=== PATIENT | female | born 1995 | race Caucasian/White ===

== ENCOUNTER 2017-06-28 20:23 | Emergency (ER) | payer OTHER, SELFPAY | END 2017-06-28 21:46 | disposition home or self-care (01) | PROVIDERS: Emergency Provider Nurse Practitioner Family; Family Provider Emergency Medicine; Visit Provider Nurse Practitioner Family | DX: S93.401A Sprain of unspecified ligament of right ankle, initial encounter (principal); X50.1XXA Overexertion from prolonged static or awkward postures, initial encounter; Y93.01 Activity, walking, marching and hiking; Y92.480 Sidewalk as the place of occurrence of the external cause; Z79.899 Other long term (current) drug therapy | CPT/HCPCS: 73610; 73630; 99202 ==

== ENCOUNTER 2017-10-13 14:41 | Emergency (ER) | payer OTHER, SELFPAY ==
[2017-10-13 14:49] VITALS: BP 113/61; PULSE 64; RESP 20; TEMP 36.4; O2SAT 98; BMI 36.5
--- NOTE | 2017-10-13 14:51 | HMH.EDUTC ---
[facility] [place] Impression: Left otitis media Qualifiers: Otitis media type: suppurative Chronicity: acute Recurrence: not specified as recurrent Spontaneous tympanic membrane rupture: without spontaneous rupture Qualified Code(s): H66.002 - Acute suppurative otitis media without spontaneous rupture of ear drum, left ear Disposition: Home, Self-Care Condition on Discharge: Good Instructions: DI for Otitis Media (Middle Ear Infection)-Child Additional Instructions: See PCP if headache and sleep does not improve. Take antibiotic as directed and return to PCP or ED/UTC of symptoms worsen. Prescriptions: Amoxicillin [Amoxicillin 500mg Cap] 500 mg PO TID #30 cap Time of Disposition: 15:15 Medical Decision Making - Bright Inquiry Pt receiving controlled substance: No Vital Signs: 10/13/17 14:49 Temperature 97.6 F Temperature Source Temporal Artery Scan Pulse Rate [Brachial] 64 Respiratory Rate 20 Blood Pressure [Right Arm] 113/61 Blood Pressure Mean [Right Arm] 78 Blood Pressure Source [Right Arm] Automatic Cuff Blood Pressure Position [Right Arm] Sitting 02 Sat by Pulse Oximetry 98 Oxygen Delivery Method Room Air [facility] [place] - General Stated complaint: Left ear Hurting, Bad Antunez Time Seen by Provider: 10/13/17 15:04 Mode of Arrival: Ambulatory Source of Information: Patient Limitations: No Limitations Description of Symptoms (Recalled from Triage Doc. by RN): LEFT EAR PAIN AND HEADACHE (MIGRAINE) SINCE THE September. HEENT Symptoms (Recalled from RN notes): Yes Resp Symptoms (Recalled from RN notes): No Skin Symptoms (Recalled from RN notes): No MS Symptoms (Recalled from RN notes): No Functional Status (Recalled from RN notes): NA - History of Present Illness Provider Complaint: Patient presents with headache for 20 days and left ear pain for 2 days. She reports having a headache since her Mamaw . She has not been sleeping well. Her headache is relieved with Advil Migraine. Her headache is located in the frontotemporal region. She denies sore throat, GI upset, fevers, and sick contacts. - Related Data Home Medications Medication Instructions Recorded Confirmed medroxyprogesterone 150 mg/mL 150 mg IM ONCE 07/06/17 intramuscular suspension Previous Rx's Medication Instructions Recorded Amoxicillin [Amoxicillin 500mg 500 mg PO TID #30 cap 10/13/17 Cap] Allergies Allergy/AdvReac Type Severity Reaction Status Date / Time adhesive [ADHESIVE] Allergy Unknown SWELLING Verified 10/12/17 13:52 - Worker's Comp Is this a Worker's Comp case?: No [facility] History Laterality Cases: Bilateral: Tonsillectomy, Other Amputation: No Fractures: No - Social History Smoking Status: Current every day smoker Alcohol Intake: never Substance Use Type: denies use - Psychiatric History Expresses thoughts of harming self/others: None Suicide Plan Description: No Plan Family Hx:: No significant family history ROS Obtained: Yes All systems reviewed & no additional complaints - Constitutional Constitutional: Reports difficulty sleeping, Reports headache(s) - ENT Ears, Nose, Mouth, and Throat: Reports as per HPI Physical Exam - General General appearance: alert, in no apparent distress - Head Head exam: atraumatic - Eye Eye exam: Present: normal appearance - Expanded ENT Exam TM/Canal exam: Left TM: erythema Throat exam: Present: normal inspection - Chest Chest inspection: Present: symmetric chest wall rise - Respiratory Respiratory exam: Present: normal lung sounds bilaterally. Absent: respiratory distress, wheezes, accessory muscle use - Cardiovascular Cardiovascular exam: Present: regular rate, normal rhythm, normal heart sounds - Neurological Exam Neurological exam: Present: alert, oriented X3 - Psychiatric Psychiatric exam: Present: normal affect - Skin Skin exam: Present: warm, dry, intact - Lymphatic Lymphatic Findings:
--- NOTE | 2017-10-13 14:55 | ED_ITS ---
[facility] [place]ression: Left otitis media Qualifiers: Otitis media type: suppurative Chronicity: acute Recurrence: not specified as recurrent Spontaneous tympanic membrane rupture: without spontaneous rupture Qualified Code(s): H66.002 - Acute suppurative otitis media without spontaneous rupture of ear drum, left ear Disposition: Home, Self-Care Condition on Discharge: Good Instructions: DI for Otitis Media (Middle Ear Infection)-Child Additional Instructions: See PCP if headache and sleep does not improve. Take antibiotic as directed and return to PCP or ED/UTC of symptoms worsen. Prescriptions: Amoxicillin [Amoxicillin 500mg Cap] 500 mg PO TID #30 cap Time of Disposition: 15:15 Medical Decision Making - Bright Inquiry Pt receiving controlled substance: No Vital Signs: 10/13/17 14:49 Temperature 97.6 F Temperature Source Temporal Artery Scan Pulse Rate [Brachial] 64 Respiratory Rate 20 Blood Pressure [Right Arm] 113/61 Blood Pressure Mean [Right Arm] 78 Blood Pressure Source [Right Arm] Automatic Cuff Blood Pressure Position [Right Arm] Sitting 02 Sat by Pulse Oximetry 98 Oxygen Delivery Method Room Air [facility] [place] - General Stated complaint: Left ear Hurting, Bad Antunez Time Seen by Provider: 10/13/17 15:04 Mode of Arrival: Ambulatory Source of Information: Patient Limitations: No Limitations Description of Symptoms (Recalled from Triage Doc. by RN): LEFT EAR PAIN AND HEADACHE (MIGRAINE) SINCE THE September. HEENT Symptoms (Recalled from RN notes): Yes Resp Symptoms (Recalled from RN notes): No Skin Symptoms (Recalled from RN notes): No MS Symptoms (Recalled from RN notes): No Functional Status (Recalled from RN notes): NA - History of Present Illness Provider Complaint: Patient presents with headache for 20 days and left ear pain for 2 days. She reports having a headache since her Mamaw . She has not been sleeping well. Her headache is relieved with Advil Migraine. Her headache is located in the frontotemporal region. She denies sore throat, GI upset, fevers, and sick contacts. - Related Data Home Medications Medication Instructions Recorded Confirmed medroxyprogesterone 150 mg/mL 150 mg IM ONCE 07/06/17 intramuscular suspension Previous Rx's Medication Instructions Recorded Amoxicillin [Amoxicillin 500mg 500 mg PO TID #30 cap 10/13/17 Cap] Allergies Allergy/AdvReac Type Severity Reaction Status Date / Time adhesive [ADHESIVE] Allergy Unknown SWELLING Verified 10/12/17 13:52 - Worker's Comp Is this a Worker's Comp case?: No [facility] History Laterality Cases: Bilateral: Tonsillectomy, Other Amputation: No Fractures: No - Social History Smoking Status: Current every day smoker Alcohol Intake: never Substance Use Type: denies use - Psychiatric History Expresses thoughts of harming self/others: None Suicide Plan Description: No Plan Family Hx:: No significant family history ROS Obtained: Yes All systems reviewed & no additional complaints - Constitutional Constitutional: Reports difficulty sleeping, Reports headache(s) - ENT Ears, Nose, Mouth, and Throat: Reports as per HPI Physical Exam - General General appearance: alert, in no apparent distress - Head Head exam: atraumatic -
[2017-10-13 15:07] VITALS: BP 113/61; PULSE 64; RESP 20; TEMP 36.4; O2SAT 98
== END 2017-10-13 15:07 | disposition home or self-care (01) ==
PROVIDERS: Emergency Provider Physician Assistant; Family Provider Emergency Medicine; PCP Emergency Medicine
DX: H66.002 Acute suppurative otitis media without spontaneous rupture of ear drum, left ear (principal); F17.210 Nicotine dependence, cigarettes, uncomplicated
CPT/HCPCS: 99201

== ENCOUNTER → 2018-01-25 11:51 | Outpatient (CLI) | payer MEDICAID, SELFPAY ==
--- NOTE | 2018-01-25 11:55 | XR_ITS ---
XR foot RT min 3V HISTORY: ITS.REASON: foot pain ORDERING PHYSICIAN: Rakesh Leong PATIENT AGE: 22 years COMPARISON: Left foot same date FINDINGS: No fracture or dislocation. No lytic or blastic change. There is normal mineralization.. The joint spaces are well-preserved. No significant degenerative/arthritic changes. No erosive changes evident. IMPRESSION: Negative, no acute finding
--- NOTE | 2018-01-25 11:55 | XR_ITS ---
XR foot LT min 3V HISTORY: ITS.REASON: edema andrea foot pain ORDERING PHYSICIAN: Rakehs Leong PATIENT AGE: 22 years COMPARISON: Right foot same date FINDINGS: No fracture or dislocation. No lytic or blastic change. There is normal mineralization.. The joint spaces are well-preserved. No significant degenerative/arthritic changes. No erosive changes evident. IMPRESSION: Negative, no acute finding
[2018-01-25 12:59] LABS: Basophils % 0.5 % (0.1-2.0); Eosinophils # 0.2 K/mm3 (0.0-0.4); Eosinophils % 3.1 % (0.1-12.0); Hemoglobin 14.4 g/dL (12.2-16.2); Lymphocytes # 2.7 K/mm3 (0.7-4.5); Lymphocytes % 36.3 K/mm3 (10-50); Mean Corpuscular HGB Conc 31.9 g/dL (31.8-35.4); Mean Corpuscular Volume 90.9 fl (81-99); Mean Platelet Volume 6.7 fl (7.4-10.4); Monocytes # 0.5 K/mm3 (0.1-1.0); Monocytes % 7.4 % (1.7-9.3); Neutrophils # 3.9 K/mm3 (1.8-7.8); Neutrophils % 52.8 % (37.0-80.0); Platelet Count 319 K/mm3 (142-424); Red Blood Count 4.95 M/mm3 (4.20-5.40); Red Cell Distribution Width 12.2 % (11.5-17.5); White Blood Count 7.4 K/mm3 (4.5-13.0)
[2018-01-25 13:43] LABS: Alanine Aminotransferase 31 U/L (12-78); Albumin/Globulin Ratio 1.3 (1.1-1.8); Alkaline Phosphatase 101 U/L (46-116); Anion Gap 11.7 mEq/L (5-15); Aspartate Amino Transferase 12 U/L (15-37); Bilirubin,Total 1.1 mg/dL (0.2-1.0); Blood Urea Nitrogen 6 mg/dL (7-18); C-Reactive Protein 0.3 mg/L (0.0-0.9); Calcium 9.2 mg/dL (8.5-10.1); Carbon Dioxide 26 mmol/L (21.0-32.0); Chloride 107 mmol/L (98-107); Creatinine,Serum 0.79 mg/dL (0.55-1.02); Estimated Glomerular Filt Rate 93 ml/min (>60); GFR (African American) 112 ML/MIN (>60); Globulin 3.2 gm/dl (1.3-3.2); Glucose 69 mg/dL (74-106); Potassium 3.7 mmoL/L (3.5-5.1); Sodium 141 mmol/L (136-145); Total Protein,Serum 7.2 gm/dL (6.4-8.2)
[2018-01-25 16:05] LABS: Erythrocyte Sedimentation Rate 15 mm/hr (0-20)
== END ==
PROVIDERS: PCP Nurse Practitioner Family; Visit Provider Nurse Practitioner Family
DX: M79.671 Pain in right foot (principal); M79.672 Pain in left foot; R60.9 Edema, unspecified
CPT/HCPCS: 36415; 73630; 80053; 85025; 85651; 86140

== ENCOUNTER → 2018-01-27 13:01 | Outpatient (REF) | payer MEDICAID, SELFPAY ==
[2018-01-27 14:23] LABS: Collection Time,Urine 24 hours; Creatinine 24 Hour,Urine 2559 mg/24hr (630-2500); Creatinine,Urine Random 115 mg/dL (20-320); Total Volume,Urine 2225 mL (600-1600)
== END ==
LOC: LAB 13:01
PROVIDERS: Visit Provider Nurse Practitioner Family
DX: M79.671 Pain in right foot (principal); M79.672 Pain in left foot; R60.9 Edema, unspecified
CPT/HCPCS: 82570

== ENCOUNTER → 2018-08-25 11:11 | Outpatient (CLI) | payer MEDICAID, SELFPAY ==
--- NOTE | 2018-08-25 11:14 | MR_ITS ---
MR head/brain wo con HISTORY: Severe posttraumatic headache ITS.REASON: headache ORDERING PHYSICIAN: Willa Meza PATIENT AGE: 23 years Comparison: None TECHNIQUE: Standard multiplanar multiecho sequences are performed without contrast. FINDINGS: No midline shift, mass effect, intracranial hemorrhage, or hydrocephalus. No evidence of acute infarction or restricted diffusion. There is normal astorga-white matter differentiation with no abnormal white matter signal intensity apparent. No intra or extra-axial hemorrhage. The cerebellopontine angle, cerebellum, and brainstem have an unremarkable appearance the pituitary, optic chiasm, corpus callosum, and cerebello cervical junction have an unremarkable appearance. No acute calvarial abnormality. No sinus air-fluid level or mastoid effusion. There is mucosal thickening of the lower aspect of the right maxillary sinus with mucus retention cyst on the floor the left maxillary sinus at 15 mm. IMPRESSION: 1. No acute intracranial findings. Negative MRI of the brain. 2. Bilateral maxillary sinus disease
== END ==
PROVIDERS: PCP Nurse Practitioner Family; Visit Provider Nurse Practitioner Family
DX: R51 Headache (principal); V89.2XXA Person injured in unspecified motor-vehicle accident, traffic, initial encounter
CPT/HCPCS: 70551

== ENCOUNTER 2018-08-31 09:00 | Outpatient (RCR) | payer MEDICAID, SELFPAY | END 2018-08-31 09:05 | disposition home or self-care (01) | LOC: PT 09:00 | PROVIDERS: Visit Provider Nurse Practitioner Family | DX: M54.2 Cervicalgia (principal); M54.5 Low back pain | CPT/HCPCS: 97010; 97014; 97035; 97110; 97163; G0283 ==

== ENCOUNTER → 2018-09-21 16:34 | Outpatient (CLI) | payer MEDICAID, SELFPAY ==
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
== END ==
PROVIDERS: PCP Nurse Practitioner Family; Visit Provider Nurse Practitioner Family
DX: M54.5 Low back pain (principal); V89.2XXA Person injured in unspecified motor-vehicle accident, traffic, initial encounter
CPT/HCPCS: 72148; 76376

== ENCOUNTER → 2019-01-04 15:56 | Outpatient (CLI) | payer MEDICAID, SELFPAY ==
[2019-01-04 18:04] LABS: HCG,Quantitative 0 mIU/mL
== END ==
PROVIDERS: Visit Provider Nurse Practitioner Obstetrics & Gynecology
DX: Z32.00 Encounter for pregnancy test, result unknown (principal)
CPT/HCPCS: 36415; 84702

== ENCOUNTER 2020-04-13 11:19 | Emergency (ER) | payer OTHER, SELFPAY ==
[2020-04-13 11:45] VITALS: BP 139/90; PULSE 79; RESP 18; TEMP 36.6; O2SAT 99; BMI 37.4
--- NOTE | 2020-04-13 11:53 | HMH.EDUTC ---
[facility] [place] Clinical Impression: Otitis media Qualifiers: Otitis media type: unspecified Laterality: right Qualified Code(s): H66.91 - Otitis media, unspecified, right ear Headache Qualifiers: Headache type: unspecified Headache chronicity pattern: unspecified pattern Intractability: not intractable Qualified Code(s): R51.9 - Headache, unspecified Disposition: Home, Self-Care Condition on Discharge: Good Instructions: Middle Ear Infection, DI for Migraine, DI for Headache Additional Instructions: Go home and try to sleep off remainder of headache Return if needed Straight to ER if any life threatening symptoms Follow up with Family Doctor if no improvement or any worsening of symptoms Take medication as prescribed Prescriptions: Amoxicillin [Amoxicillin 875MG Tab] 875 mg PO Q12H #20 tab Transmission Status: Received by [id number] Referrals: Camacho Hoffmann MD [Primary Care Provider] - As needed Forms: Work/School Release Time of Disposition: 12:12 Medical Decision Making - Bright Inquiry Pt receiving controlled substance: No Bright was queried for this patient: No Vital Signs: 04/13/20 11:45 Temperature 97.8 F Temperature Source Oral Pulse Rate [Radial] 79 Respiratory Rate 18 Blood Pressure [Right Arm] 139/90 Blood Pressure Mean [Right Arm] 106 Blood Pressure Source [Right Arm] Automatic Cuff Blood Pressure Position [Right Arm] Sitting 02 Sat by Pulse Oximetry 99 Oxygen Delivery Method Room Air - Lab Data Lab results reviewed: Yes: I reviewed the patient's lab results. Lab Results 04/13/20 11:59: [facility] Clinic Negative Orders (Tests/Meds): ED MEDICATIONS Discontinued Medications Generic Name Dose Route Start Last Admin Trade Name Tony PRN Reason Stop Dose Admin Ketorolac Tromethamine 60 mg 04/13/20 12:13 04/13/20 12:15 Ketorolac 60mg/2ml Vial IM 04/13/20 12:14 60 mg ONCE ONE Administration Medical Decision Narrative: Patient states that Tordol injection is helping with headache [facility] [place] HPI - General Stated complaint: headache Time Seen by Provider: 04/13/20 11:57 Mode of Arrival: Ambulatory Source of Information: Patient Limitations: No Limitations Description of Symptoms (Recalled from Triage Doc. by RN): headache x 2 days HEENT Symptoms (Recalled from RN notes): Yes Resp Symptoms (Recalled from RN notes): No Skin Symptoms (Recalled from RN notes): No MS Symptoms (Recalled from RN notes): No Functional Status (Recalled from RN notes): wnl - History of Present Illness Provider Complaint: Patient states that she has had a headache and pain in her right ear for several days that has got worse States that she has been taking over the counter Tylenol but hasnt helped much States that today her ear was still bothering her and her headache was still there so she came in to get checked - Related Data Previous Rx's Medication Instructions Recorded quetiapine 50 mg tablet 50 mg PO QHS #30 tab 03/05/20 quetiapine 25 mg tablet See Rx Instructions PO QHS #45 tab 03/18/20 Amoxicillin [Amoxicillin 875MG 875 mg PO Q12H #20 tab 04/13/20 Tab] Allergies Allergy/AdvReac Type Severity Reaction Status Date / Time adhesive [ADHESIVE] Allergy Unknown SWELLING Verified 03/12/19 22:55 - Worker's Comp Is this a Worker's Comp case?: No [facility] History - Hepatitis A Screen Drug use history?: No High risk sexual behaviors?: No History of sexually transmitted infection?: No Currently employed?: No Childcare worker?: No Do you have indoor plumbing?: Yes Do you have electricity?: Yes Attestation statement:: This patient has been screened for Hepatitis A risk factors. I have reviewed the patient's past medical history: Yes Medical History: Reports:: Hypertension Denies:: Cancer, Diabetes Mellitus Type 1, Diabetes Mellitus Type 2, MRSA Laterality Cases: Bilateral: Tonsillectomy, Other Other Surgeries: Yes: No Previous Surgery Amp
[2020-04-13 12:11] LABS: UTC Pregnancy Test, Urine Negative (Negative)
[2020-04-13 12:28] VITALS: BP 139/90; PULSE 79; RESP 18; TEMP 36.6; O2SAT 99
== END 2020-04-13 12:29 | disposition home or self-care (01) ==
PROVIDERS: Emergency Provider Nurse Practitioner; PCP Emergency Medicine
DX: H66.91 Otitis media, unspecified, right ear (principal); R51.9 Headache, unspecified; I10 Essential (primary) hypertension
CPT/HCPCS: 81025; 96372; 99202

== ENCOUNTER 2020-05-07 16:44 | Emergency (ER) | payer OTHER, SELFPAY ==
[2020-05-07 17:16] VITALS: BP 124/53; PULSE 84; RESP 16; TEMP 37; O2SAT 100; BMI 35.5
--- NOTE | 2020-05-07 17:34 | HMH.EDUTC ---
[facility] [place]: Otitis media Qualifiers: Otitis media type: suppurative Chronicity: acute Laterality: bilateral Recurrence: non-recurrent Spontaneous tympanic membrane rupture: without spontaneous rupture Qualified Code(s): H66.003 - Acute suppurative otitis media without spontaneous rupture of ear drum, bilateral Disposition: Home, Self-Care Condition on Discharge: Good Instructions: Middle Ear Infection Additional Instructions: Drink plenty of fluids. Take tylenol or ibuprofen for pain or fever. Take the medications as directed. Follow up with your regular doctor. GO TO THE ER FOR ANY WORSENING SYMPTOMS Prescriptions: Amoxicillin [Amoxicillin 500mg Tab] 500 mg PO TID 10 Days #30 tab Transmission Status: Re[facility] by [facility] Referrals: Camacho Hoffmann MD [Primary Care Provider] - Forms: Work/School Release Time of Disposition: 17:47 Medical Decision Making - Medical Records Medical records reviewed: No: I reviewed the patient's medical records. - Bright Inquiry Pt receiving controlled substance: No Vital Signs: 05/07/20 17:16 05/07/20 17:49 Temperature 98.6 F 98.6 F Temperature Source Oral Pulse Rate 84 Pulse Rate [Right Brachial] 84 Respiratory Rate 16 16 Blood Pressure 124/53 L Blood Pressure [Right Arm] 124/53 L Blood Pressure Mean [Right Arm] 76 Blood Pressure Source [Right Arm] Automatic Cuff Blood Pressure Position [Right Arm] Sitting 02 Sat by Pulse Oximetry 100 Oxygen Delivery Method Room Air [facility] [place] - General Stated complaint: Headache, Ear pain Time Seen by Provider: 05/07/20 17:34 Mode of Arrival: Ambulatory Source of Information: Patient Limitations: No Limitations Description of Symptoms (Recalled from Triage Doc. by RN): PATIENT C/O HEADACHE AND BILATERAL EAR PAIN X 3 DAYS HEENT Symptoms (Recalled from RN notes): Yes Resp Symptoms (Recalled from RN notes): No Skin Symptoms (Recalled from RN notes): No MS Symptoms (Recalled from RN notes): No Functional Status (Recalled from RN notes): WNL - History of Present Illness Provider Complaint: She c/o 2 days of worsening bilateral ear pain. - Related Data Home Medications Medication Instructions Recorded Confirmed Quetiapine Fumarate See Rx Instructions PO QHS 05/07/20 05/07/20 Previous Rx's Medication Instructions Recorded Amoxicillin [Amoxicillin 500mg Tab] 500 mg PO TID 10 Days #30 tab 05/07/20 Allergies Allergy/AdvReac Type Severity Reaction Status Date / Time adhesive [ADHESIVE] Allergy Unknown SWELLING Verified 03/12/19 22:55 - Worker's Comp Is this a Worker's Comp case?: No [facility] History - Hepatitis A Screen Drug use history?: No High risk sexual behaviors?: No History of sexually transmitted infection?: No Currently employed?: No Childcare worker?: No Do you have indoor plumbing?: Yes Do you have electricity?: Yes Attestation statement:: This patient has been screened for Hepatitis A risk factors. I have reviewed the patient's past medical history: Yes Medical History: Reports:: Hypertension Denies:: Cancer, Diabetes Mellitus Type 1, Diabetes Mellitus Type 2, MRSA Laterality Cases: Bilateral: Tonsillectomy, Other Other Surgeries: Yes: No Previous Surgery Amputation: No Fractures: No - Social History Smoking Status: Current every day smoker Tobacco Type: cigarettes # Packs/Day (cigarettes): 1 Alcohol Intake: never Alcohol Intake Frequency:: other Substance Use Type: denies use Occupational Status: other Housing: house Family Hx:: Hypertension, Diabetes ROS Obtained: Yes All systems reviewed & no additional complaints - Constitutional Constitutional: Denies chills, Denies fever(s), Reports poor appetite, Reports malaise - Eyes Eyes: Denies eye discharge - ENT Ears, Nose, Mouth, and Throat: Reports as per HPI Physical Exam - General General appearance: alert, in no apparent distress - Head Head exam: a
[2020-05-07 17:49] VITALS: BP 124/53; PULSE 84; RESP 16; TEMP 37; O2SAT 100
== END 2020-05-07 17:53 | disposition home or self-care (01) ==
PROVIDERS: Emergency Provider Nurse Practitioner Family; PCP Emergency Medicine
DX: H66.003 Acute suppurative otitis media without spontaneous rupture of ear drum, bilateral (principal); I10 Essential (primary) hypertension; F17.210 Nicotine dependence, cigarettes, uncomplicated
CPT/HCPCS: 99201

== ENCOUNTER 2020-05-10 20:12 | Emergency (ER) | payer OTHER, SELFPAY ==
[2020-05-10 20:19] VITALS: BP 120/71; PULSE 98; RESP 19; TEMP 37.1; O2SAT 98; BMI 35.5
--- NOTE | 2020-05-10 20:41 | HMH.EDUTC ---
[facility] [place] Clinical Impression: Sore throat, Cough Disposition: Home, Self-Care Condition on Discharge: Good Instructions: Cough, Sore Throat, Middle Ear Infection Additional Instructions: Continue taking oral antibiotics for your ear infection, you need to take them as prescribed for the length of time prescribed to clear up ear infection *Warm salt water gargles may help to soothe the throat *Throat Lozenges *Warm fluids like tea with honey may help to soothe the throat *Sleep elevated *Humidifier/Vaporizer *Flonase 2 sprays in each nostril daily but be aware that it may take 2-3 days before you notice improvement Your throat swab was sent for culture. Those results are typically sent to your primary care. Be sure to follow up in 2-3 days with your family doctor/primary care physician if no improvement so they can review those result and treat if necessary. If you don?t have a primary care doctor, I recommend you get one but in the mean time, you will have to return to a walk in clinic Follow up IMMEDIATELY for new or worsening symptoms or no Noticeable improvement over the next 48-72 hours. 911 for difficulty breathing or swallowing Prescriptions: Fluticasone Propionate [Flonase 50mcg nasal spray 16gm] 1 spr NS DAILY #1 bottle Transmission Status: Pending to [facility] # methylPREDNISolone [Medrol 4mg tab] 4 mg PO DIRECTED #21 tab Transmission Status: Pending to [facility] # Benzonatate [Tessalon Perle 100mg Cap*] 100 mg PO TID PRN #15 cap PRN Reason: Cough Transmission Status: Pending to [facility] # Referrals: Camacho Hoffmann MD [Primary Care Provider] - As needed Forms: Work/School Release Time of Disposition: 20:49 Medical Decision Making - Bright Inquiry Pt receiving controlled substance: No Bright was queried for this patient: No Vital Signs: 05/10/20 20:19 Temperature 98.7 F Temperature Source Oral Pulse Rate [Radial] 98 H Respiratory Rate 19 Blood Pressure [Right Arm] 120/71 Blood Pressure Mean [Right Arm] 87 Blood Pressure Source [Right Arm] Automatic Cuff Blood Pressure Position [Right Arm] Sitting 02 Sat by Pulse Oximetry 98 Oxygen Delivery Method Room Air - Lab Data Lab results reviewed: Yes: I reviewed the patient's lab results. [facility] [place] HPI - General Stated complaint: Sore throat, cough Time Seen by Provider: 05/10/20 20:41 Mode of Arrival: Ambulatory Source of Information: Patient Limitations: No Limitations Description of Symptoms (Recalled from Triage Doc. by RN): sore throat, cough HEENT Symptoms (Recalled from RN notes): Yes Resp Symptoms (Recalled from RN notes): No Skin Symptoms (Recalled from RN notes): No MS Symptoms (Recalled from RN notes): No Functional Status (Recalled from RN notes): wnl - History of Present Illness Provider Complaint: Patient states that is currently on antibiotics for her ears but she has continued to have sore throat States that she hasnt been around anyone with COVID States that she was worried that she may have strep throat or something since boyfriend just got over bronchitis States that she has also been having pressure like feeling still in her ears like she has fluid in there - Related Data Home Medications Medication Instructions Recorded Confirmed Quetiapine Fumarate See Rx Instructions PO QHS 05/07/20 05/07/20 Previous Rx's Medication Instructions Recorded Amoxicillin [Amoxicillin 500mg Tab] 500 mg PO TID 10 Days #30 tab 05/07/20 Benzonatate [Tessalon Perle 100mg 100 mg PO TID PRN #15 cap 05/10/20 Cap*] Fluticasone Propionate [Flonase 1 spr NS DAILY #1 bottle 05/10/20 50mcg nasal spray 16gm] methylPREDNISolone [Medrol 4mg 4 mg PO DIRECTED #21 tab 05/10/20 tab] Allergies Allergy/AdvReac Type Severity Reaction Status Date / Time adhesive [ADHESIVE] Allergy Unknown SWELLING Verified 03/12/19 22:55 - Worker's Comp Is this a Worker's Comp c
[2020-05-10 20:52] LABS: UTC Strep Screen (Rapid) Negative (Negative)
[2020-05-10 20:53] VITALS: BP 120/71; PULSE 98; RESP 19; TEMP 37.1; O2SAT 98
== END 2020-05-10 20:56 | disposition home or self-care (01) ==
PROVIDERS: Emergency Provider Nurse Practitioner; PCP Emergency Medicine
DX: J02.9 Acute pharyngitis, unspecified (principal); R05 Cough; F17.210 Nicotine dependence, cigarettes, uncomplicated; I10 Essential (primary) hypertension
CPT/HCPCS: 87880; 96372; 99202

== ENCOUNTER 2020-05-25 11:36 | Emergency (ER) | payer OTHER, SELFPAY ==
[2020-05-25 12:46] VITALS: BP 135/86; PULSE 91; RESP 14; TEMP 36.8; O2SAT 99; BMI 35.5
--- NOTE | 2020-05-25 12:51 | HMH.EDUTC ---
[facility] [place] Clinical Impression: Headache Qualifiers: Headache type: unspecified Headache chronicity pattern: unspecified pattern Intractability: not intractable Qualified Code(s): R51.9 - Headache, unspecified Disposition: Home, Self-Care Condition on Discharge: Good Instructions: DI for Headache Additional Instructions: Go home lay down and sleep off remainder of migraine headache Return if needed Straight to ER if any life threatening symptoms Follow up with Family Doctor if no improvement or any worsening of symptoms Referrals: Camacho Hoffmann MD [Primary Care Provider] - Forms: Work/School Release Time of Disposition: 13:26 Medical Decision Making - Bright Inquiry Pt receiving controlled substance: No Bright was queried for this patient: No Vital Signs: 05/25/20 12:46 Temperature 98.2 F Temperature Source Oral Pulse Rate [Left Radial] 91 H Pulse Rate [Right Radial] 91 H Respiratory Rate 14 Blood Pressure [Right Arm] 135/86 Blood Pressure Mean [Right Arm] 102 Blood Pressure Source [Right Arm] Automatic Cuff Blood Pressure Position [Right Arm] Sitting 02 Sat by Pulse Oximetry 99 Oxygen Delivery Method Room Air - Lab Data Lab Results 05/25/20 12:52: [facility] Negative Orders (Tests/Meds): ED MEDICATIONS Discontinued Medications Generic Name Dose Route Start Last Admin Trade Name Freq PRN Reason Stop Dose Admin Diphenhydramine HCl 25 mg 05/25/20 13:01 05/25/20 13:19 Diphenhydramine 50mg/Ml Vial IM 05/25/20 13:02 25 mg ONCE ONE Administration Ketorolac Tromethamine 60 mg 05/25/20 13:00 05/25/20 13:19 Ketorolac 60mg/2ml Vial IM 05/25/20 13:01 60 mg ONCE ONE Administration Medical Decision Narrative: Patient states that she is feeling much better after medication [facility] [place] - General Stated complaint: migraine Time Seen by Provider: 05/25/20 12:52 Mode of Arrival: Ambulatory Source of Information: Patient Limitations: No Limitations Description of Symptoms (Recalled from Triage Doc. by RN): pt reports migraine since 2am HEENT Symptoms (Recalled from RN notes): Yes (headache) Resp Symptoms (Recalled from RN notes): No Skin Symptoms (Recalled from RN notes): No MS Symptoms (Recalled from RN notes): No Functional Status (Recalled from RN notes): wnl - History of Present Illness Provider Complaint: Patient reports history of Migraine headaches States that around 2 am she woke up with a headache and it has continued to get worse States that she has been seen and treated here before for it States that she was still having it this evening so she come in - Related Data Home Medications Medication Instructions Recorded Confirmed Quetiapine Fumarate See Rx Instructions PO QHS 05/07/20 05/25/20 Allergies Allergy/AdvReac Type Severity Reaction Status Date / Time adhesive [ADHESIVE] Allergy Unknown SWELLING Verified 05/25/20 12:52 - Worker's Comp Is this a Worker's Comp case?: No Is this an [employer] Worker's Comp?: No Is this a [employer] Worker's Comp?: No [facility] History - Hepatitis A Screen Drug use history?: No High risk sexual behaviors?: No History of sexually transmitted infection?: No Currently employed?: No Childcare worker?: No Do you have indoor plumbing?: Yes Do you have electricity?: Yes Attestation statement:: This patient has been screened for Hepatitis A risk factors. Medical History: Reports:: Hypertension Denies:: Cancer, Diabetes Mellitus Type 1, Diabetes Mellitus Type 2, MRSA Laterality Cases: Bilateral: Tonsillectomy, Other Other Surgeries: Yes: No Previous Surgery Amputation: No Fractures: No - Social History Smoking Status: Current every day smoker Tobacco Type: cigarettes # Packs/Day (cigarettes): 1 Alcohol Intake: never Alcohol Intake Frequency:: other Substance Use Type: denies use Occupational Status: employed Housing: house Household Members: family Family Hx:: Hypertension, Diabetes ROS
[2020-05-25 12:53] LABS: UTC Pregnancy Test, Urine Negative (Negative)
[2020-05-25 13:35] VITALS: BP 135/86; PULSE 91; RESP 14; TEMP 36.8; O2SAT 99
== END 2020-05-25 13:35 | disposition home or self-care (01) ==
PROVIDERS: Emergency Provider Nurse Practitioner; PCP Emergency Medicine
DX: G43.909 Migraine, unspecified, not intractable, without status migrainosus (principal); I10 Essential (primary) hypertension; F17.210 Nicotine dependence, cigarettes, uncomplicated
CPT/HCPCS: 81025; 96372; 99202

== ENCOUNTER 2020-12-10 01:27 | Emergency (ER) | payer OTHER, SELFPAY ==
[2020-12-10 01:37] VITALS: BP 161/83; PULSE 96; RESP 18; TEMP 36.6; O2SAT 99; BMI 38.9
--- NOTE | 2020-12-10 02:10 | HMH.EDSKAF ---
ED Disposition Clinical Impression: Cellulitis Qualifiers: Site of cellulitis: extremity Site of cellulitis of extremity: lower extremity Laterality: left Qualified Code(s): L03.116 - Cellulitis of left lower limb Disposition: Home, Self-Care Condition on Discharge: Good Instructions: DI for Skin Abscess Additional Instructions: use meds and see pcp for follow up Prescriptions: Minocycline HCl [Minocycline HCl 100mg Tab*] 100 mg PO BID #20 tab Transmission Status: Pending to Clinic Pharmacy [facility] Referrals: Camacho Hoffmann MD [Primary Care Provider] - - Critical Care Critical Care Time: No Attestation: On 12/10/20, the high probability of a clinically significant, sudden or life threatening deterioration of the following system(s) required my full and direct attention, intervention and personal management. The time I documented below is in addition to time spent performing reported procedures but includes the following listed in this critical care notation. Medical Decision Making - Medical Records Medical records reviewed: Yes: I reviewed the patient's medical records. - Bright Inquiry Pt receiving controlled substance: No Vital Signs: 12/10/20 01:37 Temperature 97.9 F Temperature Source Oral Pulse Rate [Right] 96 H Respiratory Rate 18 Blood Pressure [Right Arm] 161/83 H Blood Pressure Mean [Right Arm] 109 Blood Pressure Source [Right Arm] Automatic Cuff Blood Pressure Position [Right Arm] Sitting 02 Sat by Pulse Oximetry 99 Oxygen Delivery Method Room Air Skin/Abscess/FB HPI - General Chief complaint: Skin/Abscess/Foreign Body Stated complaint: red sore on left leg, ? bug bite Time Seen by Provider: 12/10/20 01:50 Mode of Arrival: Ambulatory Source of Information: Patient, Significant Other, Medical Record Limitations: No Limitations Description of Symptoms (Recalled from ER Triage Doc. by RN): Pt states she has a red bump behind her left knee for a week, she states there is some numbness around it. Pt presents with a small non-draining bump behind her left knee. - History of Present Illness HPI narrative: reddness and sense of dec sensation to area on lt lower leg which started as bump- possible insect bite - now with reddness - and has no fever or flu like illness complaint: insect bite/sting Onset (ago): day(s) Tetanus up to date: unsure Location: LLE Severity: moderate Associated symptoms: denies other symptoms Treatments prior to arrival: none - Related Data Previous Rx's Medication Instructions Recorded Minocycline HCl [Minocycline HCl 100 mg PO BID #20 tab 12/10/20 100mg Tab*] Allergies Allergy/AdvReac Type Severity Reaction Status Date / Time adhesive [ADHESIVE] Allergy Unknown SWELLING Verified 10/06/20 14:32 [facility] History - Hepatitis A Screen Drug use history?: No High risk sexual behaviors?: No History of sexually transmitted infection?: No Currently employed?: No Childcare worker?: No Do you have indoor plumbing?: Yes Do you have electricity?: Yes Attestation statement:: This patient has been screened for Hepatitis A risk factors. I have reviewed the patient's past medical history: Yes Medical History: Reports:: Hypertension Denies:: Cancer, Diabetes Mellitus Type 1, Diabetes Mellitus Type 2, MRSA Laterality Cases: Bilateral: Tonsillectomy, Other Other Surgeries: Yes: No Previous Surgery Amputation: No Fractures: No - Social History Smoking Status: Current every day smoker Tobacco Type: cigarettes # Packs/Day (cigarettes): 1 Alcohol Intake: never Alcohol Intake Frequency:: other Substance Use Type: denies use Occupational Status: unemployed Housing: house Household Members: family Family Hx:: Hypertension, Diabetes ROS Obtained: Yes All systems reviewed & no additional complaints - Constitutional Constitutional: Denies fever(s) - Eyes Eyes: Denies change in vision - ENT Ears, Nose, Mouth, and Throat: Denies sore throat -
[2020-12-10 02:19] VITALS: BP 151/81; PULSE 92; RESP 18; TEMP 36.6; O2SAT 99
== END 2020-12-10 02:25 | disposition home or self-care (01) ==
PROVIDERS: Emergency Provider Emergency Medicine; PCP Emergency Medicine
DX: L03.116 Cellulitis of left lower limb (principal); I10 Essential (primary) hypertension
CPT/HCPCS: 99281

== ENCOUNTER 2020-12-16 23:10 | Emergency (ER) | payer OTHER, SELFPAY ==
[2020-12-16 23:11] VITALS: BP 154/96; PULSE 85; RESP 20; TEMP 36.8; O2SAT 100; BMI 37.8
[2020-12-16 23:31] LABS: Urine Pregnancy, HCG Qual. Negative (Negative)
--- NOTE | 2020-12-16 23:41 | HMH.EDHA ---
ED Disposition Clinical Impression: Headache Qualifiers: Headache type: unspecified Headache chronicity pattern: unspecified pattern Intractability: not intractable Qualified Code(s): R51.9 - Headache, unspecified Disposition: Home, Self-Care Condition on Discharge: Good Instructions: DI for Nausea -- Adult Additional Instructions: see pcp for follow up Referrals: Camacho Hoffmann MD [Primary Care Provider] - - Critical Care Critical Care Time: No Attestation: On 12/16/20, the high probability of a clinically significant, sudden or life threatening deterioration of the following system(s) required my full and direct attention, intervention and personal management. The time I documented below is in addition to time spent performing reported procedures but includes the following listed in this critical care notation. Medical Decision Making - Medical Records Medical records reviewed: Yes: I reviewed the patient's medical records. - Bright Inquiry Pt receiving controlled substance: No Vital Signs: 12/16/20 23:11 Temperature 98.2 F Temperature Source Oral Pulse Rate [Right] 85 Respiratory Rate 20 Blood Pressure [Right Arm] 154/96 H Blood Pressure Mean [Right Arm] 115 Blood Pressure Source [Right Arm] Automatic Cuff 02 Sat by Pulse Oximetry 100 Oxygen Delivery Method Room Air - Lab Data Lab results reviewed: Yes: I reviewed the patient's lab results. Lab Results 12/16/20 23:15: Urine HCG, Qual Negative Orders (Tests/Meds): ORDERS Category Date Time Status Serum [HCG Qualitative, Serum] Stat Lab 12/16/20 23:48 Received Headache HPI - General Chief Complaint: Recheck/Abnormal Lab/Rx Stated Complaint: nausea,DALTON Time Seen by Provider: 12/16/20 23:20 Mode of Arrival: Family Vehicle Source of Information: Patient, Parent(s), Medical Record Limitations: No Limitations Description of Symptoms (Recalled from ER Triage Doc. by RN): Pt requesting a check d/t being nauseated for 1 wk and today started to have a headache. Pt further states that only the blood test can tell when I'm . - History of Present Illness HPI Narrative: nausea over the last week w/o vomiting and finished abx yesterday Complaint: headache Onset (ago): day(s) Location: diffuse Severity: mild Quality: intermittent Context: occurred at rest Associated symptoms: none Treatments prior to arrival: none - Related Data Home Medications Medication Instructions Recorded Confirmed No Known Home Medications 12/16/20 12/16/20 Allergies Allergy/AdvReac Type Severity Reaction Status Date / Time adhesive [ADHESIVE] Allergy Unknown SWELLING Verified 10/06/20 14:32 [facility] History - Hepatitis A Screen Drug use history?: No High risk sexual behaviors?: No History of sexually transmitted infection?: No Currently employed?: No Childcare worker?: No Do you have indoor plumbing?: Yes Do you have electricity?: Yes Attestation statement:: This patient has been screened for Hepatitis A risk factors. I have reviewed the patient's past medical history: Yes Medical History: Reports:: Hypertension Denies:: Cancer, Diabetes Mellitus Type 1, Diabetes Mellitus Type 2, MRSA Laterality Cases: Bilateral: Tonsillectomy, Other Other Surgeries: Yes: No Previous Surgery Amputation: No Fractures: No - Social History Smoking Status: Current every day smoker Tobacco Type: cigarettes # Packs/Day (cigarettes): 1 Alcohol Intake: never Alcohol Intake Frequency:: other Substance Use Type: denies use Occupational Status: unemployed Housing: house Household Members: family Family Hx:: Hypertension, Diabetes ROS Obtained: Yes All systems reviewed & no additional complaints - Constitutional Constitutional: Denies fever(s) - Eyes Eyes: Denies change in vision - ENT Ears, Nose, Mouth, and Throat: Denies sore throat - Cardiovascular Cardiovascular: Denies chest pain - Respiratory Resp
[2020-12-17 00:12] LABS: HCG Qualitative, Serum Negative (Negative)
[2020-12-17 00:22] VITALS: BP 148/88; PULSE 79; RESP 18; TEMP 36.8; O2SAT 99
== END 2020-12-17 00:26 | disposition home or self-care (01) ==
PROVIDERS: Emergency Provider Emergency Medicine; PCP Emergency Medicine
DX: R51.9 Headache, unspecified (principal); R11.0 Nausea; Z91.048 Other nonmedicinal substance allergy status; Z32.02 Encounter for pregnancy test, result negative
CPT/HCPCS: 81025; 84703; 99282

== ENCOUNTER → 2021-02-09 14:56 | Outpatient (CLI) | payer OTHER, SELFPAY ==
[2021-02-09 16:53] LABS: HCG,Quantitative 288 mIU/ml (0-5.42)
== END ==
PROVIDERS: Visit Provider Obstetrics & Gynecology
DX: Z34.90 Encounter for supervision of normal pregnancy, unspecified, unspecified trimester (principal)
CPT/HCPCS: 36415; 84702

== ENCOUNTER → 2021-02-11 15:22 | Outpatient (CLI) | payer OTHER, SELFPAY ==
[2021-02-11 17:31] LABS: HCG,Quantitative 646 mIU/ml (0-5.42)
== END ==
PROVIDERS: Visit Provider Obstetrics & Gynecology
DX: Z34.90 Encounter for supervision of normal pregnancy, unspecified, unspecified trimester (principal)
CPT/HCPCS: 36415; 84702

== ENCOUNTER → 2021-02-25 11:08 | Outpatient (CLI) | payer OTHER, SELFPAY ==
[2021-02-25 13:14] LABS: Basophils % 0.4 % (0.1-2.0); Eosinophils # 0.2 K/mm3 (0.0-0.4); Eosinophils % 2.4 % (0.1-12.0); Hematocrit 36.9 % (37.0-47.0); Hemoglobin 12.3 g/dL (12.2-16.2); Lymphocytes # 2.9 K/mm3 (0.7-4.5); Lymphocytes % 31.1 % (10-50); Mean Corpuscular HGB Conc 33.3 g/dL (31.8-35.4); Mean Corpuscular Hemoglobin 27.9 pg (27.0-31.2); Mean Platelet Volume 7.8 fl (7.4-10.4); Monocytes # 0.6 K/mm3 (0.1-1.0); Monocytes % 6.2 % (1.7-9.3); Neutrophils # 5.7 K/mm3 (1.8-7.8); Neutrophils % 59.9 % (37.0-80.0); Platelet Count 327 K/mm3 (142-424); Red Blood Count 4.39 M/mm3 (4.20-5.40); Red Cell Distribution Width 14.6 % (11.5-17.5); White Blood Count 9.5 K/mm3 (4.8-10.8)
[2021-02-26 08:52] LABS: HSV 2 IgG, Type Spec <0.91 index (0.00-0.90); Hepatitis B Surface Antigen Negative (Negative); Hepatitis C Antibody <0.1 s/co ratio (0.0-0.9); Rubella Antibodies, IgG <0.90 index (Immune >0.99)
[2021-02-26 10:27] LABS: HIV Screen 4th Generation wRfx Non Reactive (Non Reactive); Rapid Plasma Reagin Ab Titer Non Reactive (NonRea<1:1)
[2021-02-27 20:10] LABS: Neisseria gonorrhoeae, NAA Negative (Negative)
== END ==
PROVIDERS: Visit Provider Nurse Practitioner Obstetrics & Gynecology
DX: Z34.90 Encounter for supervision of normal pregnancy, unspecified, unspecified trimester (principal)
CPT/HCPCS: 36415; 85025; 86592; 86695; 86703; 86762; 86790; 86850; 87340; 87380; 87491; 87591; G0432

== ENCOUNTER → 2021-02-25 16:50 | Outpatient (CLI) | payer OTHER, SELFPAY | PROVIDERS: Visit Provider Nurse Practitioner Obstetrics & Gynecology | DX: Z34.90 Encounter for supervision of normal pregnancy, unspecified, unspecified trimester (principal) | CPT/HCPCS: 87491; 87591 ==

== ENCOUNTER → 2021-03-05 13:10 | Outpatient (CLI) | payer OTHER, SELFPAY ==
--- NOTE | 2021-03-05 13:11 | US_ITS ---
PROCEDURE: US OB <= 14 WEEKS FETUS CLINICAL INDICATION: for dates COMPARISON: No exams were available for comparison FINDINGS: An intrauterine gestational sac is present with a pole with a crown-rump length of 1.38cm correlating to gestational age of 7weeks 5days. heart tones are present with an FHR of 144bpm. Yolk sac is noted. Unremarkable adnexa IMPRESSION: Live IUP at 7 weeks 5 days Estimated due date by Ultrasound is 10/17/2021 Dictated by: Pillo Nuñez MD 03/05/2021 14:36 Pillo Nuñez MD in OV 03/05/2021 14:36
== END ==
PROVIDERS: PCP Emergency Medicine; Visit Provider Nurse Practitioner Obstetrics & Gynecology
DX: Z34.90 Encounter for supervision of normal pregnancy, unspecified, unspecified trimester (principal)
CPT/HCPCS: 76801

== ENCOUNTER 2021-03-11 19:15 | Emergency (ER) | payer OTHER, SELFPAY ==
[2021-03-11 20:19] VITALS: BP 133/77; PULSE 79; RESP 18; TEMP 36.8; O2SAT 100; BMI 39.2
[2021-03-11 20:40] LABS: Microscopic, Urine URINE MICROSCOPIC (MICROSCOPIC)
[2021-03-11 20:49] LABS: Basophils % 0.2 % (0.1-2.0); Eosinophils # 0.2 K/mm3 (0.0-0.4); Eosinophils % 2.1 % (0.1-12.0); Hematocrit 35.8 % (37.0-47.0); Hemoglobin 11.2 g/dL (12.2-16.2); Lymphocytes % 23.8 % (10-50); Mean Corpuscular HGB Conc 31.4 g/dL (31.8-35.4); Mean Corpuscular Hemoglobin 28.2 pg (27.0-31.2); Mean Corpuscular Volume 89.7 fl (81-99); Mean Platelet Volume 8.1 fl (7.4-10.4); Monocytes # 0.4 K/mm3 (0.1-1.0); Monocytes % 4.8 % (1.7-9.3); Neutrophils # 5.7 K/mm3 (1.8-7.8); Neutrophils % 69.1 % (37.0-80.0); Platelet Count 320 K/mm3 (142-424); Red Blood Count 3.99 M/mm3 (4.20-5.40); Red Cell Distribution Width 14.3 % (11.5-17.5); White Blood Count 8.3 K/mm3 (4.8-10.8)
[2021-03-11 20:50] LABS: Alanine Aminotransferase 23 U/L (12-78); Albumin/Globulin Ratio 1.4 (1.1-1.8); Alkaline Phosphatase 64 U/L (38-126); Anion Gap 14.1 mEq/L (5-15); Aspartate Amino Transferase 24 U/L (14-36); Bilirubin,Total 0.3 mg/dl (0.2-1.3); Blood Urea Nitrogen 7 mg/dl (7-17); Calcium 9.1 mg/dl (8.4-10.2); Carbon Dioxide 22 mmol/L (22.0-30.0); Chloride 105 mmol/L (98-107); Creatinine Clearance Estimated 217 mL/min (50-200); Estimated Glomerular Filt Rate 104 ml/min (>60); GFR (African American) 125 ML/MIN (>60); Globulin 2.9 g/dL (1.3-3.2); Glucose 99 mg/dl (74-100); Potassium 4.1 mmoL/L (3.5-5.1); Sodium 137 mmol/L (136-145); Total Protein,Serum 6.9 g/dl (6.3-8.2)
[2021-03-11 20:50] LABS: Appearance,Urine CLEAR (Clear); Bilirubin,Urine Negative (Negative); Blood, Urine Negative (Negative); Color,Urine YELLOW (Yellow); Glucose,Urine (UA) Negative (Negative); Ketones,Urine Negative (Negative); Leukocyte Esterase,Urine 1+ (Negative); Nitrate,Urine Negative (Negative); PH,Urine 6.5 (5.0-8.5); Protein,Urine Negative (Negative); Specific Gravity, Urine 1.025 (1.005-1.030); Urobilinogen,Urine 0.2 EU/dl (0.2)
[2021-03-11 21:24] LABS: Bacteria,Urine 1+ /lpf
--- NOTE | 2021-03-11 22:07 | HMH.EDGENADL ---
ED Disposition Clinical Impression: UTI (urinary tract infection) Qualifiers: Urinary tract infection type: acute cystitis Hematuria presence: without hematuria Qualified Code(s): N30.00 - Acute cystitis without hematuria Upper respiratory infection Qualifiers: URI type: unspecified viral URI Qualified Code(s): J06.9 - Acute upper respiratory infection, unspecified Disposition: Home, Self-Care Condition on Discharge: Good Instructions: DI for Acute Bronchitis Prescriptions: Cefdinir [Omnicef 300mg Capsule] 300 mg PO BID 10 Days #20 cap Transmission Status: Pending to Clinic Pharmacy [facility] Referrals: Camacho Hoffmann MD [Primary Care Provider] - Time of Disposition: 22:26 - Critical Care Critical Care Time: No Attestation: On 03/11/21, the high probability of a clinically significant, sudden or life threatening deterioration of the following system(s) required my full and direct attention, intervention and personal management. The time I documented below is in addition to time spent performing reported procedures but includes the following listed in this critical care notation. Medical Decision Making - Medical Records Medical records reviewed: Yes: I reviewed the patient's medical records. - Bright Inquiry Pt receiving controlled substance: No Vital Signs: 03/11/21 20:19 Temperature 98.2 F Temperature Source Oral Pulse Rate [Right Brachial] 79 Respiratory Rate 18 Blood Pressure [Right Arm] 133/77 Blood Pressure Mean [Right Arm] 95 Blood Pressure Source [Right Arm] Automatic Cuff Blood Pressure Position [Right Arm] Sitting 02 Sat by Pulse Oximetry 100 Oxygen Delivery Method Room Air - Lab Data Lab Results 03/11/21 20:00: Urine Color Yellow, Urine Appearance Clear, Urine pH 6.5, Ur Specific [place] 1.025, Urine Protein Negative, Urine Glucose (UA) Negative, Urine Ketones Negative, Urine Blood Negative, Urine Nitrate Negative, Urine Bilirubin Negative, Urine Urobilinogen 0.2, Ur Leukocyte Esterase 1+ A, Urine RBC None, Urine WBC 3-5, Ur Squamous Epith Cells 3-5, Urine Bacteria 1+ 03/11/21 20:10: WBC 8.3, RBC 3.99 L, Hgb 11.2 L, Hct 35.8 L, MCV 89.7, MCH 28.2, MCHC 31.4 L, RDW 14.3, Plt Count 320, MPV 8.1, Neut % (Auto) 69.1, Lymph % (Auto) 23.8, [place] % (Auto) 4.8, Eos % (Auto) 2.1, Baso % (Auto) 0.2, Neut # (Auto) 5.7, Lymph # (Auto) 2.0, [place] # (Auto) 0.4, Eos # (Auto) 0.2, Baso # (Auto) 0.0 03/11/21 20:10: Sodium 137, Potassium 4.1, Chloride 105, Carbon Dioxide 22, Anion Gap 14.1, BUN 7, Creatinine 0.70, Estimated Creat Clear 217, Estimated GFR 104, Est GFR ( Amer) 125, Glucose 99, Calcium 9.1, Total Bilirubin 0.3, AST 24, ALT 23, Alkaline Phosphatase 64, Total Protein 6.9, Albumin 4.0, Globulin 2.9, Albumin/Globulin Ratio 1.4, HCG, Quant [id number] Result diagrams: 03/11/21 20:10 03/11/21 20:10 Orders (Tests/Meds): ED MEDICATIONS Discontinued Medications Generic Name Dose Route Start Last Admin Trade Name Tony PRN Reason Stop Dose Admin Acetaminophen 1,000 mg 03/11/21 20:43 03/11/21 21:07 Acetaminophen 1,000mg/100ml Vial IV 03/11/21 20:44 Not Given ONCE ONE Acetaminophen 1,000 mg 03/11/21 21:06 03/11/21 21:07 Acetaminophen 500mg Tab PO 03/11/21 21:07 1,000 mg ONCE ONE Administration Sodium Chloride 1,000 mls @ 999 mls/hr 03/11/21 20:45 03/11/21 21:07 Sod Chlor 0.9% 1000ml Bag IV 03/11/21 21:45 999 mls/hr .Q1H1M DANIA Administration ORDERS Category Date Time Status Rapid PCR Covid and Flu A/B Stat Lab 03/11/21 22:10 Received Urine Culture Stat Micro 03/11/21 20:00 Received Medical Decision Narrative: 25-year-old female who presents 8 weeks with headache congestion rhinorrhea and cough. She does have a complaint of mild left-sided abdominal pain over the lower portion only after cough. Her abdominal exam is benign a bedside transabdominal ultrasound demonstrates intrauterine gestation with a normal heart rate i
[2021-03-11 22:14] LABS: Coronavirus 19, PCR Not Detected (NotDetected); Influenza A, PCR Not Detected (NotDetected); Influenza B, PCR Not Detected (NotDetected)
[2021-03-11 22:39] VITALS: BP 123/78; PULSE 72; RESP 18; TEMP 36.8; O2SAT 100
--- NOTE | 2021-03-11 23:55 | PC.NURSE ---
informed patient of negative covid result
== END 2021-03-11 22:42 | disposition home or self-care (01) ==
PROVIDERS: Emergency Provider Student in an Organized Health Care Education/Training Program; PCP Emergency Medicine
DX: O23.11 Infections of bladder in pregnancy, first trimester (principal); Z3A.08 8 weeks gestation of pregnancy; J06.9 Acute upper respiratory infection, unspecified; F17.210 Nicotine dependence, cigarettes, uncomplicated; Z91.048 Other nonmedicinal substance allergy status
CPT/HCPCS: 80053; 81001; 84702; 85025; 87086; 96365; 99283; U0003

== ENCOUNTER 2021-03-17 15:42 | Emergency (ER) | payer OTHER, SELFPAY ==
[2021-03-17 17:05] VITALS: BP 104/60; PULSE 84; RESP 19; TEMP 37; O2SAT 99; BMI 37.8
[2021-03-17 17:15] VITALS: BP 104/60; PULSE 84; RESP 19; TEMP 37
[2021-03-17 17:38] LABS: Apearance,Urine Clear (Clear); Bilirubin,Urine Negative (Negative); Blood, Urine Negative (Negative); Color,Urine Yellow (Yellow); Glucose,Urine (UA) Negative (Negative); Ketones,Urine Negative (Negative); PH,Urine 6.5 (5.0-8.5); Protein,Urine Negative (Negative); Specific Gravity, Urine 1.015 (1.005-1.030); UTC Leukocyte Esterase,Urine Trace (Negative); UTC Nitrate,Urine Negative (Negative); Urobilinogen,Urine 0.2 EU/dl (0.2)
--- NOTE | 2021-03-17 17:47 | HMH.EDUTC ---
[facility] [place] Disposition Clinical Impression: Viral syndrome, Exposure to COVID-19 virus Qualifiers: Weeks of gestation: 9 weeks Qualified Code(s): Z3A.09 - 9 weeks gestation of UTI (urinary tract infection) Qualifiers: Urinary tract infection type: site unspecified Hematuria presence: without hematuria Qualified Code(s): N39.0 - Urinary tract infection, site not specified Disposition: Home, Self-Care Condition on Discharge: Good Instructions: Preventing the Spread of Coronavirus Discharge Instructions, DI for COVID-19 (Suspected or Confirmed ), Urinary Tract Infection, DI for Urinary Tract Infection (UTI) Additional Instructions: Drink plenty of fluids. Take tylenol for pain or fever. Return if you begin to have difficulty breathing. Follow up with your regular doctor. Make sure you discuss your symptoms with Dr. Foster. A UTI during can be dangerous. GO TO THE ER FOR ANY WORSENING SYMPTOMS Quarantine until you know the results of your covid-19 test. If it is positive, the health department should call you and give you further instructions about your length of Quarantine and other things. Notify your school or workplace of your results and follow their instructions regarding return to work/school. Referrals: Camacho Hoffmann MD [Primary Care Provider] - Time of Disposition: 17:55 Medical Decision Making - Medical Records Medical records reviewed: No: I reviewed the patient's medical records. - Bright Inquiry Pt receiving controlled substance: No Vital Signs: 03/17/21 17:05 03/17/21 17:15 Temperature 98.6 F 98.6 F Temperature Source Oral Pulse Rate 84 Pulse Rate [Left] 84 Respiratory Rate 19 19 Blood Pressure 104/60 L Blood Pressure [Right Arm] 104/60 L Blood Pressure Mean [Right Arm] 74 Blood Pressure Source [Right Arm] Automatic Cuff 02 Sat by Pulse Oximetry 99 - Lab Data Lab Results 03/17/21 17:13: Urine Color Yellow, Urine Appearance Clear, Urine pH 6.5, Ur Specific [place] 1.015, Urine Protein Negative, Urine Glucose (UA) Negative, Urine Ketones Negative, Urine Blood Negative, Urine Nitrate Negative, Urine Bilirubin Negative, Urine Urobilinogen 0.2, Ur Leukocyte Esterase Trace Orders (Tests/Meds): ORDERS Category Date Time Status Covid-19 Nasal PCR ([facility]) Routine Lab 03/17/21 17:13 Ordered Medical Decision Narrative: She refused any treatment for a UTI. We sent her urine sample that we collected today for a urine culture. She states that she will call Dr. Foster in the morning and go on his instructions about what to do about her possible uti. [facility] [place] HPI - General Stated complaint: sore throat, headache, congestion, cough Time Seen by Provider: 03/17/21 17:47 Mode of Arrival: Ambulatory Source of Information: Patient Limitations: No Limitations Description of Symptoms (Recalled from Triage Doc. by RN): pt c/o nasal drainage, weakness, DALTON and cough. pt was exposed last week to pos covid pt. HEENT Symptoms (Recalled from RN notes): Yes (DALTON and nasal drainage) Resp Symptoms (Recalled from RN notes): Yes (cough) Skin Symptoms (Recalled from RN notes): No MS Symptoms (Recalled from RN notes): No Functional Status (Recalled from RN notes): weakness - History of Present Illness Provider Complaint: She states that for the past 2 days she has had a scratchy throat, sinus drainage, dry cough and she has felt bad. She was exposed to covid-19 about 5 days ago. - Related Data Previous Rx's Medication Instructions Recorded promethazine 12.5 mg tablet 12.5 mg PO Q4-6H #30 tab 03/10/21 Cefdinir [Omnicef 300mg Capsule] 300 mg PO BID 10 Days #20 cap 03/11/21 Allergies Allergy/AdvReac Type Severity Reaction Status Date / Time adhesive [ADHESIVE] Allergy Unknown SWELLING Verified 02/25/21 10:21 - Worker's Comp Is this a Worker's Comp case?: No [facility] History - Hepatitis A Screen Drug use history?: No High risk sexual b
== END 2021-03-17 18:05 | disposition home or self-care (01) ==
PROVIDERS: Emergency Provider Nurse Practitioner Family; PCP Emergency Medicine
DX: B34.9 Viral infection, unspecified (principal); Z20.822 Contact with and (suspected) exposure to COVID-19; O23.11 Infections of bladder in pregnancy, first trimester; Z3A.09 9 weeks gestation of pregnancy; I10 Essential (primary) hypertension; F17.210 Nicotine dependence, cigarettes, uncomplicated
CPT/HCPCS: 81003; 99202; G0463; U0003

== ENCOUNTER → 2021-04-22 11:57 | Outpatient (CLI) | payer OTHER, SELFPAY | PROVIDERS: Visit Provider Nurse Practitioner Obstetrics & Gynecology | DX: O28.3 Abnormal ultrasonic finding on antenatal screening of mother (principal); Z36.0 Encounter for antenatal screening for chromosomal anomalies; Z31.430 Encounter of female for testing for genetic disease carrier status for procreative management | CPT/HCPCS: 36415 ==

== ENCOUNTER 2021-05-17 23:46 | Emergency (ER) | payer OTHER, SELFPAY ==
[2021-05-18 00:04] VITALS: BP 158/80; PULSE 112; RESP 18; TEMP 36.5; O2SAT 98; BMI 41.1
--- NOTE | 2021-05-18 00:12 | US_ITS ---
PROCEDURE INFORMATION: Exam: US , Limited Exam date and time: 05/18/2021 12:12 AM Age: 25 years old Clinical indication: complicated by abdominal or pelvic pain; Left lower quadrant; Second trimester (14 weeks 0 days to 27 weeks 6 days); Gestational age or lmp: Grady 10/17/2021; ; Additional info: Llq pain/no movement felt TECHNIQUE: Imaging protocol: Real-time ultrasound of the maternal uterus with image documentation. Exam focused on the clinical indication. COMPARISON: US OB <= 14 WEEKS FETUS 03/05/2021 1:55 PM FINDINGS: Gestation: Single live intrauterine gestation. heart rate: heart rate of 153 beats per minute. Presentation: Cephalic. Placenta: Anterior placenta. No placenta previa or abruption. Amniotic fluid: Normal. BIOMETRY: Gestational age (AUA): Estimated gestational age of 18 weeks 2 days by measurements. Estimated due date (AUA): 10/17/2021 by ultrasound. MATERNAL: Cervix: No cervical dilatation or effacement. Right ovary: Normal. Left ovary: Normal. Intraperitoneal space: No significant free fluid. IMPRESSION: Single live intrauterine gestation.
--- NOTE | 2021-05-18 00:17 | PC.NURSE ---
[facility] 157, LOCATED LEFT LOW QUADRANT ABD
[2021-05-18 00:20] LABS: Basophils % 0.3 % (0.1-2.0); Eosinophils # 0.2 K/mm3 (0.0-0.4); Eosinophils % 2.3 % (0.1-12.0); Hematocrit 37.2 % (37.0-47.0); Hemoglobin 11.9 g/dL (12.2-16.2); Lymphocytes # 2.3 K/mm3 (0.7-4.5); Lymphocytes % 22.8 % (10-50); Mean Corpuscular HGB Conc 31.9 g/dL (31.8-35.4); Mean Corpuscular Hemoglobin 28.7 pg (27.0-31.2); Mean Corpuscular Volume 89.9 fl (81-99); Mean Platelet Volume 8.4 fl (7.4-10.4); Monocytes # 0.5 K/mm3 (0.1-1.0); Monocytes % 4.7 % (1.7-9.3); Neutrophils # 7.1 K/mm3 (1.8-7.8); Neutrophils % 69.9 % (37.0-80.0); Platelet Count 340 K/mm3 (142-424); Red Blood Count 4.14 M/mm3 (4.20-5.40); Red Cell Distribution Width 15.3 % (11.5-17.5); White Blood Count 10.2 K/mm3 (4.8-10.8)
--- NOTE | 2021-05-18 00:21 | PC.NURSE ---
TO RAD WITH LAMBERTO,RADIOLOGY VIA
[2021-05-18 00:27] LABS: Chloride 108 mmol/L (98-107)
[2021-05-18 00:28] LABS: Potassium 3.8 mmoL/L (3.5-5.1); Sodium 136 mmol/L (136-145)
[2021-05-18 00:30] LABS: Alanine Aminotransferase 20 U/L (12-78); Alkaline Phosphatase 74 U/L (38-126); Amylase 67 U/L (30-110); Anion Gap 10.8 mEq/L (5-15); Aspartate Amino Transferase 24 U/L (14-36); Bilirubin,Total 0.3 mg/dl (0.2-1.3); Blood Urea Nitrogen 6 mg/dl (7-17); Calcium 9.2 mg/dl (8.4-10.2); Carbon Dioxide 21 mmol/L (22.0-30.0); Creatinine Clearance Estimated 310 mL/min (50-200); Estimated Glomerular Filt Rate 153 ml/min (>60); GFR (African American) 185 ML/MIN (>60); Glucose 130 mg/dl (74-100); Lipase 52 U/L (23-300)
[2021-05-18 00:31] LABS: Albumin Level 3.9 g/dl (3.5-5.0); Albumin/Globulin Ratio 1.3 (1.1-1.8); Total Protein,Serum 6.9 g/dl (6.3-8.2)
--- NOTE | 2021-05-18 00:52 | HMH.EDPREG ---
ED Disposition Clinical Impression: Round ligament pain Qualifiers: Weeks of gestation: 18 weeks Qualified Code(s): Z3A.18 - 18 weeks gestation of Disposition: Home, Self-Care Condition on Discharge: Good Instructions: DI for -- Discomforts and Remedies Additional Instructions: call ob dr for follow up Referrals: Camacho Hoffmann MD [Primary Care Provider] - Osvaldo Foster MD [Staff Physician] - - Critical Care Critical Care Time: No Attestation: On 05/17/21, the high probability of a clinically significant, sudden or life threatening deterioration of the following system(s) required my full and direct attention, intervention and personal management. The time I documented below is in addition to time spent performing reported procedures but includes the following listed in this critical care notation. Medical Decision Making - Medical Records Medical records reviewed: Yes: I reviewed the patient's medical records. - Bright Inquiry Pt receiving controlled substance: No Vital Signs: 05/18/21 00:04 Temperature 97.7 F Temperature Source Oral Pulse Rate [Right Brachial] 112 H Respiratory Rate 18 Blood Pressure [Right Arm] 158/80 H Blood Pressure Mean [Right Arm] 106 Blood Pressure Source [Right Arm] Automatic Cuff Blood Pressure Position [Right Arm] Sitting 02 Sat by Pulse Oximetry 98 Oxygen Delivery Method Room Air - Lab Data Lab results reviewed: Yes: I reviewed the patient's lab results. Lab Results 05/18/21 00:14: WBC 10.2, RBC 4.14 L, Hgb 11.9 L, Hct 37.2, MCV 89.9, MCH 28.7, MCHC 31.9, RDW 15.3, Plt Count 340, MPV 8.4, Neut % (Auto) 69.9, Lymph % (Auto) 22.8, [place] % (Auto) 4.7, Eos % (Auto) 2.3, Baso % (Auto) 0.3, Neut # (Auto) 7.1, Lymph # (Auto) 2.3, [place] # (Auto) 0.5, Eos # (Auto) 0.2, Baso # (Auto) 0.0 05/18/21 00:14: Sodium 136, Potassium 3.8, Chloride 108 H, Carbon Dioxide 21 L, Anion Gap 10.8, BUN 6 L, Creatinine 0.50 L, Estimated Creat Clear 310 H, Estimated GFR 153, Est GFR ( Amer) 185, Glucose 130 H, Calcium 9.2, Total Bilirubin 0.3, AST 24, ALT 20, Alkaline Phosphatase 74, Total Protein 6.9, Albumin 3.9, Globulin 3.0, Albumin/Globulin Ratio 1.3, Amylase 67, Lipase 52 05/18/21 00:53: Urine Color Yellow, Urine Appearance Clear, Urine pH 7.0, Ur Specific [place] 1.020, Urine Protein Negative, Urine Glucose (UA) Negative, Urine Ketones Trace, Urine Blood Negative, Urine Nitrate Negative, Urine Bilirubin Negative, Urine Urobilinogen 0.2, Ur Leukocyte Esterase Negative Result diagrams: 05/18/21 00:14 05/18/21 00:14 Orders (Tests/Meds): ORDERS Category Date Time Status Amylase Stat Lab 05/18/21 00:14 Results Beta HCG, Quant [HCG,Quantitative] Stat Lab 05/18/21 00:14 Results Comprehensive Metabolic Panel Stat Lab 05/18/21 00:14 Results Lipase Stat Lab 05/18/21 00:14 Results Urinalysis and Microscopic Stat Lab 05/18/21 00:53 Results US OB >= 14 weeks Fetus Stat Ultrasound 05/18/21 00:12 Taken - US Data US Images: Pelvis Findings Narrative: iup Medical Decision Narrative: with stable u/s and labs - possible round lig pain HPI - General Chief complaint: Abdominal Pain Stated complaint: Abdominal Pain, red spot on left arm Time Seen by Provider: 05/18/21 00:05 Mode of Arrival: Family Vehicle Source of Information: Patient, Medical Record Limitations: No Limitations Description of Symptoms (Recalled from ER Triage Doc. by RN): 18 wks preg presents with LLQ abd pain began 2 days ago. pt states she is concerned about the fetus as she hasn't felt any lightening/movement yet. no vaginal discharge/dysuria/bleeding noted or reported. no trauma. no fever. patient also has a small area of cellulitis she woke up with on her left antecubital space that she is wanting checked out. - History of Present Illness HPI Narrative: pt with abd pain and is with no vag bleeding - also has red area lt upper arm
[2021-05-18 00:59] LABS: Microscopic, Urine URINE MICROSCOPIC (MICROSCOPIC)
[2021-05-18 01:00] LABS: Appearance,Urine CLEAR (Clear); Bilirubin,Urine Negative (Negative); Blood, Urine Negative (Negative); Color,Urine YELLOW (Yellow); Glucose,Urine (UA) Negative (Negative); Ketones,Urine TRACE (Negative); Leukocyte Esterase,Urine Negative (Negative); Nitrate,Urine Negative (Negative); Protein,Urine Negative (Negative); Urobilinogen,Urine 0.2 EU/dl (0.2)
[2021-05-18 01:04] VITALS: BP 142/79; PULSE 98; RESP 16; TEMP 36.6; O2SAT 99
== END 2021-05-18 01:10 | disposition home or self-care (01) ==
PROVIDERS: Emergency Provider Emergency Medicine; PCP Emergency Medicine
DX: R10.32 Left lower quadrant pain (principal); Z3A.18 18 weeks gestation of pregnancy; I10 Essential (primary) hypertension
CPT/HCPCS: 76805; 80053; 81001; 82150; 83690; 84702; 85025; 87086; 99283

== ENCOUNTER → 2021-05-28 13:24 | Outpatient (CLI) | payer OTHER, SELFPAY ==
--- NOTE | 2021-05-28 13:25 | US_ITS ---
PROCEDURE: US OB >= 14 WEEKS FETUS CLINICAL INDICATION: 20 wk u/s COMPARISON: US OB >= 14 WEEKS FETUS from 05/18/2021 FINDINGS: There is a single live fetus in cephalic presentation. heart body motion noted. Cervix is closed measuring 3 cm. The placenta is anterior and grade 1. Complete survey performed and was unremarkable on the submitted images as in PACS. No discrete anomalies identified on survey imaging by technologist. Active fetus. Three-vessel cord with satisfactory umbilical cord insertion. 4- chamber heart noted. Survey of brain & ventricles Unremarkable. Face and neck survey unremarkable. Diaphragm and chest views unremarkable. Abdomen: Both kidneys noted and unremarkable. Stomach noted and satisfactory. Spine: Survey of the spine satisfactory with no anomalies identified nor imaged. Both arms and legs noted. Amniotic Fluid: Adequate. Maternal adnexa: No significant findings. Measurements: Average ultrasound age 20weeks 1day. Gestational Age 20weeks 1day Estimated due date by ultrasound age 0410/14/2021. Estimated weight 332g BPD = 20weeks 2days OFD = 20weeks 4days HC = 19weeks 5days AC = 20weeks 3days FL = 20weeks Growth Percentile= 68% Heart Rate = 144bpm Cerebellum = 20weeks Humerus = 21weeks 1day HC/AC is 1.13 CI is 0.77 FL/BPD is 0.68 FL/AC is 0.21 IMPRESSION: Live IUP at 20 weeks 1 day in cephalic presentation. No obvious anomalies. Please see above for detail. Dictated by: Pillo Nuñez MD 05/28/2021 17:28 Pillo Nuñez MD in [place] 05/28/2021 17:28
== END ==
PROVIDERS: PCP Emergency Medicine; Visit Provider Nurse Practitioner Obstetrics & Gynecology
DX: Z36.0 Encounter for antenatal screening for chromosomal anomalies (principal)
CPT/HCPCS: 76805

== ENCOUNTER 2021-06-08 09:47 | Emergency (ER) | payer OTHER, SELFPAY ==
[2021-06-08 11:19] LABS: UTC Strep Screen (Rapid) Negative (Negative)
[2021-06-08 11:20] LABS: Adenovirus,PCR Not Detected (NotDetected); Bordetella Pertussis Not Detected (NotDetected); Chlamydophila Pneumoniae, PCR Not Detected (NotDetected); Coronavirus 19, PCR Not Detected (NotDetected); Coronavirus 229E Not Detected (NotDetected); Coronavirus NL63 Not Detected (NotDetected); Coronavirus OC43 Not Detected (NotDetected); Coronovirus HKU1,PCR Not Detected (NotDetected); Human Metapneumovirus Not Detected (NotDetected); Influenza A, PCR Not Detected (NotDetected); Influenza AH1, 2009 Not Detected (NotDetected); Influenza AH1, PCR Not Detected (NotDetected); Influenza AH3,PCR Not Detected (NotDetected); Influenza B, PCR Not Detected (NotDetected); Mycoplasma Pneumoniae, PCR Not Detected (NotDetected); Parainfluenza 1, PCR Not Detected (NotDetected); Parainfluenza 2, PCR Not Detected (NotDetected); Parainfluenza 3, PCR Not Detected (NotDetected); Respiratory Syncytial Virus Not Detected (NotDetected); Rhinovirus/Enterovirus Not Detected (NotDetected)
[2021-06-08 11:31] VITALS: BP 135/84; PULSE 92; RESP 20; TEMP 36.6; O2SAT 97; BMI 40.0
[2021-06-08 11:38] VITALS: BP 135/84; PULSE 92; RESP 20; TEMP 36.6
--- NOTE | 2021-06-08 11:39 | HMH.EDUTC ---
[facility] [place]ression: Bronchitis Qualifiers: Weeks of gestation: 21 weeks Qualified Code(s): Z3A.21 - 21 weeks gestation of Disposition: Home, Self-Care Condition on Discharge: Good Instructions: DI for Acute Bronchitis Additional Instructions: Drink plenty of fluids. Take tylenol for pain or fever. Take the medications as directed. Follow up with your regular doctor. GO TO THE ER FOR ANY WORSENING SYMPTOMS Let Dr. Foster know that you are sick and follow any instructions that he gives you. Prescriptions: Guaifenesin/Dextromethorphan [Robitussin DM 200mg/20mg 10mL UDC] 5 ml PO Q6HP PRN 240 Days #240 ml PRN Reason: Cough Transmission Status: Received by [facility] Azithromycin [Z-Estrada 250mg Tab*] 250 mg PO UD DOSE PK #6 tab Transmission Status: Received by [facility] Referrals: Camacho Hoffmann MD [Primary Care Provider] - Forms: Work/School Release Time of Disposition: 11:53 Medical Decision Making - Medical Records Medical records reviewed: No: I reviewed the patient's medical records. - Bright Inquiry Pt receiving controlled substance: No Vital Signs: 06/08/21 11:31 06/08/21 11:38 Temperature 97.9 F 97.9 F Temperature Source Oral Pulse Rate 92 H Pulse Rate [Left] 92 H Respiratory Rate 20 20 Blood Pressure 135/84 Blood Pressure [Right Arm] 135/84 Blood Pressure Mean [Right Arm] 101 02 Sat by Pulse Oximetry 97 - Lab Data Lab Results 06/08/21 11:03: Strep Scn Rapid Clinic Negative 06/08/21 11:04: Chlamy pneumoniae PCR Not detected, Adenovirus (PCR) Not detected, B. pertussis DNA (PCR) Not detected, Coronavirus OC43 (PCR) Not detected, Coronavirus HKU1 (PCR) Not detected, Coronavirus 229E (PCR) Not detected, SARS-CoV-2 (PCR) Not detected, Coronavirus NL63 (PCR) Not detected, Human Metapneumovir PCR Not detected, Influenza A (H1) PCR Not detected, Influ A (H1N1/09) PCR Not detected, Influenza A (H3) PCR Not detected, Influenza Type A (PCR) Not detected, Influenza Type B (PCR) Not detected, M. pneumoniae (PCR) Not detected, Parainfluenza 1 (PCR) Not detected, Parainfluenza 2 (PCR) Not detected, Parainfluenza 3 (PCR) Not detected, Parainfluenza 4 (PCR) Detected A, RSV (PCR) Not detected, Entero/Rhino (PCR) Not detected Orders (Tests/Meds): ORDERS Category Date Time Status Strep Screen Confirmation Routine Micro 06/08/21 11:03 [place] [facility] [place] - General Stated complaint: cough, congestion Time Seen by Provider: 06/08/21 11:40 Mode of Arrival: Ambulatory Source of Information: Patient Limitations: No Limitations Description of Symptoms (Recalled from Triage Doc. by RN): pt c/o a cough and nasal congestion/drainage. x4 days. pt states she is 21w 4d . HEENT Symptoms (Recalled from RN notes): Yes (nasal drainage/congestion) Resp Symptoms (Recalled from RN notes): Yes (cough) Skin Symptoms (Recalled from RN notes): No MS Symptoms (Recalled from RN notes): No Functional Status (Recalled from RN notes): wnl - History of Present Illness Provider Complaint: She states that for the past 3 days she has had a cough, chest congestion and sinus congestion. She denies any fever. She is 21 weeks . - Related Data Home Medications Medication Instructions Recorded Confirmed prenat.vits,joann,[id number] 1 tab PO DAILY 04/22/21 05/28/21 Aspirin [Low Dose Aspirin EC] 81 mg PO DAILY 05/18/21 05/28/21 labetalol 200 mg tablet 200 mg PO tab 05/28/21 05/28/21 promethazine 12.5 mg tablet 12.5 mg PO tab 05/28/21 05/28/21 Previous Rx's Medication Instructions Recorded ferrous sulfate 325 mg (65 mg 325 mg PO DAILY #30 tab 05/20/21 iron) tablet labetalol 100 mg tablet 100 mg PO BID #60 tab 05/20/21 Azithromycin [Z-Estrada 250mg Tab*] 250 mg PO UD DOSE PK #6 tab 06/08/21 Guaifenesin/Dextromethorphan 5 ml PO Q6HP PRN 240 Days #240 ml 06/08/21 [Robitussin DM 200mg/20mg 10mL UDC] Allergies Cholo
[2021-06-08 13:52] LABS: Parainfluenza 4, PCR Detected (NotDetected)
== END 2021-06-08 12:06 | disposition home or self-care (01) ==
PROVIDERS: Emergency Provider Nurse Practitioner Family; PCP Emergency Medicine
DX: J20.9 Acute bronchitis, unspecified (principal); Z3A.21 21 weeks gestation of pregnancy
CPT/HCPCS: 87581; 87632; 87798; 87880; 99203; C9803; G0463; U0003; U0005

== ENCOUNTER 2021-07-09 12:47 | Outpatient (CLI) | payer OTHER, SELFPAY ==
[2021-07-09 12:56] VITALS: BMI 39.3
[2021-07-09 13:38] LABS: Basophils % 0.1 % (0.1-2.0); Eosinophils # 0.1 K/mm3 (0.0-0.4); Hematocrit 36.5 % (37.0-47.0); Hemoglobin 11.8 g/dL (12.2-16.2); Lymphocytes # 0.7 K/mm3 (0.7-4.5); Lymphocytes % 8.6 % (10-50); Mean Corpuscular HGB Conc 32.3 g/dL (31.8-35.4); Mean Corpuscular Hemoglobin 30.7 pg (27.0-31.2); Mean Corpuscular Volume 94.8 fl (81-99); Mean Platelet Volume 7.5 fl (7.4-10.4); Monocytes # 0.2 K/mm3 (0.1-1.0); Monocytes % 2.7 % (1.7-9.3); Neutrophils # 7.6 K/mm3 (1.8-7.8); Neutrophils % 87.6 % (37.0-80.0); Platelet Count 256 K/mm3 (142-424); Red Blood Count 3.85 M/mm3 (4.20-5.40); Red Cell Distribution Width 15.8 % (11.5-17.5); White Blood Count 8.6 K/mm3 (4.8-10.8)
[2021-07-09 13:39] VITALS: BP 117/63; PULSE 98; RESP 20; TEMP 36.9; O2SAT 97; BMI 39.3
[2021-07-09 13:42] LABS: MANUAL DIFFERENTIAL MANUAL DIFFERENTIAL (MANUAL DIFF)
[2021-07-09 13:42] LABS: Coronavirus 19, PCR Not Detected (NotDetected); Influenza A, PCR Not Detected (NotDetected); Influenza B, PCR Not Detected (NotDetected)
[2021-07-09 13:49] LABS: Chloride 108 mmol/L (98-107); Potassium 3.5 mmoL/L (3.5-5.1); Sodium 136 mmol/L (136-145)
[2021-07-09 13:51] LABS: Alanine Aminotransferase 21 U/L (12-78); Alkaline Phosphatase 72 U/L (38-126); Aspartate Amino Transferase 23 U/L (14-36); Bilirubin,Total 0.6 mg/dl (0.2-1.3); Blood Urea Nitrogen 4 mg/dl (7-17); Creatinine Clearance Estimated 315 mL/min (50-200); Estimated Glomerular Filt Rate 153 ml/min (>60); GFR (African American) 185 ML/MIN (>60)
[2021-07-09 13:52] LABS: Albumin Level 3.6 g/dl (3.5-5.0); Albumin/Globulin Ratio 1.2 (1.1-1.8); Anion Gap 10.5 mEq/L (5-15); Calcium 8.8 mg/dl (8.4-10.2); Carbon Dioxide 21 mmol/L (22.0-30.0); Globulin 2.9 g/dL (1.3-3.2); Glucose 106 mg/dl (74-100); Total Protein,Serum 6.5 g/dl (6.3-8.2)
[2021-07-09 14:06] LABS: Microscopic, Urine URINE MICROSCOPIC (MICROSCOPIC)
[2021-07-09 14:11] LABS: Lymphocytes % 15 % (10-50); Monocytes % 1 % (2-9); Neutrophils % 84 % (42-76); Platelet Estimate Normal; RBC Morphology Normal; Total Cells Counted 100
[2021-07-09 14:23] LABS: Appearance,Urine CLEAR (Clear); Bilirubin,Urine Negative (Negative); Blood, Urine Negative (Negative); Color,Urine YELLOW (Yellow); Glucose,Urine (UA) Negative (Negative); Ketones,Urine Negative (Negative); Leukocyte Esterase,Urine Negative (Negative); Nitrate,Urine Negative (Negative); Protein,Urine Negative (Negative); Specific Gravity, Urine 1.015 (1.005-1.030)
[2021-07-09 14:34] LABS: WBC,Urine Occasional #/hpf (0-3)
[2021-07-09 14:36] LABS: Barbiturates Screen,Urine Negative ng/ml (<200)
[2021-07-09 14:37] LABS: Benzodiazepines Screen,Urine Negative ng/ml (<200)
[2021-07-09 14:38] LABS: Cannabinoid Screen,Urine Negative ng/ml (<50)
[2021-07-09 14:39] LABS: Cocaine Screen,Urine Negative ng/ml (<300)
[2021-07-09 14:40] LABS: Methadone Screen,Urine Negative ng/ml (<300); Opiate Screen,Urine Negative ng/ml (<300)
[2021-07-09 14:43] LABS: Amphetamine/Metha Screen,Urine Negative ng/ml (<1000)
[2021-07-09 14:49] LABS: Phencyclidine Screen,Urine Negative ng/ml (<25)
== END 2021-07-09 15:00 | disposition home or self-care (01) ==
LOC: OBOUT 12:48 → OB 12:48
PROVIDERS: PCP Emergency Medicine; Visit Provider Nurse Practitioner Obstetrics & Gynecology
DX: O26.892 Other specified pregnancy related conditions, second trimester (principal); Z3A.25 25 weeks gestation of pregnancy; R51.9 Headache, unspecified; R11.2 Nausea with vomiting, unspecified
CPT/HCPCS: 59025; 80053; 80305; 81001; 85007; 85025; 96360; 96365; 96367; C9803; G0463; J2405; U0003; U0005

== ENCOUNTER → 2021-07-23 23:37 | Outpatient (CLI) | payer OTHER, SELFPAY ==
[2021-07-24 00:01] LABS: Influenza A, PCR Not Detected (NotDetected); Influenza B, PCR Not Detected (NotDetected)
[2021-07-24 00:22] LABS: Coronavirus 19, PCR Detected (NotDetected)
== END ==
PROVIDERS: PCP Emergency Medicine; Visit Provider Nurse Practitioner Obstetrics & Gynecology
DX: U07.1 COVID-19 (principal)
CPT/HCPCS: C9803; U0003; U0005

== ENCOUNTER → 2021-07-30 15:59 | Outpatient (CLI) | payer OTHER, SELFPAY | PROVIDERS: Visit Provider Nurse Practitioner | DX: U07.1 COVID-19 (principal) | CPT/HCPCS: C9803; U0003; U0005 ==

== ENCOUNTER 2021-07-31 13:55 | Emergency (ER) | payer OTHER, SELFPAY ==
[2021-07-31 13:56] VITALS: BP 149/80; PULSE 98; RESP 16; TEMP 36.7; O2SAT 98; BMI 43.4
[2021-07-31 14:39] VITALS: BP 110/65
[2021-07-31 14:49] LABS: Microscopic, Urine URINE MICROSCOPIC (MICROSCOPIC)
[2021-07-31 14:50] LABS: Appearance,Urine CLEAR (Clear); Bilirubin,Urine Negative (Negative); Blood, Urine Negative (Negative); Color,Urine YELLOW (Yellow); Glucose,Urine (UA) Negative (Negative); Ketones,Urine Negative (Negative); Leukocyte Esterase,Urine Negative (Negative); Nitrate,Urine Negative (Negative); Protein,Urine Negative (Negative); Specific Gravity, Urine 1.015 (1.005-1.030); Urobilinogen,Urine 0.2 EU/dl (0.2)
[2021-07-31 15:00] VITALS: BP 136/76
--- NOTE | 2021-07-31 15:08 | HMH.EDGENADL ---
ED Disposition Clinical Impression: Dehydration, Third trimester fetus Disposition: Home, Self-Care Condition on Discharge: Good Instructions: DI for Resolved Contractions, DI for Dehydration -- Adult Referrals: Camacho Hoffmann MD [Primary Care Provider] - Time of Disposition: 16:30 - Critical Care Critical Care Time: No Attestation: On 07/31/21, the high probability of a clinically significant, sudden or life threatening deterioration of the following system(s) required my full and direct attention, intervention and personal management. The time I documented below is in addition to time spent performing reported procedures but includes the following listed in this critical care notation. Medical Decision Making - Medical Records Medical records reviewed: Yes: I reviewed the patient's medical records. - Bright Inquiry Pt receiving controlled substance: No Vital Signs: 07/31/21 13:56 07/31/21 14:39 07/31/21 15:00 Temperature 98.1 F Temperature Source Oral Pulse Rate Pulse Rate [Right Radial] 98 H Respiratory Rate 16 Blood Pressure 110/65 136/76 Blood Pressure [Right Arm] 149/80 H Blood Pressure Mean 84 92 Blood Pressure Mean [Right Arm] 103 Blood Pressure Source [Right Arm] Automatic Cuff Blood Pressure Position [Right Arm] Sitting 02 Sat by Pulse Oximetry 98 Oxygen Delivery Method Room Air 07/31/21 15:31 Temperature Temperature Source Pulse Rate 80 Pulse Rate [Right Radial] Respiratory Rate Blood Pressure 124/70 Blood Pressure [Right Arm] Blood Pressure Mean 91 Blood Pressure Mean [Right Arm] Blood Pressure Source [Right Arm] Blood Pressure Position [Right Arm] 02 Sat by Pulse Oximetry 98 Oxygen Delivery Method - Lab Data Lab results reviewed: Yes: I reviewed the patient's lab results. Lab Results 07/31/21 14:40: Urine Color Yellow, Urine Appearance Clear, Urine pH 7.0, Ur Specific [place] 1.015, Urine Protein Negative, Urine Glucose (UA) Negative, Urine Ketones Negative, Urine Blood Negative, Urine Nitrate Negative, Urine Bilirubin Negative, Urine Urobilinogen 0.2, Ur Leukocyte Esterase Negative, Urine RBC None, Urine WBC 3-5, Ur Squamous Epith Cells 3-5, Urine Bacteria None 07/31/21 15:45: WBC 9.6, RBC 3.74 L, Hgb 11.7 L, Hct 35.8 L, MCV 95.9, MCH 31.2, MCHC 32.6, RDW 15.0, Plt Count 264, MPV 7.5, Neut % (Auto) 74.4, Lymph % (Auto) 14.4, [place] % (Auto) 6.5, Eos % (Auto) 1.1, Baso % (Auto) 3.7 H, Neut # (Auto) 7.2, Lymph # (Auto) 1.4, [place] # (Auto) 0.6, Eos # (Auto) 0.1, Baso # (Auto) 0.4 H 07/31/21 15:45: Sodium 134 L, Potassium 4.1, Chloride 105, Carbon Dioxide 24, Anion Gap 9.1, BUN 3 L, Creatinine 0.40 L, Estimated Creat Clear 187, Estimated GFR 196, Est GFR ( Amer) 237, Glucose 86, Calcium 9.5, Total Bilirubin 0.5, AST 18, ALT 14, Alkaline Phosphatase 70, Total Protein 6.4, Albumin 3.6, Globulin 2.8, Albumin/Globulin Ratio 1.3 Result diagrams: 07/31/21 15:45 07/31/21 15:45 Orders (Tests/Meds): ED MEDICATIONS Discontinued Medications Generic Name Dose Route Start Last Admin Trade Name Freq PRN Reason Stop Dose Admin Sodium Chloride 1,000 mls @ 999 mls/hr 07/31/21 14:45 07/31/21 15:48 Sod Chlor 0.9% 1000ml Bag IV 07/31/21 15:45 999 mls/hr .Q1H1M DANIA Administration Medical Decision Narrative: 26-year-old female who presents emergency department with chief complaint of decreased movement, as well as subjective feelings of dehydration. Patient is currently COVID-positive, and has been eating and drinking less, but otherwise in good health. On arrival, patient is hypertensive with a systolic of 140. Recheck showed a systolic of 110. Bedside ultrasound was performed which showed a heart rate of 132, a modest amount of movement, and MAVIS was evaluated and found to be 17.5 with single deepest pocket of 4.8 cm. At this time, we will obtain basic labs including CBC, CMP, and urinalysis. Patient will ge
[2021-07-31 15:31] VITALS: BP 124/70; PULSE 80; O2SAT 98
[2021-07-31 16:11] LABS: Alanine Aminotransferase 14 U/L (12-78); Albumin Level 3.6 g/dl (3.5-5.0); Albumin/Globulin Ratio 1.3 (1.1-1.8); Alkaline Phosphatase 70 U/L (38-126); Anion Gap 9.1 mEq/L (5-15); Aspartate Amino Transferase 18 U/L (14-36); Bilirubin,Total 0.5 mg/dl (0.2-1.3); Blood Urea Nitrogen 3 mg/dl (7-17); Calcium 9.5 mg/dl (8.4-10.2); Carbon Dioxide 24 mmol/L (22.0-30.0); Chloride 105 mmol/L (98-107); Creatinine Clearance Estimated 187 mL/min (50-200); Estimated Glomerular Filt Rate 196 ml/min (>60); GFR (African American) 237 ML/MIN (>60); Globulin 2.8 g/dL (1.3-3.2); Glucose 86 mg/dl (74-100); Potassium 4.1 mmoL/L (3.5-5.1); Sodium 134 mmol/L (136-145); Total Protein,Serum 6.4 g/dl (6.3-8.2)
[2021-07-31 16:12] LABS: Basophils # 0.4 K/mm3 (0-0.2); Basophils % 3.7 % (0.1-2.0); Eosinophils # 0.1 K/mm3 (0.0-0.4); Eosinophils % 1.1 % (0.1-12.0); Hematocrit 35.8 % (37.0-47.0); Hemoglobin 11.7 g/dL (12.2-16.2); Lymphocytes # 1.4 K/mm3 (0.7-4.5); Lymphocytes % 14.4 % (10-50); Mean Corpuscular HGB Conc 32.6 g/dL (31.8-35.4); Mean Corpuscular Hemoglobin 31.2 pg (27.0-31.2); Mean Corpuscular Volume 95.9 fl (81-99); Mean Platelet Volume 7.5 fl (7.4-10.4); Monocytes # 0.6 K/mm3 (0.1-1.0); Monocytes % 6.5 % (1.7-9.3); Neutrophils # 7.2 K/mm3 (1.8-7.8); Neutrophils % 74.4 % (37.0-80.0); Platelet Count 264 K/mm3 (142-424); Red Blood Count 3.74 M/mm3 (4.20-5.40); White Blood Count 9.6 K/mm3 (4.8-10.8)
[2021-07-31 17:05] VITALS: BP 131/73; PULSE 87; RESP 14; TEMP 36.8; O2SAT 99
== END 2021-07-31 17:06 | disposition home or self-care (01) ==
PROVIDERS: Emergency Provider Emergency Medicine; PCP Emergency Medicine
DX: E86.0 Dehydration (principal); U07.1 COVID-19; Z3A.29 29 weeks gestation of pregnancy; I10 Essential (primary) hypertension; F17.210 Nicotine dependence, cigarettes, uncomplicated
CPT/HCPCS: 80053; 81001; 85025; 96365; 99283

== ENCOUNTER 2021-08-17 11:33 | Emergency (ER) | payer OTHER, SELFPAY ==
--- NOTE | 2021-08-17 12:44 | HMH.EDUTC ---
[facility] [place] Clinical Impression: Viral syndrome, Exposure to COVID-19 virus Qualifiers: Weeks of gestation: 28 weeks Qualified Code(s): Z3A.28 - 28 weeks gestation of Disposition: Home, Self-Care Condition on Discharge: Good Instructions: DI for Viral Syndrome, DI for COVID-19 (Suspected or Confirmed ), Preventing the Spread of Coronavirus Discharge Instructions Additional Instructions: Drink plenty of fluids. Take tylenol for pain or fever. 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 Follow up with your regular doctor. GO TO THE ER FOR ANY WORSENING SYMPTOMS Quarantine until you know the results of your covid-19 test. Notify your school or workplace of your results and follow their instructions regarding return to work/school. Referrals: Camacho Hoffmann MD [Primary Care Provider] - Time of Disposition: 13:07 Medical Decision Making - Medical Records Medical records reviewed: No: I reviewed the patient's medical records. - Bright Inquiry Pt receiving controlled substance: No Vital Signs: 08/17/21 12:46 08/17/21 13:27 Temperature 98.0 F 98.0 F Temperature Source Oral Oral Pulse Rate 97 H Pulse Rate [Right Brachial] 97 H Respiratory Rate 18 18 Blood Pressure 146/71 H Blood Pressure [Right Arm] 146/71 H Blood Pressure Mean [Right Arm] 96 Blood Pressure Source Automatic Cuff Blood Pressure Source [Right Arm] Automatic Cuff 02 Sat by Pulse Oximetry 96 Oxygen Delivery Method Room Air Room Air - Lab Data Lab results reviewed: Yes: I reviewed the patient's lab results. Lab Results 08/17/21 12:35: Group A Strep Rapid Negative 08/17/21 12:52: Influenza Type A Ag Negative, Influenza Type B Ag Negative Orders (Tests/Meds): ORDERS Category Date Time Status Strep Screen Confirmation Stat Micro 08/17/21 12:35 Received [facility] [place] HPI - General Stated complaint: sore throat,headache,SOA Time Seen by Provider: 08/17/21 12:44 - History of Present Illness Provider Complaint: She c/o headache, sinus congestion, bilateral ear pain and pressure, cough, and chest congestion for the past 2 days. She states that both her daughter and her mother have recently had influenza A. She has not had a flu shot. She has not been vaccinated against covid-19, but she did have covid-19 about 5 months ago. - Related Data Home Medications Medication Instructions Recorded Confirmed prenat.vits,joann,caq-qslv-jowmm 1 tab PO DAILY 04/22/21 08/13/21 promethazine 12.5 mg tablet 12.5 mg PO tab 05/28/21 08/13/21 aspirin 81 mg tablet,delayed 81 mg PO tab 07/23/21 08/13/21 release dextromethorphan-guaifenesin 10 5 ml PO ml 08/06/21 08/13/21 mg-100 mg/5 mL oral syrup labetalol 200 mg tablet 200 mg PO tab 08/13/21 08/13/21 Previous Rx's Medication Instructions Recorded ferrous sulfate 325 mg (65 mg 325 mg PO DAILY #30 tab 05/20/21 iron) tablet ondansetron 4 mg disintegrating 4 mg PO Q6H PRN #30 tab 07/09/21 tablet promethazine 25 mg tablet 25 mg PO Q4-6H PRN #30 tab 07/09/21 nifedipine 60 mg tablet,extended 60 mg PO DAILY #30 tab 07/23/21 release 24 hr labetalol 100 mg tablet 100 mg PO BID #60 tab 08/06/21 Allergies Allergy/AdvReac Type Severity Reaction Status Date / Time adhesive [ADHESIVE] Allergy Unknown SWELLING Verified 08/13/21 10:24 [facility] [place] History - Hepatitis A Screen Attestation statement:: This patient has been screened for Hepatitis A risk factors. I have reviewed the patient's past medical history: Yes Medical History: Reports:: Hypertension Denies:: Cancer, Diabetes Mellitus Type 1, Diabetes Mellitus Type 2, MRSA Laterality Cases: Bilateral: Tonsillectomy, Other Other Surgeries: Yes: No Previous Surgery. No: Amputation: No Fractures: No - Social History Smoking Status: Current every day smoker Tobacco Type: cigarettes # Packs/Day (cigarettes): 1 Alcohol Intake: never Alcohol Intake Frequency:: other Subs
[2021-08-17 12:46] VITALS: BP 146/71; PULSE 97; RESP 18; TEMP 36.7; O2SAT 96; BMI 41.1
[2021-08-17 13:02] LABS: Strep Scrn Group A (Rapid) Negative (Negative)
[2021-08-17 13:06] LABS: UTC Influenza A Antigen Negative (Negative); UTC Influenza B Antigen Negative (Negative)
[2021-08-17 13:27] VITALS: BP 146/71; PULSE 97; RESP 18; TEMP 36.7; O2SAT 96
== END 2021-08-17 13:15 | disposition home or self-care (01) ==
PROVIDERS: Emergency Provider Nurse Practitioner Family; PCP Emergency Medicine
DX: O98.512 Other viral diseases complicating pregnancy, second trimester (principal); Z3A.28 28 weeks gestation of pregnancy; B34.9 Viral infection, unspecified; Z20.822 Contact with and (suspected) exposure to COVID-19
CPT/HCPCS: 87430; 87804; 99202; C9803; G0463; U0003; U0005

== ENCOUNTER 2021-08-18 20:07 | Outpatient (CLI) | payer OTHER, SELFPAY ==
[2021-08-18 20:45] VITALS: BP 137/70; PULSE 94; RESP 20; TEMP 37.4; O2SAT 100; BMI 41.1
[2021-08-18 21:10] LABS: Microscopic, Urine URINE MICROSCOPIC (MICROSCOPIC)
[2021-08-18 21:12] LABS: Appearance,Urine CLEAR (Clear); Bilirubin,Urine Negative (Negative); Blood, Urine TRACE-I (Negative); Color,Urine YELLOW (Yellow); Glucose,Urine (UA) Negative (Negative); Ketones,Urine Negative (Negative); Leukocyte Esterase,Urine Negative (Negative); Nitrate,Urine Negative (Negative); Protein,Urine Negative (Negative); Specific Gravity, Urine 1.015 (1.005-1.030); Urobilinogen,Urine 0.2 EU/dl (0.2)
[2021-08-18 21:23] LABS: Amphetamine/Metha Screen,Urine Negative ng/ml (<1000)
[2021-08-18 21:24] LABS: Barbiturates Screen,Urine Negative ng/ml (<200)
[2021-08-18 21:25] LABS: Benzodiazepines Screen,Urine Negative ng/ml (<200); Cannabinoid Screen,Urine Negative ng/ml (<50)
[2021-08-18 21:26] LABS: Bacteria,Urine 2+ /lpf; Cocaine Screen,Urine Negative ng/ml (<300); Methadone Screen,Urine Negative ng/ml (<300); Mucus,Urine 1+ /lpf
[2021-08-18 21:27] LABS: Opiate Screen,Urine Negative ng/ml (<300)
[2021-08-18 21:28] LABS: Phencyclidine Screen,Urine Negative ng/ml (<25)
[2021-08-18 21:43] LABS: Fetal Fibronectin (Rapid) Negative (Negative)
== END 2021-08-18 21:30 | disposition home or self-care (01) ==
LOC: OBOUT 20:08 → OB 20:10
PROVIDERS: PCP Emergency Medicine; Visit Provider Obstetrics & Gynecology
DX: O60.03 Preterm labor without delivery, third trimester (principal); Z3A.31 31 weeks gestation of pregnancy
CPT/HCPCS: 59025; 80305; 81001; 82731; 87086; G0463

== ENCOUNTER → 2021-09-01 12:02 | Outpatient (CLI) | payer OTHER, SELFPAY ==
[2021-09-01 12:45] LABS: Basophils % 0.4 % (0.1-2.0); Eosinophils # 0.1 K/mm3 (0.0-0.4); Eosinophils % 1.2 % (0.1-12.0); Hematocrit 32.9 % (37.0-47.0); Hemoglobin 10.9 g/dL (12.2-16.2); Lymphocytes # 1.5 K/mm3 (0.7-4.5); Lymphocytes % 19.7 % (10-50); Mean Corpuscular HGB Conc 33.1 g/dL (31.8-35.4); Mean Corpuscular Hemoglobin 31.4 pg (27.0-31.2); Mean Platelet Volume 8.3 fl (7.4-10.4); Monocytes # 0.6 K/mm3 (0.1-1.0); Monocytes % 7.4 % (1.7-9.3); Neutrophils # 5.4 K/mm3 (1.8-7.8); Neutrophils % 71.5 % (37.0-80.0); Platelet Count 301 K/mm3 (142-424); Red Blood Count 3.46 M/mm3 (4.20-5.40); Red Cell Distribution Width 14.2 % (11.5-17.5); White Blood Count 7.5 K/mm3 (4.8-10.8)
[2021-09-01 12:52] LABS: D-Dimer 1.24 ug/mL (0.0-0.5)
[2021-09-01 12:53] LABS: Activated Partial Thrombo Time 27.9 seconds (22.8-30.6); INR 0.94 (0.9-1.1); Prothrombin Time 10.7 seconds (10.1-12.5)
[2021-09-01 14:19] LABS: NT Pro Brain Natriuretic Pep. 110 pg/mL (0-125)
[2021-09-01 14:35] LABS: Fibrinogen 407 mg/dL (229.9-363.5)
[2021-09-01 18:35] LABS: Alanine Aminotransferase 15 U/L (12-78); Anion Gap 10.7 mEq/L (5-15); Aspartate Amino Transferase 17 U/L (14-36); Blood Urea Nitrogen 3 mg/dl (7-17); Calcium 8.5 mg/dl (8.4-10.2); Carbon Dioxide 21 mmol/L (22.0-30.0); Chloride 110 mmol/L (98-107); Estimated Glomerular Filt Rate 152 ml/min (>60); GFR (African American) 183 ML/MIN (>60); Glucose 83 mg/dl (74-100); Potassium 3.7 mmoL/L (3.5-5.1); Sodium 138 mmol/L (136-145); Uric Acid 3.2 mg/dl (2.5-6.2)
== END ==
PROVIDERS: Visit Provider Nurse Practitioner Obstetrics & Gynecology
DX: O10.919 Unspecified pre-existing hypertension complicating pregnancy, unspecified trimester (principal); O13.9 Gestational [pregnancy-induced] hypertension without significant proteinuria, unspecified trimester
CPT/HCPCS: 36415; 80048; 83880; 84450; 84460; 84550; 85025; 85378; 85384; 85610; 85730

== ENCOUNTER 2021-09-02 19:40 | Outpatient (CLI) | payer OTHER, SELFPAY ==
[2021-09-02 19:51] VITALS: BMI 40.7
[2021-09-02 19:55] VITALS: BP 153/73; PULSE 108; RESP 20; TEMP 37.7; O2SAT 100; BMI 40.7
[2021-09-02 19:59] LABS: Microscopic, Urine URINE MICROSCOPIC (MICROSCOPIC)
[2021-09-02 20:02] LABS: Appearance,Urine SL CLOUDY (Clear); Bilirubin,Urine Negative (Negative); Blood, Urine 1+ (Negative); Color,Urine YELLOW (Yellow); Glucose,Urine (UA) Negative (Negative); Ketones,Urine Negative (Negative); Leukocyte Esterase,Urine Negative (Negative); Nitrate,Urine Negative (Negative); Protein,Urine Negative (Negative)
[2021-09-02 20:17] LABS: Bacteria,Urine 2+ /lpf; WBC,Urine 20-50 #/hpf (0-3)
[2021-09-02 20:20] LABS: Benzodiazepines Screen,Urine Negative ng/ml (<200)
[2021-09-02 20:21] LABS: Amphetamine/Metha Screen,Urine Negative ng/ml (<1000)
[2021-09-02 20:22] LABS: Barbiturates Screen,Urine Negative ng/ml (<200); Cannabinoid Screen,Urine Negative ng/ml (<50)
[2021-09-02 20:23] LABS: Cocaine Screen,Urine Negative ng/ml (<300); Methadone Screen,Urine Negative ng/ml (<300)
[2021-09-02 20:24] LABS: Opiate Screen,Urine Negative ng/ml (<300)
[2021-09-02 20:25] LABS: Phencyclidine Screen,Urine Negative ng/ml (<25)
== END 2021-09-02 21:45 | disposition home or self-care (01) ==
LOC: OBOUT 19:42 → OB 19:43
PROVIDERS: PCP Nurse Practitioner Obstetrics & Gynecology; Visit Provider Nurse Practitioner Obstetrics & Gynecology
DX: O26.893 Other specified pregnancy related conditions, third trimester (principal); Z3A.33 33 weeks gestation of pregnancy; R10.2 Pelvic and perineal pain
CPT/HCPCS: 59025; 80305; 81001; 87086; G0463

== ENCOUNTER 2021-09-04 08:28 | Outpatient (CLI) | payer OTHER, SELFPAY ==
--- NOTE | 2021-09-04 08:28 | US_ITS ---
FINAL REPORT CLINICAL HISTORY: Measuring larger (LGA) FINDINGS: There is a single live intrauterine gestation. Presentation is cephalic. Placenta is anterior grade 1. Cardiac activity is confirmed at 124 bpm. Fetus is active. MAVIS: 16 MEASUREMENTS: ULTRASOUND AGE: 36 weeks 0 days. GESTATION AGE: 33 weeks 6 days. ESTIMATED WEIGHT: 2808 g GROWTH PERCENTILE: 94% BPD: 8.98 cm consistent with 36 weeks 3 days. OFD: 10.76 cm consistent with 34 weeks 3 days. HC: 31.13 cm consistent with 34 weeks 6 days. AC: 32.03 cm consistent with 36 weeks 0 days. FL: 7.07 cm consistent with 36 weeks 2 days. HEART RATE: 124 beats per minute HC/AC: 0.97 CI: 83% FL/BPD: 79% FL/AC: 22% BREATHIN/2 MOVEMENT: 2/2 TONE: 2/2 FLUID VOLUME: 2/2 BPP SCORE: 8/8 IMPRESSION: Single living IUP with an ultrasound age of 36 weeks 0 days. BPP SCORE: 8/8 Reviewed, Interpreted and Dictated by Chace Graff MD Transcribed by Pinky Lima Authenticated by Chace Graff MD on 09/04/2021 12:35:40 PM [facility]
[2021-09-04 09:34] VITALS: BP 132/69; PULSE 91; RESP 16; TEMP 36.4; O2SAT 95; BMI 40.7
[2021-09-04 09:41] LABS: Microscopic, Urine URINE MICROSCOPIC (MICROSCOPIC)
[2021-09-04 09:57] LABS: Appearance,Urine CLEAR (Clear); Bilirubin,Urine Negative (Negative); Blood, Urine TRACE-I (Negative); Color,Urine YELLOW (Yellow); Glucose,Urine (UA) Negative (Negative); Ketones,Urine Negative (Negative); Leukocyte Esterase,Urine TRACE (Negative); Nitrate,Urine Negative (Negative); Protein,Urine Negative (Negative); Urobilinogen,Urine 0.2 EU/dl (0.2)
[2021-09-04 10:08] LABS: Benzodiazepines Screen,Urine Negative ng/ml (<200)
[2021-09-04 10:09] LABS: Amphetamine/Metha Screen,Urine Negative ng/ml (<1000)
[2021-09-04 10:10] LABS: Barbiturates Screen,Urine Negative ng/ml (<200); Cannabinoid Screen,Urine Negative ng/ml (<50)
[2021-09-04 10:11] LABS: Cocaine Screen,Urine Negative ng/ml (<300); Methadone Screen,Urine Negative ng/ml (<300)
[2021-09-04 10:12] LABS: Opiate Screen,Urine Negative ng/ml (<300)
[2021-09-04 10:13] LABS: Phencyclidine Screen,Urine Negative ng/ml (<25)
== END 2021-09-04 10:55 | disposition home or self-care (01) ==
LOC: RAD 08:28 → OBOUT 09:28 → OB 09:28
PROVIDERS: PCP Emergency Medicine; Visit Provider Nurse Practitioner Obstetrics & Gynecology
DX: O36.60X0 Maternal care for excessive fetal growth, unspecified trimester, not applicable or unspecified (principal); Z3A.34 34 weeks gestation of pregnancy
CPT/HCPCS: 59025; 76816; 76819; 80305; 81001; G0463

== ENCOUNTER 2021-09-12 22:36 | Outpatient (CLI) | payer OTHER, SELFPAY ==
[2021-09-12 22:42] VITALS: BMI 40.2
[2021-09-12 23:07] LABS: Microscopic, Urine URINE MICROSCOPIC (MICROSCOPIC)
[2021-09-12 23:15] LABS: Appearance,Urine CLEAR (Clear); Bilirubin,Urine Negative (Negative); Blood, Urine 2+ (Negative); Color,Urine YELLOW (Yellow); Glucose,Urine (UA) Negative (Negative); Ketones,Urine Negative (Negative); Leukocyte Esterase,Urine Negative (Negative); Nitrate,Urine Negative (Negative); Protein,Urine Negative (Negative); Urobilinogen,Urine 0.2 EU/dl (0.2)
[2021-09-12 23:20] VITALS: BP 149/84; PULSE 95; RESP 18; TEMP 36.8; O2SAT 96; BMI 40.2
[2021-09-12 23:25] LABS: Benzodiazepines Screen,Urine Negative ng/ml (<200)
[2021-09-12 23:26] LABS: Amphetamine/Metha Screen,Urine Negative ng/ml (<1000); Barbiturates Screen,Urine Negative ng/ml (<200)
[2021-09-12 23:27] LABS: Cannabinoid Screen,Urine Negative ng/ml (<50)
[2021-09-12 23:28] LABS: Cocaine Screen,Urine Negative ng/ml (<300); Methadone Screen,Urine Negative ng/ml (<300)
[2021-09-12 23:29] LABS: Opiate Screen,Urine Negative ng/ml (<300)
[2021-09-12 23:30] LABS: Phencyclidine Screen,Urine Negative ng/ml (<25)
== END 2021-09-13 00:45 | disposition home or self-care (01) ==
LOC: OBOUT 22:39 → OB 22:40
PROVIDERS: PCP Emergency Medicine; Visit Provider Obstetrics & Gynecology
DX: O60.03 Preterm labor without delivery, third trimester (principal); Z3A.35 35 weeks gestation of pregnancy
CPT/HCPCS: 59025; 80305; 81001; 96365; G0463

== ENCOUNTER → 2021-09-14 12:19 | Outpatient (CLI) | payer OTHER, SELFPAY ==
[2021-09-14 13:21] LABS: Basophils # 0.1 K/mm3 (0-0.2); Basophils % 0.8 % (0.1-2.0); Eosinophils # 0.2 K/mm3 (0.0-0.4); Eosinophils % 1.7 % (0.1-12.0); Hematocrit 32.4 % (37.0-47.0); Hemoglobin 10.2 g/dL (12.2-16.2); Lymphocytes # 1.5 K/mm3 (0.7-4.5); Mean Corpuscular HGB Conc 31.6 g/dL (31.8-35.4); Mean Corpuscular Hemoglobin 30.6 pg (27.0-31.2); Mean Platelet Volume 7.8 fl (7.4-10.4); Monocytes # 0.5 K/mm3 (0.1-1.0); Monocytes % 5.5 % (1.7-9.3); Neutrophils # 6.3 K/mm3 (1.8-7.8); Platelet Count 291 K/mm3 (142-424); Red Blood Count 3.34 M/mm3 (4.20-5.40); Red Cell Distribution Width 14.3 % (11.5-17.5); White Blood Count 8.5 K/mm3 (4.8-10.8)
[2021-09-14 13:36] LABS: D-Dimer 1.32 ug/mL (0.0-0.5)
[2021-09-14 13:49] LABS: Alanine Aminotransferase 18 U/L (12-78); Anion Gap 11.4 mEq/L (5-15); Aspartate Amino Transferase 17 U/L (14-36); Blood Urea Nitrogen 3 mg/dl (7-17); Calcium 8.7 mg/dl (8.4-10.2); Carbon Dioxide 21 mmol/L (22.0-30.0); Chloride 108 mmol/L (98-107); Estimated Glomerular Filt Rate 152 ml/min (>60); GFR (African American) 183 ML/MIN (>60); Glucose 103 mg/dl (74-100); Potassium 3.4 mmoL/L (3.5-5.1); Sodium 137 mmol/L (136-145); Uric Acid 3.5 mg/dl (2.5-6.2)
[2021-09-14 14:06] LABS: Activated Partial Thrombo Time 28.5 seconds (22.8-30.6); Fibrinogen 472 mg/dL (229.9-363.5); INR 0.93 (0.9-1.1); Prothrombin Time 10.6 seconds (10.1-12.5)
== END ==
PROVIDERS: Visit Provider Nurse Practitioner Obstetrics & Gynecology
DX: O13.9 Gestational [pregnancy-induced] hypertension without significant proteinuria, unspecified trimester (principal)
CPT/HCPCS: 36415; 80048; 84450; 84460; 84550; 85025; 85378; 85384; 85610; 85730

== ENCOUNTER → 2021-09-16 08:08 | Outpatient (CLI) | payer OTHER, SELFPAY ==
[2021-09-16 17:26] LABS: Total Protein 24 Hour,Urine 475 mg/24 hr (40-90); Total Volume,Urine 2500 mL (600-1600)
== END ==
PROVIDERS: Visit Provider Nurse Practitioner Obstetrics & Gynecology
DX: Z34.90 Encounter for supervision of normal pregnancy, unspecified, unspecified trimester (principal)
CPT/HCPCS: 84155

== ENCOUNTER 2021-09-17 16:56 | Outpatient (CLI) | payer OTHER, SELFPAY ==
[2021-09-17 17:41] VITALS: BMI 41.0
[2021-09-17 18:08] LABS: Microscopic, Urine URINE MICROSCOPIC (MICROSCOPIC)
[2021-09-17 18:13] LABS: Appearance,Urine CLEAR (Clear); Bilirubin,Urine Negative (Negative); Blood, Urine TRACE-I (Negative); Color,Urine YELLOW (Yellow); Glucose,Urine (UA) Negative (Negative); Ketones,Urine Negative (Negative); Leukocyte Esterase,Urine Negative (Negative); Nitrate,Urine Negative (Negative); PH,Urine 7.5 (5.0-8.5); Protein,Urine Negative (Negative)
[2021-09-17 18:26] LABS: Bacteria,Urine Trace /lpf; Benzodiazepines Screen,Urine Negative ng/ml (<200)
[2021-09-17 18:27] LABS: Amphetamine/Metha Screen,Urine Negative ng/ml (<1000); Barbiturates Screen,Urine Negative ng/ml (<200)
[2021-09-17 18:29] LABS: Cannabinoid Screen,Urine Negative ng/ml (<50)
[2021-09-17 18:30] LABS: Cocaine Screen,Urine Negative ng/ml (<300); Methadone Screen,Urine Negative ng/ml (<300)
[2021-09-17 18:33] LABS: Opiate Screen,Urine Negative ng/ml (<300); Phencyclidine Screen,Urine Negative ng/ml (<25)
[2021-09-17 19:11] VITALS: BP 142/76; PULSE 90; RESP 20; TEMP 36.8; O2SAT 97; BMI 41.0
== END 2021-09-17 18:20 | disposition home or self-care (01) ==
LOC: LAB.DROPOF 16:57 → OBOUT 16:59 → OB 17:01
PROVIDERS: PCP Emergency Medicine; Visit Provider Nurse Practitioner Obstetrics & Gynecology
DX: O26.893 Other specified pregnancy related conditions, third trimester (principal); Z3A.36 36 weeks gestation of pregnancy; R10.2 Pelvic and perineal pain
CPT/HCPCS: 59025; 80305; 81001; 86403; G0463

== ENCOUNTER 2021-09-23 04:09 | Inpatient (IN) | payer OTHER, SELFPAY ==
[2021-09-23 04:34] VITALS: BMI 41.9
[2021-09-23 04:58] VITALS: BP 132/72; PULSE 90; RESP 18; O2SAT 98; BMI 40.7
[2021-09-23 05:14] LABS: Microscopic, Urine URINE MICROSCOPIC (MICROSCOPIC)
[2021-09-23 05:14] LABS: Coronavirus 19, PCR Not Detected (NotDetected); Influenza A, PCR Not Detected (NotDetected); Influenza B, PCR Not Detected (NotDetected)
[2021-09-23 05:20] LABS: Basophils % 0.4 % (0.1-2.0); Eosinophils # 0.1 K/mm3 (0.0-0.4); Eosinophils % 1.6 % (0.1-12.0); Hematocrit 32.4 % (37.0-47.0); Hemoglobin 10.5 g/dL (12.2-16.2); Lymphocytes # 2.1 K/mm3 (0.7-4.5); Mean Corpuscular HGB Conc 32.4 g/dL (31.8-35.4); Mean Corpuscular Hemoglobin 30.7 pg (27.0-31.2); Mean Corpuscular Volume 94.8 fl (81-99); Mean Platelet Volume 8.2 fl (7.4-10.4); Monocytes # 0.8 K/mm3 (0.1-1.0); Monocytes % 8.6 % (1.7-9.3); Neutrophils # 5.7 K/mm3 (1.8-7.8); Neutrophils % 65.5 % (37.0-80.0); Platelet Count 337 K/mm3 (142-424); Red Blood Count 3.41 M/mm3 (4.20-5.40); Red Cell Distribution Width 14.3 % (11.5-17.5); White Blood Count 8.7 K/mm3 (4.8-10.8)
[2021-09-23 05:52] LABS: Appearance,Urine CLEAR (Clear); Bilirubin,Urine Negative (Negative); Blood, Urine 2+ (Negative); Color,Urine YELLOW (Yellow); Glucose,Urine (UA) Negative (Negative); Ketones,Urine Negative (Negative); Leukocyte Esterase,Urine TRACE (Negative); Nitrate,Urine Negative (Negative); PH,Urine 6.5 (5.0-8.5); Protein,Urine Negative (Negative); Specific Gravity, Urine 1.015 (1.005-1.030); Urobilinogen,Urine 0.2 EU/dl (0.2)
[2021-09-23 06:04] LABS: Amphetamine/Metha Screen,Urine Negative ng/ml (<1000)
[2021-09-23 06:05] LABS: Barbiturates Screen,Urine Negative ng/ml (<200); Cannabinoid Screen,Urine Negative ng/ml (<50)
[2021-09-23 06:06] LABS: Cocaine Screen,Urine Negative ng/ml (<300)
[2021-09-23 06:07] LABS: Methadone Screen,Urine Negative ng/ml (<300); Opiate Screen,Urine Negative ng/ml (<300)
[2021-09-23 06:08] LABS: Phencyclidine Screen,Urine Negative ng/ml (<25)
[2021-09-23 06:11] LABS: Benzodiazepines Screen,Urine Negative ng/ml (<200)
--- NOTE | 2021-09-23 07:29 | HMH.PHAINT ---
MEDICATION RECONCILIATION COMPLETED ON PATIENT USING EXTERNAL FILL HISTORY FROM PHARMACY AND PHYSICIAN OFFICE. -OMAYRA MURRAYD
[2021-09-23 07:40] VITALS: BP 121/60; PULSE 88; RESP 18; TEMP 36.6; O2SAT 99
[2021-09-23 08:24] LABS: Bacteria,Urine 1+ /lpf; RBC,Urine Occasional #/hpf (0-3)
--- NOTE | 2021-09-23 10:16 | HMH.LABNOT ---
Labor Note - Subjective: Date: 09/23/21 Time: 09:30 regular contraction - Objective: NST:: Reactive Contractions:: every 2-3 minutes Cervical Dilation:: 4 Effacement:: 50% Station: -3 Membranes: artificially ruptured - Fetus: Monitoring?: Yes monitoring type:: Internal Comment:: I inserted an IUPC and applied a scalp clip. - Assessment: Labor progressing?: Yes Cephalopelvic disproportion?: No Patient Problems: All Active Problems UTI (urinary tract infection) (Acute) Upper respiratory infection (Acute) Viral syndrome (Acute) Exposure to COVID-19 virus (Acute) Round ligament pain (Acute) Bronchitis (Acute) Dehydration (Acute) Third trimester fetus (Acute) Chronic hypertension affecting (Acute) (Acute) - Plan: Anesthesia for epidural?: Yes Continue to labor down?: Yes Plan for ?: No Continue to monitor?: Yes Start pushing?: No
--- NOTE | 2021-09-23 12:18 | HMH.ANESCL ---
[facility] Anesthesia Checklist - Patient Identification Patient Identification: Arm Band, Verbal (Name & ) - Structural Data Admitted From: Inpatient Planned Operative Procedure/s: MAGDY Consent for Planned Operative Procedure(s) Verified: Yes Verified Documents: Surgical Consent - Chart Verification Results Verified: CBC - Airway Assessment C-Spine Mobility Assessed: Yes TMJ Mobility Assessed: Yes Dentition: Good Dentition - Neurological Assessment Level of Consciousness: Awake, Alert, Appropriate - Anesthesia Plan Anesthesia Risk discussed: Yes ASA Class: II Anesthesia Type: Epidural [facility] History I have reviewed the patient's past medical history: Yes Medical History: Reports:: Hypertension Denies:: Cancer, Diabetes Mellitus Type 1, Diabetes Mellitus Type 2, MRSA *Have you ever received a pneumonia vaccine?: No *Have you received a flu vaccine this season?: No Anesthesia experience/problems:: none Laterality Cases: Bilateral: Tonsillectomy, Other Other Surgeries: Yes: No Previous Surgery. No: Amputation: No Fractures: No - *Social History Smoking Status: Current every day smoker Tobacco Type: cigarettes # Packs/Day (cigarettes): 1 Alcohol Intake: never Alcohol Intake Frequency:: other Substance Use Type: denies use *Occupational Status:: unemployed Housing: house Household Members: family *Travel in the last 8 weeks: None Family Hx:: Hypertension, Diabetes Para: 1
[2021-09-23 12:49] VITALS: BP 111/54; PULSE 82; RESP 18; TEMP 36.8; O2SAT 99
--- NOTE | 2021-09-23 13:48 | HMH.LABNOT ---
Labor Note - Subjective: Date: 09/23/21 Time: 12:10 regular contraction - Objective: NST:: Reactive Contractions:: every 2-3 minutes Cervical Dilation:: 4 Effacement:: 75% Station: -3 Membranes: artificially ruptured - Fetus: Monitoring?: Yes monitoring type:: Internal - Assessment: Labor progressing?: Yes Cephalopelvic disproportion?: No Patient Problems: All Active Problems UTI (urinary tract infection) (Acute) Upper respiratory infection (Acute) Viral syndrome (Acute) Exposure to COVID-19 virus (Acute) Round ligament pain (Acute) Bronchitis (Acute) Dehydration (Acute) Third trimester fetus (Acute) Chronic hypertension affecting (Acute) (Acute) - Plan: Anesthesia for epidural?: Yes Continue to labor down?: Yes Plan for ?: No Continue to monitor?: Yes Start pushing?: No
--- NOTE | 2021-09-23 13:48 | HMH.LABNOT ---
Labor Note - Subjective: Date: 09/23/21 Time: 13:48 regular contraction - Objective: NST:: Reactive Contractions:: every 2-3 minutes Cervical Dilation:: 5-6 Effacement:: 100% Station: 0 Membranes: artificially ruptured - Fetus: Monitoring?: Yes monitoring type:: Internal - Assessment: Labor progressing?: Yes Cephalopelvic disproportion?: No Patient Problems: All Active Problems UTI (urinary tract infection) (Acute) Upper respiratory infection (Acute) Viral syndrome (Acute) Exposure to COVID-19 virus (Acute) Round ligament pain (Acute) Bronchitis (Acute) Dehydration (Acute) Third trimester fetus (Acute) Chronic hypertension affecting (Acute) (Acute) - Plan: Anesthesia for epidural?: Yes Continue to labor down?: Yes Plan for ?: No Continue to monitor?: Yes Start pushing?: No Comment:: She is feeling some pressure in the baby's head is come down significantly. She is now 5 to 6 cm. The cervix is then dried out. Nonstress test is reactive. We will expect a vaginal delivery.
--- NOTE | 2021-09-23 13:51 | HMH.OBAPHP ---
OB - H&P: HPI Antepartum - History of Present Illness Chief complaint: Term , increased blood pressure History of present illness: She is a 26-year-old 2 para 1 obese lady who has chronic hypertension as well as likely some superimposed -induced hypertension. She is required increasing dosing throughout the of her antihypertensives and as result of that we elected to deliver her at 37 weeks. - History of Present Criteria for establishing EDC:: LMP confirmed by 1st trimester US care: good care Ultrasounds: normal 1st trimester US, normal mid trimester US Obstetrical complications: gestational hypertension Medical complications: cardiovascular - Labs Blood type: O (+) positive Rubella: immune RPR/VDRL: nonreactive GBS status: negative HBsAG: negative [facility] History I have reviewed the patient's past medical history: Yes Medical History: Reports:: Hypertension Denies:: Cancer, Diabetes Mellitus Type 1, Diabetes Mellitus Type 2, MRSA *Have you ever received a pneumonia vaccine?: No *Have you received a flu vaccine this season?: No Anesthesia experience/problems:: none Laterality Cases: Bilateral: Tonsillectomy, Other Other Surgeries: Yes: No Previous Surgery. No: Amputation: No Fractures: No - *Social History Smoking Status: Current every day smoker Tobacco Type: cigarettes # Packs/Day (cigarettes): 1 Alcohol Intake: never Alcohol Intake Frequency:: other Substance Use Type: denies use *Occupational Status:: unemployed Housing: house Household Members: family *Travel in the last 8 weeks: None Family Hx:: Hypertension, Diabetes Para: 1 Review of Systems - Review of Systems Review of systems:: pertinent systems reviewed and negative unless documented below Meds Home Medications Medication Instructions Recorded Confirmed Type prenat.vits,joann,lws-[id number] 1 tab PO DAILY 04/22/21 09/23/21 History aspirin 81 mg tablet,delayed 81 mg PO DAILY tab 07/23/21 09/23/21 History release Ferrous Sulfate 325 mg PO DAILY 09/02/21 09/23/21 History Labetalol HCl 100 mg PO BID 09/02/21 09/23/21 History Hydrocortisone [Hydrocortisone 1% 1 applicatio TP TID 09/23/21 09/23/21 History Cream 30gm Tube] NIFEdipine [Nifedipine ER] 90 mg PO DAILY 09/23/21 09/23/21 History Allergies Allergy/AdvReac Type Severity Reaction Status Date / Time adhesive [ADHESIVE] Allergy Unknown SWELLING Verified 09/21/21 10:07 OB - H&P: Exam - Physical Exam Vital signs: Temp Pulse Resp BP Pulse Ox 98.2 F 82 18 111/54 L 99 09/23/21 12:49 09/23/21 12:49 09/23/21 12:49 09/23/21 12:49 09/23/21 12:49 - Constitutional no acute distress - Routine HEENT Exam Head: Present: normocephalic Eye: Present: EOMI, PERRL ENT: Present: mucous membranes moist - Routine Neck Exam Present: supple, full ROM - Routine Respiratory Exam Absent: accessory muscle use (good air entry bilaterally), respiratory distress, wheezes, crackles - Routine Cardiovascular Exam Present: RRR. Absent: murmur - Routine Abdominal Exam Present: soft, normoactive bowel sounds. Absent: tenderness, distended, guarding - Routine Rectal Exam Patient deferred: visual exam, digital exam - Routine Exam Patient deferred: external exam, groin exam, perineal exam - Routine Extremities Exam Present: full ROM. Absent: cyanosis, edema - Routine Skin Exam Present: intact. Absent: cyanosis - Routine Neurological Exam Present: alert, oriented X3 - Routine Psychiatric Exam Present: normal affect OB - Results - Labs Labs: Short CBC 09/23/21 Range/Units 05:00 WBC 8.7 (4.8-10.8) K/mm3 Hgb 10.5 L (12.2-16.2) g/dL Hct 32.4 L (37.0-47.0) % Plt Count 337 (142-424) K/mm3 Urine 09/23/21 Range/Units 04:30 Urine Color Yellow (Yellow) Urine Appearance Clear (Clear) Urine pH 6.5 (5.0-8.5) Ur Specific [place] 1.015 (1.005-
--- NOTE | 2021-09-23 15:42 | P.PCN_ITS ---
- Delivery Note Delivery Date:: 09/23/21 Delivery Time:: 15:28 Anesthesia Type: Epidural Was labor medically induced?: Yes Induction method: per pitocin protocol Gestational age (weeks): 37 delivered prior to 39 weeks?: Yes Justification for early elective delivery:: Gestational Hypertension, Pre- eclampsia Gender: Female at 1 minute: 8 at 5 minutes: 9 Delivery Procedure:: She is a 26-year-old 2 para 1 at 37 weeks gestational age. We have followed her throughout the with high blood pressure. She has been requiring increasing dosages of blood pressure medicine to keep up with her blood pressure. She did have a 24-hour urine that showed 420 mg of protein indicating a gestational component to her high blood pressure. She was started on IV oxytocin had her membranes ruptured. Under labor epidural she progressed to full dilation and delivered spontaneously a liveborn female child at 3:28 PM in the afternoon of September 23, 2021. On deliver the head it was noted that there was a tight nuchal cord. I allow the rest the infant's body to deliver and then reduce this cord. The baby was crying and stimulated. We allowed the cord to continue to pulsate for approximately 1 minute. The cord was then doubly clamped and cut and the infant was placed on the mother's abdomen for further care. The nurses assigned Apgars of 8 at 1 minute and 9 at 5 minutes. We then obtained cord blood. She received IV oxytocin using gentle traction on the cord and countertraction on the fundus I was able to easily deliver the placenta intact. He had a normal three-vessel cord. There were no perineal or vaginal lacerations. She has O+ blood, she is well immune and was group B streptococcus negative. She plans to bottlefeed. Her estimated blood loss was approximately 200 cc. Placental Delivery Description: Spontaneous
[2021-09-23 16:00] VITALS: BP 144/73; PULSE 75; RESP 18; TEMP 36.8; O2SAT 99
--- NOTE | 2021-09-23 17:31 | HMH.ACPN2 ---
Internal Medicine - PN: Subj *Date: 09/23/21 *Time: 17:31 Interval history: She had some bleeding and has failed a check. She has a total of about 1200 cc in 2 checks that I got out. We will go ahead and start the hemorrhage protocol. She has received Methergine 1 dose. We will go ahead and start Cytotec 400 mcg every 6 for the next 24 hours. We will continue with her oxytocin overnight. After having removed clots from the uterus, it has completely contracted down and is extremely firm. There is no further active bleeding. Exam Vital signs and Labs for Last 24 Hours: Temp Pulse Resp BP Pulse Ox 98.2 F 82 18 111/54 L 99 09/23/21 12:49 09/23/21 12:49 09/23/21 12:49 09/23/21 12:49 09/23/21 12:49 Laboratory Results - last 24 hr 09/23/21 04:30: Urine Color Yellow, Urine Appearance Clear, Urine pH 6.5, Ur Specific [place] 1.015, Urine Protein Negative, Urine Glucose (UA) Negative, Urine Ketones Negative, Urine Blood 2+, Urine Nitrate Negative, Urine Bilirubin Negative, Urine Urobilinogen 0.2, Ur Leukocyte Esterase Trace, Urine RBC Occasional, Urine WBC 3-5, Ur Squamous Epith Cells 5-10, Urine Bacteria 1+ 09/23/21 04:30: Urine Opiates Screen Negative, Urine Methadone Screen Negative, Ur Barbituates Screen Negative, Ur Phencyclidine Scrn Negative, Ur Amphetamines Screen Negative, U Benzodiazepines Scrn Negative, Urine Cocaine Screen Negative, U Marijuana (THC) Screen Negative 09/23/21 04:45: SARS-CoV-2 (PCR) Not detected, Influenza A Untype (PCR) Not detected, Influenza Type B (PCR) Not detected 09/23/21 05:00: WBC 8.7, RBC 3.41 L, Hgb 10.5 L, Hct 32.4 L, MCV 94.8, MCH 30.7, MCHC 32.4, RDW 14.3, Plt Count 337, MPV 8.2, Neut % (Auto) 65.5, Lymph % (Auto) 24.0, [place] % (Auto) 8.6, Eos % (Auto) 1.6, Baso % (Auto) 0.4, Neut # (Auto) 5.7, Lymph # (Auto) 2.1, [place] # (Auto) 0.8, Eos # (Auto) 0.1, Baso # (Auto) 0.0 09/23/21 05:00: Blood Type O Positive, Antibody Screen Negative, Crossmatch (AHG) See Detail I & O for Last 24 hours: Intake & Output 09/21/21 09/22/21 09/23/21 09/24/21 11:59 11:59 11:59 11:59 Weight 260 lb - Constitutional no acute distress - *Routine HEENT Exam Head: Present: normocephalic Eye: Present: EOMI, PERRL ENT: Present: mucous membranes moist Assessment and Plan (1) Normal delivery at term Status: Acute Category: Medical Code(s): O80 - Encounter for full-term uncomplicated delivery (2) Chronic hypertension affecting Status: Acute Category: Medical Code(s): O10.919 - Unspecified pre-existing hypertension complicating , unspecified trimester (3) hemorrhage Status: Acute Category: Medical Code(s): O72.1 - Other immediate hemorrhage - Assessment and plan all Dx Assessment and Plan for all problems:: Her uterus is now well contracted after clearing of clots from the lining of the uterus. There is minimal bleeding from the vagina. The uterus itself is well contracted and extremely firm. It is too below the umbilicus. We will start the hemorrhage protocol. We will continue to monitor closely. I have ordered her Cytotec 400 mcg every 6 with the first dose now. She has received 1 dose of Methergine. She will continue with oxytocin.
[2021-09-24 07:23] LABS: Hematocrit 28.5 % (37.0-47.0)
--- NOTE | 2021-09-24 08:51 | HMH.ACPN2 ---
Internal Medicine - PN: Subj *Date: 09/24/21 *Time: 08:51 Interval history: She continues to do very well. She is eating and drinking and ambulating. She does complain of some swelling in her feet. Blood pressures are reasonable. Her hemoglobin is 9.0 this morning. Her lochia is normal. Exam Vital signs and Labs for Last 24 Hours: Temp Pulse Resp BP Pulse Ox 98.3 F 75 18 144/73 H 99 09/23/21 16:00 09/23/21 16:00 09/23/21 16:00 09/23/21 16:00 09/23/21 16:00 Laboratory Results - last 24 hr 09/23/21 05:00: Blood Type O Positive, Antibody Screen Negative, Crossmatch (AHG) See Detail 09/24/21 06:45: Hgb 9.0 L, Hct 28.5 L I & O for Last 24 hours: Intake & Output 09/21/21 09/22/21 09/23/21 09/24/21 11:59 11:59 11:59 11:59 Weight 260 lb - Constitutional no acute distress - *Routine HEENT Exam Head: Present: normocephalic Eye: Present: EOMI, PERRL ENT: Present: mucous membranes moist Assessment and Plan (1) Normal delivery at term Status: Acute Category: Medical Code(s): O80 - Encounter for full-term uncomplicated delivery (2) Chronic hypertension affecting Status: Acute Category: Medical Code(s): O10.919 - Unspecified pre-existing hypertension complicating , unspecified trimester (3) hemorrhage Status: Acute Category: Medical Code(s): O72.1 - Other immediate hemorrhage - Assessment and plan all Dx Assessment and Plan for all problems:: She is doing very well this morning despite the fact that she had excess bleeding. We will plan to send her home tomorrow.
--- NOTE | 2021-09-25 09:19 | HMH.OBDCSM ---
General - General Admission date:: 09/23/21 Discharge date: 09/25/21 HPI - History of Present Illness History of present illness: She is a 26-year-old 2 now para 2 at 37 weeks gestational age. She has significant gestational hypertension requiring increasing dosages towards the end of . As result of that she was brought in for induction of labor at 37 weeks. Hospital Course Hospital Course: She was started on IV oxytocin and had her membranes ruptured. Under labor epidural scratch to full dilation and delivered spontaneously a liveborn female child in the afternoon of September 23, 2020. The baby had Apgars of 8 at 1 minute and 9 at 5 minutes. She has done well and has remained afebrile with her hospitalization. She is eating and drinking and ambulating. She is bottlefeeding. Her lochia is normal. She has O+ blood, she is well immune and was group B streptococcus negative. 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 El. She is discharged home to follow-up with me in approximately 10 days time. She will continue with nifedipine 90 mg extended release daily. She will stop her labetalol. Her blood pressures have been doing well. She will also take Lasix 20 mg daily since she does have some significant swelling in her feet. She was given the usual instructions with respect to limiting her activity, driving and sexual activity. Her condition on discharge is stable and improved. Rhogam Administration: Not Indicated Objective Vital signs: Temp Pulse Resp BP Pulse Ox 98.3 F 75 18 144/73 H 99 09/23/21 16:00 09/23/21 16:00 09/23/21 16:00 09/23/21 16:00 09/23/21 16:00 no acute distress - *Routine HEENT Exam Head: Present: normocephalic Eye: Present: EOMI, PERRL ENT: Present: mucous membranes moist - *Routine Extremities Exam Present: edema. Absent: cyanosis, clubbing Results Labs on day of discharge: Labs from last 24 hours 09/23/21 05:00 Crossmatch (AHG) See Detail DS: Diagnosis - Discharge Diagnosis (1) Normal delivery at term Status: Acute (2) Chronic hypertension affecting Status: Acute (3) hemorrhage Status: Acute Discharge Plan - Patient Discharge Instructions ACTIVITY: No heavy lifting DIET: continue same diet Additional Instructions: NOTHING IN THE VAGINA FOR 6 WEEKS NO TUB BATHS DRINK PLENTY OF FLUIDS Patient Instructions: Depression, Hemorrhage, DI for Labor and Delivery, Vaginal , DI for Pre-eclampsia, [facility] Post Discharge Instructions, Preventing the Spread of Coronavirus Discharge Instructions - Follow up Plan Follow up with: Osvaldo Foster MD [Staff Physician] - Disposition: Home, Self-Care Condition at discharge:: Stable Home Medications: Home Medications Medication Instructions Recorded Confirmed Type prenat.vits,joann,hxw-voif-zkget 1 tab PO DAILY 04/22/21 09/23/21 History aspirin 81 mg tablet,delayed 81 mg PO DAILY tab 07/23/21 09/23/21 History release Ferrous Sulfate 325 mg PO DAILY 09/02/21 09/23/21 History Labetalol HCl 100 mg PO BID 09/02/21 09/23/21 History Hydrocortisone [Hydrocortisone 1% 1 applicatio TP TID 09/23/21 09/23/21 History Cream 30gm Tube] NIFEdipine [Nifedipine ER] 90 mg PO DAILY 09/23/21 09/23/21 History Furosemide [Lasix 20mg tablet] 20 mg PO DAILY #10 tab 09/25/21 Rx Prescriptions/Medication Reconciliation: New Furosemide [Lasix 20mg tablet] 20 mg PO DAILY #10 tab Continued prenat.vits,joann,mdt-juna-xhvvu 1 tab PO DAILY aspirin 81 mg tablet,delayed release 81 mg PO DAILY tab Ferrous Sulfate 325 mg PO DAILY Hydrocortisone [Hydrocortisone 1% Cream 30gm Tube] 1 applicatio TP TID NIFEdipine [Nifedipine ER] 90 mg PO DAILY Discontinued Labetalol HCl 100 mg PO BID - Problem Reconciliation Problems Reviewed?: Yes
--- NOTE | 2021-09-28 14:37 | CARE MANAGER ---
Spoke with patient who states she is getting admitted to hospital due to elevated blood pressure and swelling in legs and feet. The baby is doing well though. Denies any questions or concerns. TINY Soto
== END 2021-09-25 12:30 | disposition home or self-care (01) | DRG 806 ==
PROVIDERS: Admitting Provider Nurse Practitioner Obstetrics & Gynecology; PCP Emergency Medicine; Visit Provider Nurse Practitioner Obstetrics & Gynecology
DX: O10.013 Pre-existing essential hypertension complicating pregnancy, third trimester (principal); O72.1 Other immediate postpartum hemorrhage; Z37.0 Single live birth; O11.3 Pre-existing hypertension with pre-eclampsia, third trimester; Z3A.37 37 weeks gestation of pregnancy
CPT/HCPCS: 59409; 36415; 59025; 80305; 81001; 85014; 85018; 85025; 86850; 94761; C1758; C9803; G0283; J2405; U0003; U0005

== ENCOUNTER 2021-09-28 16:28 | Inpatient (IN) | payer OTHER, SELFPAY ==
[2021-09-28 16:20] VITALS: BMI 39.6
[2021-09-28 16:39] VITALS: BP 150/80; PULSE 53; RESP 17; TEMP 36.9; O2SAT 98
--- NOTE | 2021-09-28 16:45 | HMH.HP ---
*Admission Date: 09/28/21 *Chief complaint: -induced hypertension, hemorrhoid, 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 *History of present illness: She is a 26-year-old 2 para 2 who is 5 days post vaginal delivery. She complains of increased blood pressure. She had blood pressure issues throughout the and has chronic hypertension. She had been taking labetalol 400 mg twice daily as well as nifedipine 90 mg XL. We stopped the labetalol after her delivery since her blood pressure was normal. She had some significant swelling as well in her feet and we started her on Lasix 20 mg twice daily. Now she complains of a mild headache for the last few days as well as not having had a bowel movement. She also has difficulty voiding she says. She says she feels like she needs to void all the time. In my office her blood pressure was 160/105. This was done manually by me. Her reflexes are flat. As result of the increased blood pressure we have elected to admit her overnight for observation. She has 2+ edema. [facility] History I have reviewed the patient's past medical history: Yes Medical History: Reports:: Hypertension Denies:: Cancer, Diabetes Mellitus Type 1, Diabetes Mellitus Type 2, MRSA *Have you ever received a pneumonia vaccine?: No *Have you received a flu vaccine this season?: No Laterality Cases: Bilateral: Tonsillectomy, Other Other Surgeries: Yes: No Previous Surgery. No: Amputation: No Fractures: No - *Social History Smoking Status: Never smoker Tobacco Type: cigarettes # Packs/Day (cigarettes): 1 Alcohol Intake: never Alcohol Intake Frequency:: other Substance Use Type: denies use *Occupational Status:: unemployed Housing: house Household Members: family *Travel in the last 8 weeks: None Family Hx:: Hypertension, Diabetes Review of Systems - Review of Systems Review of systems:: pertinent systems reviewed and negative unless documented below Meds Home Medications Medication Instructions Recorded Confirmed Type prenat.vits,joann,fvo-hoac-aydpl 1 tab PO DAILY 04/22/21 09/28/21 History Ferrous Sulfate 325 mg PO DAILY 09/02/21 09/28/21 History NIFEdipine [Nifedipine ER] 90 mg PO DAILY 09/23/21 09/28/21 History Furosemide [Lasix 20mg tablet] 20 mg PO DAILY #10 tab 09/25/21 09/28/21 Rx hydrocortisone 1 % topical cream 1 applic TOPICAL TID PRN #28.35 g 09/28/21 09/28/21 Rx polyethylene glycol 3350 17 17 g PO DAILY #119 g 09/28/21 09/28/21 Rx gram/dose oral powder Allergies Allergy/AdvReac Type Severity Reaction Status Date / Time adhesive [ADHESIVE] Allergy Unknown SWELLING Verified 09/28/21 14:02 Exam Vital signs and Labs for Last 24 Hours: Temp Pulse Resp BP Pulse Ox 98.5 F 53 L 17 150/80 H 98 09/28/21 16:39 09/28/21 16:39 09/28/21 16:39 09/28/21 16:39 09/28/21 16:39 I & O for Last 24 hours: Intake & Output 09/26/21 09/27/21 09/28/21 09/29/21 11:59 11:59 11:59 11:59 Weight 253 lb - Constitutional no acute distress - *Routine HEENT Exam Head: Present: normocephalic Eye: Present: EOMI, PERRL ENT: Present: mucous membranes moist - *Routine Neck Exam Present: supple, full ROM - *Routine Respiratory Exam Absent: accessory muscle use (good air entry bilaterally), wheezes, crackles - *Routine Cardiovascular Exam Present: RRR. Absent: murmur - *Routine Abdominal Exam Present: soft, normoactive bowel sounds. Absent: tenderness, rebound, guarding, mass - *Routine Rectal Exam Rectal:: other Comments:: She has a small thrombosed hemorrhoid approximately 8 mm in size on the lateral right anus - *Routine Genitalia Exam Genitalia:: normal female - *Routine Extremities Exam Present: edema, full ROM. Absent: cyanosis, calf tenderness Comments: She has 2+ pitting edema - *Routine Skin Exam Present: intact (good color) - *Routine Neurological Exam Present: alert, oriented X3 Flat reflexes - Routine Psychiatric Exam Present: normal affect
[2021-09-28 17:11] LABS: Coronavirus 19, PCR Not Detected (NotDetected); Influenza A, PCR Not Detected (NotDetected); Influenza B, PCR Not Detected (NotDetected)
[2021-09-28 17:17] LABS: Activated Partial Thrombo Time 27.7 seconds (22.8-30.6); Fibrinogen 356 mg/dL (229.9-363.5); INR 0.93 (0.9-1.1); Prothrombin Time 10.6 seconds (10.1-12.5)
[2021-09-28 17:21] LABS: Basophils # 0.1 K/mm3 (0-0.2); Basophils % 0.7 % (0.1-2.0); Eosinophils # 0.2 K/mm3 (0.0-0.4); Eosinophils % 2.7 % (0.1-12.0); Hematocrit 26.3 % (37.0-47.0); Hemoglobin 8.5 g/dL (12.2-16.2); Lymphocytes # 1.8 K/mm3 (0.7-4.5); Lymphocytes % 23.2 % (10-50); Mean Corpuscular HGB Conc 32.5 g/dL (31.8-35.4); Mean Corpuscular Hemoglobin 30.8 pg (27.0-31.2); Mean Corpuscular Volume 94.9 fl (81-99); Mean Platelet Volume 8.1 fl (7.4-10.4); Monocytes # 0.4 K/mm3 (0.1-1.0); Monocytes % 5.3 % (1.7-9.3); Neutrophils # 5.3 K/mm3 (1.8-7.8); Platelet Count 335 K/mm3 (142-424); Red Blood Count 2.77 M/mm3 (4.20-5.40); Red Cell Distribution Width 14.3 % (11.5-17.5); White Blood Count 7.8 K/mm3 (4.8-10.8)
[2021-09-28 17:34] LABS: NT Pro Brain Natriuretic Pep. 495 pg/mL (0-125)
[2021-09-28 18:09] LABS: D-Dimer 2.82 ug/mL (0.0-0.5)
--- NOTE | 2021-09-28 18:35 | PC.NURSE ---
UPON ADMISSION, PT A&OX4. HAS HAD NO NEEDS OR C/O SINCE ARRIVAL TO FLOOR. MANUAL B/P TAKEN UPON ARRIVAL. REFLEXES CHECKED WELL. PT DOES HAVE +2 PITTING EDEMA IN BLE. PT UP TO SHOWER AT THIS TIME. VSS, WILL CONTINUE TO MONITOR.
[2021-09-28 18:38] LABS: Alanine Aminotransferase 26 U/L (12-78); Anion Gap 10.5 mEq/L (5-15); Aspartate Amino Transferase 33 U/L (14-36); Blood Urea Nitrogen 7 mg/dl (7-17); Calcium 8.2 mg/dl (8.4-10.2); Carbon Dioxide 20 mmol/L (22.0-30.0); Chloride 113 mmol/L (98-107); Creatinine Clearance Estimated 262 mL/min (50-200); Estimated Glomerular Filt Rate 123 ml/min (>60); GFR (African American) 149 ML/MIN (>60); Glucose 82 mg/dl (74-100); Potassium 3.5 mmoL/L (3.5-5.1); Sodium 140 mmol/L (136-145); Uric Acid 6.3 mg/dl (2.5-6.2)
[2021-09-28 18:42] LABS: Microscopic, Urine URINE MICROSCOPIC (MICROSCOPIC)
--- NOTE | 2021-09-28 19:15 | PC.NURSE ---
pt called out after her shower stating that her iv came out while she was showering. new iv placed in right forearm. pt tolerated well.
[2021-09-28 19:35] VITALS: O2SAT 100
[2021-09-28 19:38] VITALS: BP 164/91; PULSE 65; RESP 18; TEMP 36.8; O2SAT 100
[2021-09-28 19:55] LABS: Appearance,Urine SL CLOUDY (Clear); Bilirubin,Urine Negative (Negative); Blood, Urine 3+ (Negative); Color,Urine YELLOW (Yellow); Glucose,Urine (UA) Negative (Negative); Ketones,Urine Negative (Negative); Leukocyte Esterase,Urine 2+ (Negative); Nitrate,Urine Negative (Negative); Protein,Urine 1+ (Negative); Specific Gravity, Urine 1.015 (1.005-1.030); Urobilinogen,Urine 0.2 EU/dl (0.2)
[2021-09-28 20:13] LABS: WBC,Urine 50-100 #/hpf (0-3)
[2021-09-28 20:14] LABS: Bacteria,Urine 3+ /lpf
[2021-09-28 23:21] VITALS: BP 145/74; PULSE 59; RESP 17; TEMP 36.7; O2SAT 98
[2021-09-29] VITALS (13 sets, daily range): BP systolic 100–170; BP diastolic 50–92; PULSE 50–89; RESP 17–18; TEMP 36.8–36.9; O2SAT 95–99
--- NOTE | 2021-09-29 07:37 | HMH.PHAVTE ---
[facility] Pharmacy VTE Monitoring - Patient Demographics Admission date: 09/28/21 Report Date: 09/29/21 Time: 07:37 Allergies/Adverse Reactions: Patient Allergies adhesive [ADHESIVE] Allergy (Unknown, Verified 09/28/21 14:02) SWELLING Height: 1.7 m Weight: 114.759 kg Patient Problems: Current Active Problems hypertension (Acute) Hemorrhoid (Acute) Constipation (Acute) Edema, peripheral (Acute) Chronic hypertension affecting (Acute) - VTE Risk Labs: VTE Related Lab Results Hgb 8.5 g/dL (12.2-16.2) L 09/28/21 16:45 Hct 26.3 % (37.0-47.0) L 09/28/21 16:45 Plt Count 335 K/mm3 (142-424) 09/28/21 16:45 PT 10.6 seconds (10.1-12.5) 09/28/21 16:45 INR 0.93 (0.9-1.1) 09/28/21 16:45 APTT 27.7 seconds (22.8-30.6) 09/28/21 16:45 Fibrinogen 356 mg/dL (229.9-363.5) 09/28/21 16:45 BUN 7 mg/dl (7-17) 09/28/21 16:45 Creatinine 0.60 mg/dl (0.52-1.04) 09/28/21 16:45 Estimated Creat Clear 262 mL/min (50-200) 09/28/21 16:45 - Prophylaxis VTE Prophylaxis Ordered?: Yes Types of VTE Prophylaxis: TEDS Knee High Location of Applied Device: Bilateral Lower Extremeties
--- NOTE | 2021-09-29 07:39 | HMH.PHAINT ---
MEDICATION RECONCILIATION COMPLETED ON PATIENT USING EXTERNAL FILL HISTORY FROM PHARMACY AND LIST FROM ANESTHESIA ATTENDING OFFICE. -OMAYRA MURRAYD
--- NOTE | 2021-09-29 09:36 | CA_ITS ---
APPROVED REPORT EXAM: Comprehensive 2D, Doppler, and color-flow Echocardiogram Financial Aid: Mirlande Fontenot RT(R) Ht: 5 ft 6 in Wt: 252lbs BSA: 2.21 BP: 150/80 mmHg Indications: HTN, 5 days post , Patient states she only has HTN with pregnancies. edema. bradycardia 2D Dimensions LVOT 2.18 cm (M/F) 1.5-2.5 LVEF (Hamilton's) 53.90 % F: 54 - 74 LV Volume 196.40 mL F: 46 - 106 LV Volume Index 89.27 mL/m2 F: 29 - 61 LA Volume 49.30 mL LA Volume Index 22.40 mL/m2 (M/F) 16-34 M-Mode Dimensions RVDd 2.29 cm (0.9-2.6) LA Diam 3.75 cm (1.9-4.0) LVDd 6.01 cm (3.5-5.7) Ao Diam 2.42 cm (2.0-3.7) LVDs 4.67 cm (3.5-5.7) IVSd 0.95 cm (0.6-1.1) PWd 0.97 cm (0.6-1.1) EF (Teich) 44.20% FS 22.30% EDV (Teich) 180.70 mL ESV (Teich) 100.80 mL LV Diastology E Decel Time 170.00 (160-240 msec) E/A Ratio 2.7 MED E' 11.60 (< 7 cm/sec) E'/MED E' Ratio 10.27 (>14) LAT E' 11.20 (<10 cm/sec) E/LAT E' Ratio 10.63 (>14) Aortic Valve LVOT Max 124.00 (70-110 cm/s) LVOT VTI 27.83 cm AoV Peak Timi. 155.00 (50-130 cm/s) AO Peak GR. 9.60 mmHg AO Mean GR. 4.70 (<5 mmHg) AO VTI 35.25 (18-25 cm) KATIE (VTI) 2.95 (2.5-4.5 cm2) Mitral Valve MV E Max Timi. 119.00 (40-130 cm/s) MV A Velocity 44.00 (40-130 cm/s) E/A Ratio 2.73 MV Decel. Time 170.00 (160-240 ms) MV PHT 50.00 ms Tricuspid Valve TR P. Velocity 283.00 cm/s RAP Estimate 15.00 mmHg RVSP 47.10 mmHg Left Ventricle Left atrium is qualitatively mildly enlarged, left ventricle is normal size, visually estimated ejection fraction 55% with no regional wall motion abnormality, diastolic parameters are within normal range. Right Ventricle Right atrium and right ventricle are normal size and contractility. Aortic Valve Aortic valve is minimally thickened and fibrosed, there is trace aortic insufficiency. There is no aortic stenosis. Mitral Valve Posterior mitral leaflet appears to be mildly redundant, there is no mitral stenosis, there is moderate mitral regurgitation. Tricuspid Valve Tricuspid valve grossly normal, there is mild tricuspid rotation, calculated right ventricular systolic pressure is 40 mmHg. Pulmonic Valve Pulmonic valve is poorly visualized. Great Vessels Aortic root is normal size. Inferior vena cava is poorly visualized. Pericardium No significant pericardial effusion. Conclusion 1. Normal left ventricular size, visually estimated ejection fraction 55% with no regional wall motion abnormality, diastolic parameters are within normal range. 2. Trace aortic, moderate mitral and mild tricuspid regurgitation, calculated right ventricular systolic pressure is 40 mmHg. 3. No significant pericardial effusion. 4. Inferior vena cava is poorly visualized. Electronically signed by : Trae Stevens MD 09/29/2021 19:57:43
--- NOTE | 2021-09-29 09:38 | ECG_ITS ---
APPROVED REPORT Exam: Resting ECG HR:50 bpm ECG Measurements Heart Rate 50 AXES [place] 137 P 20 QRSd 88 QRS 19 QT 439 T 55 QTc 413 Conclusion SINUS BRADYCARDIA WITH OCCASIONAL SUPRAVENTRICULAR PREMATURE COMPLEXES BORDERLINE ECG UNCONFIRMED REPORT Electronically signed by : Fernando Ledesma MD 09/30/2021 18:14:08
--- NOTE | 2021-09-29 10:08 | PC.NURSE ---
Bedside ECHO being performed.
--- NOTE | 2021-09-29 10:23 | PC.NURSE ---
A.M. assessment complete. Pt noted to have 0 reflexes bilat with 2 beats of clonus in rt leg. Facial edema noted as well as generalized BLE. Lungs clear to auscultate. Bradicardic HR noted. EKG and Echo has been performed this morning. Pt's mother at bs with baby visiting. Pt denies any SOB, chest pain or difficulty breathing. Currently c/o headache but no visual disturbances. No abdominal pain or epigastric pain at this time. Blood pressures are set to cycle q 30 minutes.
--- NOTE | 2021-09-29 10:50 | PC.NURSE ---
Nelson Romano (cardiology) at bs to see pt.
--- NOTE | 2021-09-29 11:43 | HMH.CNCARD ---
History of Present Illness Consult date: 09/29/21 Requesting physician: Osvaldo Foster Consult reason: hypertension Chief complaint: Hypertension Additional Medical History:: 1. Gestational hypertension 2. Family history of hypertensive kidney disease History of present illness: She is a 26-year-old 2 para 2 who is 5 days post vaginal delivery. She complains of increased blood pressure. She had blood pressure issues throughout the and has chronic hypertension. She had been taking labetalol 400 mg twice daily as well as nifedipine 90 mg XL. We stopped the labetalol after her delivery since her blood pressure was normal. She had some significant swelling as well in her feet and we started her on Lasix 20 mg twice daily. Now she complains of a mild headache for the last few days as well as not having had a bowel movement. She also has difficulty voiding she says. She says she feels like she needs to void all the time. In my office her blood pressure was 160/105. This was done manually by me. Her reflexes are flat. As result of the increased blood pressure we have elected to admit her overnight for observation. She has 2+ edema. The above per Dr. Reyes Patient does confirm gestational diabetes with both pregnancies. She was on no blood pressure medicine after the first but as noted above has been on blood pressure medicine since her delivery 5 days ago. She has noted some headaches and lower extremity edema. The patient's mother is in the room and relates a family history of kidney disease related to high blood pressure. Non-smoker (discontinued tobacco use prior to this ) Non-diabetic No history of seizures Echocardiogram performed today. Preliminary results show ejection fraction of 50-55% with elevated right ventricular systolic pressure in the 40-45 mmHg range. Official report is pending. Manual blood pressure by me 162/80 mmHg [facility] History Medical History: Reports:: Hypertension Denies:: Cancer, Diabetes Mellitus Type 1, Diabetes Mellitus Type 2, MRSA *Have you ever received a pneumonia vaccine?: No *Have you received a flu vaccine this season?: No Laterality Cases: Bilateral: Tonsillectomy, Other Other Surgeries: Yes: No Previous Surgery. No: Amputation: No Fractures: No - *Social History Smoking Status: Current every day smoker Tobacco Type: cigarettes # Packs/Day (cigarettes): 1 Alcohol Intake: never Alcohol Intake Frequency:: other Substance Use Type: denies use *Occupational Status:: unemployed Housing: house Household Members: family *Travel in the last 8 weeks: None Family Hx:: No significant family history Meds Home Medications Medication Instructions Recorded Confirmed Type prenat.vits,joann,lea-ggjd-txuea 1 tab PO DAILY 04/22/21 09/29/21 History Ferrous Sulfate 325 mg PO DAILY 09/02/21 09/29/21 History NIFEdipine [Nifedipine ER] 90 mg PO DAILY 09/23/21 09/29/21 History Furosemide [Lasix 20mg tablet] 20 mg PO DAILY 09/29/21 09/29/21 History Hydrocortisone 1 applic TP TID PRN 09/29/21 09/29/21 History polyethylene glycoL 3350 17 gm PO DAILY 09/29/21 09/29/21 History [Polyethylene Glycol 3350] Allergies Allergy/AdvReac Type Severity Reaction Status Date / Time adhesive [ADHESIVE] Allergy Unknown SWELLING Verified 09/28/21 14:02 Exam Vital signs and Labs for Last 24 Hours: Temp Pulse Resp BP Pulse Ox 98.4 F 50 L 17 170/80 H 95 09/29/21 03:00 09/29/21 09:30 09/29/21 03:00 09/29/21 09:30 09/29/21 10:35 Laboratory Results - last 24 hr 09/28/21 16:45: NT-Pro-B Natriuret Pep 495 H 09/28/21 16:45: SARS-CoV-2 (PCR) Not detected, Influenza A Untype (PCR) Not detected, Influenza Type B (PCR) Not detected 09/28/21 16:45: WBC 7.8, RBC 2.77 L, Hgb 8.5 L, Hct 26.3 L, MCV 94.9, MCH 30.8, MCHC 32.5, RDW 14.3, Plt Count 335, MPV 8.1, Neut % (Auto) 68.0, Lymph % (Auto) 23.2, [place] % (Auto) 5.3, Eos % (Auto) 2.7, Baso % (Auto) 0.7, Neut # (Auto) 5.3
[2021-09-29 13:09] LABS: Basophils # 0.1 K/mm3 (0-0.2); Basophils % 1.5 % (0.1-2.0); Eosinophils # 0.1 K/mm3 (0.0-0.4); Eosinophils % 1.7 % (0.1-12.0); Hematocrit 29.3 % (37.0-47.0); Lymphocytes # 1.6 K/mm3 (0.7-4.5); Lymphocytes % 21.2 % (10-50); Mean Corpuscular HGB Conc 32.5 g/dL (31.8-35.4); Mean Corpuscular Hemoglobin 30.9 pg (27.0-31.2); Mean Corpuscular Volume 95.1 fl (81-99); Monocytes # 0.4 K/mm3 (0.1-1.0); Neutrophils # 5.1 K/mm3 (1.8-7.8); Neutrophils % 69.6 % (37.0-80.0); Platelet Count 387 K/mm3 (142-424); Red Blood Count 3.08 M/mm3 (4.20-5.40); Red Cell Distribution Width 14.2 % (11.5-17.5); White Blood Count 7.3 K/mm3 (4.8-10.8)
[2021-09-29 13:16] LABS: Basophils # 0.1 K/mm3 (0-0.2); Basophils % 0.6 % (0.1-2.0); Eosinophils # 0.2 K/mm3 (0.0-0.4); Eosinophils % 2.1 % (0.1-12.0); Hematocrit 28.8 % (37.0-47.0); Hemoglobin 9.5 g/dL (12.2-16.2); Lymphocytes # 1.6 K/mm3 (0.7-4.5); Lymphocytes % 21.8 % (10-50); MANUAL DIFFERENTIAL MANUAL DIFFERENTIAL (MANUAL DIFF); Mean Corpuscular HGB Conc 32.9 g/dL (31.8-35.4); Monocytes # 0.4 K/mm3 (0.1-1.0); Neutrophils # 5.1 K/mm3 (1.8-7.8); Neutrophils % 69.5 % (37.0-80.0); Platelet Count 380 K/mm3 (142-424); Red Blood Count 3.06 M/mm3 (4.20-5.40); Red Cell Distribution Width 14.3 % (11.5-17.5); White Blood Count 7.3 K/mm3 (4.8-10.8)
[2021-09-29 13:20] LABS: Hemoglobin 9.5 g/dL (12.2-16.2)
[2021-09-29 13:25] LABS: Alanine Aminotransferase 72 U/L (12-78); Anion Gap 9.1 mEq/L (5-15); Aspartate Amino Transferase 69 U/L (14-36); Blood Urea Nitrogen 9 mg/dl (7-17); Calcium 8.4 mg/dl (8.4-10.2); Carbon Dioxide 22 mmol/L (22.0-30.0); Chloride 112 mmol/L (98-107); Creatinine Clearance Estimated 225 mL/min (50-200); Estimated Glomerular Filt Rate 103 ml/min (>60); GFR (African American) 124 ML/MIN (>60); Glucose 112 mg/dl (74-100); Potassium 3.1 mmoL/L (3.5-5.1); Sodium 140 mmol/L (136-145); Uric Acid 6.6 mg/dl (2.5-6.2)
[2021-09-29 13:26] LABS: Magnesium 1.8 mg/dl (1.6-2.3)
[2021-09-29 13:27] LABS: D-Dimer 3.41 ug/mL (0.0-0.5)
--- NOTE | 2021-09-29 14:00 | HMH.ACPN2 ---
Internal Medicine - PN: Subj *Date: 09/29/21 *Time: 14:00 Interval history: She was admitted yesterday with increased blood pressure. Her labs were normal except for a slightly elevated BNP. She had normal liver function test. Her blood pressures were moderate hypertension. Today her blood pressure is elevated in the 170s over 80s range. She has a mild headache. We have had her seen by cardiology and she did have an echo which showed some right sided increased pressures. She also has elevated liver function test today. They are just in the 60s and 70s. She has been started on magnesium sulfate since the pressures remained elevated. She is somewhat bradycardic on the labetalol. If her blood pressures remain elevated we will consider hydralazine. We will continue to watch her liver function tests. Her uric acid has risen from 6.3-6.6. Exam Vital signs and Labs for Last 24 Hours: Temp Pulse Resp BP Pulse Ox 98.4 F 88 18 105/54 L 96 09/29/21 03:00 09/29/21 13:30 09/29/21 13:20 09/29/21 13:30 09/29/21 13:15 Laboratory Results - last 24 hr 09/28/21 16:45: NT-Pro-B Natriuret Pep 495 H 09/28/21 16:45: SARS-CoV-2 (PCR) Not detected, Influenza A Untype (PCR) Not detected, Influenza Type B (PCR) Not detected 09/28/21 16:45: WBC 7.8, RBC 2.77 L, Hgb 8.5 L, Hct 26.3 L, MCV 94.9, MCH 30.8, MCHC 32.5, RDW 14.3, Plt Count 335, MPV 8.1, Neut % (Auto) 68.0, Lymph % (Auto) 23.2, [place] % (Auto) 5.3, Eos % (Auto) 2.7, Baso % (Auto) 0.7, Neut # (Auto) 5.3, Lymph # (Auto) 1.8, [place] # (Auto) 0.4, Eos # (Auto) 0.2, Baso # (Auto) 0.1 09/28/21 16:45: PT 10.6, INR 0.93, APTT 27.7, Fibrinogen 356 09/28/21 16:45: D-Dimer 2.82 H, Sodium 140, Potassium 3.5, Chloride 113 H, Carbon Dioxide 20 L, Anion Gap 10.5, BUN 7, Creatinine 0.60, Estimated Creat Clear 262, Estimated GFR 123, Est GFR ( Amer) 149, Glucose 82, Uric Acid 6.3 H, Calcium 8.2 L, AST 33, ALT 26 09/28/21 18:16: Urine Color Yellow, Urine Appearance Sl cloudy, Urine pH 7.0, Ur Specific [place] 1.015, Urine Protein 1+, Urine Glucose (UA) Negative, Urine Ketones Negative, Urine Blood 3+, Urine Nitrate Negative, Urine Bilirubin Negative, Urine Urobilinogen 0.2, Ur Leukocyte Esterase 2+ A, Urine RBC 10-20, Urine WBC 50-100, Ur Squamous Epith Cells 3-5, Urine Bacteria 3+ 09/29/21 12:56: Magnesium 1.8 09/29/21 12:56: WBC 7.3, RBC 3.08 L, Hgb 9.5 L D, Hct 29.3 L, MCV 95.1, MCH 30.9, MCHC 32.5, RDW 14.2, Plt Count 387, MPV 8.0, Neut % (Auto) 69.6, Lymph % (Auto) 21.2, [place] % (Auto) 6.0, Eos % (Auto) 1.7, Baso % (Auto) 1.5, Neut # (Auto) 5.1, Lymph # (Auto) 1.6, [place] # (Auto) 0.4, Eos # (Auto) 0.1, Baso # (Auto) 0.1 09/29/21 12:56: D-Dimer 3.41 H, Sodium 140, Potassium 3.1 L, Chloride 112 H, Carbon Dioxide 22, Anion Gap 9.1, BUN 9 D, Creatinine 0.70, Estimated Creat Clear 225, Estimated GFR 103, Est GFR ( Amer) 124, Glucose 112 H D, Uric Acid 6.6 H, Calcium 8.4, AST 69 H D, ALT 72 D 09/29/21 12:56: WBC 7.3, RBC 3.06 L, Hgb 9.5 L, Hct 28.8 L, MCV 94.0, MCH 31.0, MCHC 32.9, RDW 14.3, Plt Count 380, MPV 8.0, Neut % (Auto) 69.5, Lymph % (Auto) 21.8, [place] % (Auto) 6.0, Eos % (Auto) 2.1, Baso % (Auto) 0.6, Neut # (Auto) 5.1, Lymph # (Auto) 1.6, [place] # (Auto) 0.4, Eos # (Auto) 0.2, Baso # (Auto) 0.1 I & O for Last 24 hours: Intake & Output 09/27/21 09/28/21 09/29/21 09/30/21 11:59 11:59 11:59 11:59 Output Total 1200 / 1200 450 / 450 Balance -1200 / -1200 -450 / -450 Weight 253 lb Microbiology Reports for the Last 24 Hours: Microbiology 09/28/21 18:16 Urine,Clean Catch Urine Culture - Preliminary - Constitutional no acute distress - *Routine HEENT Exam Head: Present: normocephalic Eye: Present: EOMI, PERRL ENT: Present: mucous membranes moist - *Routine Extremities Exam Present: edema. Absent: cyanosis, clubbing Comments: She has somewhat less edema today. - *Routine Neurological Exam Present: alert, oriented X3 She has normal reflexes
--- NOTE | 2021-09-29 14:03 | PC.NURSE ---
PT RECEIVED MAG BOLUS, TOLERATED WELL. MAG IS NOW AT 2GM/HR. PT HAS TOLERATED ADMINISTRATION WELL. NO C/O. B/P BEING MONITORED Q30 MINUTES AFTER BOLUS. UPON RE-ASSESSMENT, PT REFLEXES PRESENT. CLONUS PRESENT, 2 TO R FOOT AND 4 TO LEFT. SEIZURE PADS IN PLACE. U/O BEING MEASURED. VSS AT THIS TIME. WILL CONTINUE TO MONITOR.
[2021-09-29 14:19] LABS: Eosinophils % 1 % (0-3); Lymphocytes % 21 % (10-50); Monocytes % 7 % (2-9); Neutrophils % 70 % (42-76); Total Cells Counted 100
[2021-09-29 14:20] LABS: Platelet Estimate Normal; RBC Morphology Normal
[2021-09-29 15:05] LABS: Activated Partial Thrombo Time 26.7 seconds (22.8-30.6); INR 0.96 (0.9-1.1); Prothrombin Time 10.9 seconds (10.1-12.5)
[2021-09-29 15:12] LABS: Fibrinogen 248 mg/dL (229.9-363.5)
--- NOTE | 2021-09-29 17:19 | PC.NURSE ---
dr moran here. report given on vitals. reports to continue magnesium infusion r/v
[2021-09-29 18:25] LABS: OB Protein,Urine (DIP) Negative (Negative)
[2021-09-30] VITALS (8 sets, daily range): BP systolic 106–137; BP diastolic 52–78; PULSE 66–67; RESP 17; TEMP 36.6; O2SAT 97
[2021-09-30 03:44] LABS: OB Protein,Urine (DIP) Negative (Negative)
--- NOTE | 2021-09-30 05:02 | PC.NURSE ---
UPON ROUTINE REASSESSMENT, PT HAS BEEN RESTING WELL TONIGHT. SHE HAS HAD CONTINUOUS U/O MEASURED. CLONUS TO R AND LEFT FOOT PRESENT AT 2 BEATS. PT HAS HAD A HEADACHE THAT HAS BEEN MANAGED WELL WITH PRN MEDICATIONS. LUNGS CTAB AND BOWELS ACTIVE X4. IV PATENT AND INFUSING WELL TO RIGHT FOREARM. A&O X4. CALL RENDON IN REACH
[2021-09-30 07:31] LABS: Basophils # 0.1 K/mm3 (0-0.2); Basophils % 1.5 % (0.1-2.0); Eosinophils # 0.2 K/mm3 (0.0-0.4); Eosinophils % 3.1 % (0.1-12.0); Hemoglobin 9.4 g/dL (12.2-16.2); Lymphocytes # 1.3 K/mm3 (0.7-4.5); Lymphocytes % 21.2 % (10-50); Mean Corpuscular HGB Conc 32.3 g/dL (31.8-35.4); Mean Corpuscular Hemoglobin 30.8 pg (27.0-31.2); Mean Corpuscular Volume 95.5 fl (81-99); Mean Platelet Volume 7.4 fl (7.4-10.4); Monocytes # 0.4 K/mm3 (0.1-1.0); Monocytes % 5.9 % (1.7-9.3); Neutrophils # 4.2 K/mm3 (1.8-7.8); Neutrophils % 68.4 % (37.0-80.0); Platelet Count 385 K/mm3 (142-424); Red Blood Count 3.04 M/mm3 (4.20-5.40); Red Cell Distribution Width 14.4 % (11.5-17.5); White Blood Count 6.1 K/mm3 (4.8-10.8)
--- NOTE | 2021-09-30 07:34 | HMH.PNCARD ---
Subjective Date: 09/30/21 Time: 07:34 Principal diagnosis: Hypertension, Interval history: 26-year-old female lying in bed sleeping in no acute distress. She denies any chest pain, pressure or tightness overnight. Large volume of diuresis noted with nearly 4 L of negative output. Blood pressure significantly improved on combination of labetalol, nifedipine, IV magnesium and oral Lasix. Echocardiogram shows preserved ejection fraction with increased right ventricular systolic pressure at 40 mmHg. No significant valve disease noted. Exam Vital signs and Labs for Last 24 Hours: Temp Pulse Resp BP Pulse Ox 97.9 F 67 17 108/55 L 97 09/30/21 04:35 09/30/21 04:35 09/30/21 04:35 09/30/21 04:35 09/30/21 04:35 Laboratory Results - last 24 hr 09/29/21 12:56: Magnesium 1.8 09/29/21 12:56: WBC 7.3, RBC 3.08 L, Hgb 9.5 L D, Hct 29.3 L, MCV 95.1, MCH 30.9, MCHC 32.5, RDW 14.2, Plt Count 387, MPV 8.0, Neut % (Auto) 69.6, Lymph % (Auto) 21.2, [place] % (Auto) 6.0, Eos % (Auto) 1.7, Baso % (Auto) 1.5, Neut # (Auto) 5.1, Lymph # (Auto) 1.6, [place] # (Auto) 0.4, Eos # (Auto) 0.1, Baso # (Auto) 0.1 09/29/21 12:56: PT 10.9, INR 0.96, APTT 26.7, Fibrinogen 248 09/29/21 12:56: D-Dimer 3.41 H, Sodium 140, Potassium 3.1 L, Chloride 112 H, Carbon Dioxide 22, Anion Gap 9.1, BUN 9 D, Creatinine 0.70, Estimated Creat Clear 225, Estimated GFR 103, Est GFR ( Amer) 124, Glucose 112 H D, Uric Acid 6.6 H, Calcium 8.4, AST 69 H D, ALT 72 D 09/29/21 12:56: WBC 7.3, RBC 3.06 L, Hgb 9.5 L, Hct 28.8 L, MCV 94.0, MCH 31.0, MCHC 32.9, RDW 14.3, Plt Count 380, MPV 8.0, Neut % (Auto) 69.5, Lymph % (Auto) 21.8, [place] % (Auto) 6.0, Eos % (Auto) 2.1, Baso % (Auto) 0.6, Neut # (Auto) 5.1, Lymph # (Auto) 1.6, [place] # (Auto) 0.4, Eos # (Auto) 0.2, Baso # (Auto) 0.1, Total Counted 100, Neutrophils % (Manual) 70, Lymphocytes % (Manual) 21, Monocytes % (Manual) 7, Eosinophils % (Manual) 1, Basophils % (Manual) 1.0, Platelet Estimate Normal, RBC Morphology Normal 09/29/21 16:10: Urine Protein Negative 09/30/21 03:30: Urine Protein Negative 09/30/21 06:54: WBC 6.1, RBC 3.04 L, Hgb 9.4 L, Hct 29.0 L, MCV 95.5, MCH 30.8, MCHC 32.3, RDW 14.4, Plt Count 385, MPV 7.4, Neut % (Auto) 68.4, Lymph % (Auto) 21.2, [place] % (Auto) 5.9, Eos % (Auto) 3.1, Baso % (Auto) 1.5, Neut # (Auto) 4.2, Lymph # (Auto) 1.3, [place] # (Auto) 0.4, Eos # (Auto) 0.2, Baso # (Auto) 0.1 09/30/21 07:00: D-Dimer 2.10 H I & O for Last 24 hours: Intake & Output 09/27/21 09/28/21 09/29/21 09/30/21 11:59 11:59 11:59 11:59 Intake Total 1600 / 1600 Output Total 1200 / 1200 4200 / 4200 Balance -1200 / -1200 -2600 / -2600 Weight 253 lb Microbiology Reports for the Last 24 Hours: Microbiology 09/28/21 18:16 Urine,Clean Catch Urine Culture - Preliminary - *Routine Respiratory Exam Present: CTA bilaterally - *Routine Cardiovascular Exam Present: RRR Progress Note: A&P (1) hypertension Status: Acute (2) Hemorrhoid Status: Acute (3) Constipation Status: Acute (4) Edema, peripheral Status: Acute (5) Chronic hypertension affecting Status: Acute Assessment and Plan for All Diagnoses:: 1. Cardiac status stable. Okay for discharge from cardiology standpoint when okay with Dr. Reyes. 2. Recommend continuing Lasix 40 mg twice daily until renal function shows evidence of mild dehydration. Will order supplemental potassium due to potassium of 3.1. 3. Hypertension, significantly improved. Wean labetalol and nifedipine as tolerated. Recommend follow-up in our office in 1 to 2 weeks.
[2021-09-30 07:35] LABS: Activated Partial Thrombo Time 27.3 seconds (22.8-30.6); Fibrinogen 178 mg/dL (229.9-363.5); INR 0.93 (0.9-1.1); Prothrombin Time 10.6 seconds (10.1-12.5)
[2021-09-30 10:53] LABS: Alanine Aminotransferase 108 U/L (12-78); Anion Gap 6.9 mEq/L (5-15); Aspartate Amino Transferase 81 U/L (14-36); Blood Urea Nitrogen 5 mg/dl (7-17); Calcium 6.9 mg/dl (8.4-10.2); Carbon Dioxide 25 mmol/L (22.0-30.0); Chloride 110 mmol/L (98-107); Creatinine Clearance Estimated 262 mL/min (50-200); Estimated Glomerular Filt Rate 123 ml/min (>60); GFR (African American) 149 ML/MIN (>60); Glucose 106 mg/dl (74-100); Sodium 139 mmol/L (136-145)
[2021-09-30 10:55] LABS: Potassium 2.9 mmoL/L (3.5-5.1)
--- NOTE | 2021-09-30 11:05 | HMH.ACPN2 ---
Internal Medicine - PN: Subj *Date: 09/30/21 *Time: 11:05 Interval history: She is doing a little better this morning. She feels better. Her blood pressure is much improved. She still has a headache. We have given her Tylenol as well as ibuprofen and this has not helped. Were going to try some Fioricet and see if this helps. She is on magnesium sulfate 2 g an hour. Exam Vital signs and Labs for Last 24 Hours: Temp Pulse Resp BP Pulse Ox 97.9 F 67 17 108/56 L 97 09/30/21 04:35 09/30/21 04:35 09/30/21 04:35 09/30/21 08:00 09/30/21 10:14 Laboratory Results - last 24 hr 09/29/21 12:56: Magnesium 1.8 09/29/21 12:56: WBC 7.3, RBC 3.08 L, Hgb 9.5 L D, Hct 29.3 L, MCV 95.1, MCH 30.9, MCHC 32.5, RDW 14.2, Plt Count 387, MPV 8.0, Neut % (Auto) 69.6, Lymph % (Auto) 21.2, [place] % (Auto) 6.0, Eos % (Auto) 1.7, Baso % (Auto) 1.5, Neut # (Auto) 5.1, Lymph # (Auto) 1.6, [place] # (Auto) 0.4, Eos # (Auto) 0.1, Baso # (Auto) 0.1 09/29/21 12:56: PT 10.9, INR 0.96, APTT 26.7, Fibrinogen 248 09/29/21 12:56: D-Dimer 3.41 H, Sodium 140, Potassium 3.1 L, Chloride 112 H, Carbon Dioxide 22, Anion Gap 9.1, BUN 9 D, Creatinine 0.70, Estimated Creat Clear 225, Estimated GFR 103, Est GFR ( Amer) 124, Glucose 112 H D, Uric Acid 6.6 H, Calcium 8.4, AST 69 H D, ALT 72 D 09/29/21 12:56: WBC 7.3, RBC 3.06 L, Hgb 9.5 L, Hct 28.8 L, MCV 94.0, MCH 31.0, MCHC 32.9, RDW 14.3, Plt Count 380, MPV 8.0, Neut % (Auto) 69.5, Lymph % (Auto) 21.8, [place] % (Auto) 6.0, Eos % (Auto) 2.1, Baso % (Auto) 0.6, Neut # (Auto) 5.1, Lymph # (Auto) 1.6, [place] # (Auto) 0.4, Eos # (Auto) 0.2, Baso # (Auto) 0.1, Total Counted 100, Neutrophils % (Manual) 70, Lymphocytes % (Manual) 21, Monocytes % (Manual) 7, Eosinophils % (Manual) 1, Basophils % (Manual) 1.0, Platelet Estimate Normal, RBC Morphology Normal 09/29/21 16:10: Urine Protein Negative 09/30/21 03:30: Urine Protein Negative 09/30/21 06:54: WBC 6.1, RBC 3.04 L, Hgb 9.4 L, Hct 29.0 L, MCV 95.5, MCH 30.8, MCHC 32.3, RDW 14.4, Plt Count 385, MPV 7.4, Neut % (Auto) 68.4, Lymph % (Auto) 21.2, [place] % (Auto) 5.9, Eos % (Auto) 3.1, Baso % (Auto) 1.5, Neut # (Auto) 4.2, Lymph # (Auto) 1.3, [place] # (Auto) 0.4, Eos # (Auto) 0.2, Baso # (Auto) 0.1 09/30/21 07:00: PT 10.6, INR 0.93, APTT 27.3, Fibrinogen 178 L 09/30/21 07:00: D-Dimer 2.10 H, Sodium 139, Potassium 2.9 L*, Chloride 110 H, Carbon Dioxide 25, Anion Gap 6.9, BUN 5 L D, Creatinine 0.60, Estimated Creat Clear 262, Estimated GFR 123, Est GFR ( Amer) 149 D, Glucose 106 H, Uric Acid 6.0, Calcium 6.9 L, AST 81 H, ALT 108 H D I & O for Last 24 hours: Intake & Output 09/27/21 09/28/21 09/29/21 09/30/21 11:59 11:59 11:59 11:59 Intake Total 1600 / 1600 Output Total 1200 / 1200 4200 / 4200 Balance -1200 / -1200 -2600 / -2600 Weight 253 lb Microbiology Reports for the Last 24 Hours: Microbiology 09/28/21 18:16 Urine,Clean Catch Urine Culture - Preliminary - Constitutional no acute distress - *Routine HEENT Exam Head: Present: normocephalic Eye: Present: EOMI, PERRL ENT: Present: mucous membranes moist - *Routine Cardiovascular Exam Present: RRR - *Routine Abdominal Exam Present: soft, normoactive bowel sounds. Absent: tenderness Assessment and Plan (1) hypertension Status: Acute Category: Medical Code(s): O16.5 - Unspecified maternal hypertension, complicating the puerperium (2) Hemorrhoid Status: Acute Category: Medical Code(s): K64.9 - Unspecified hemorrhoids (3) Constipation Status: Acute Category: Medical Code(s): K59.00 - Constipation, unspecified (4) Edema, peripheral Status: Acute Category: Medical Code(s): R60.9 - Edema, unspecified (5) Chronic hypertension affecting Status: Acute Category: Medical Code(s): O10.919 - Unspecified pre-existing hypertension complicating , unspecified trimester (6) Hypokalemia Status: Acute Category: Medical Code(s
--- NOTE | 2021-09-30 14:30 | PC.NURSE ---
Mag Sulfate discontinued per 's order.
--- NOTE | 2021-09-30 16:31 | HMH.DCSUM ---
General - General Admission date:: 09/29/21 Discharge date: 09/30/21 HPI HPI: She is a 26-year-old 2 para 2 who is 5 days post vaginal delivery. She complains of increased blood pressure. She had blood pressure issues throughout the and has chronic hypertension. She had been taking labetalol 400 mg twice daily as well as nifedipine 90 mg XL. We stopped the labetalol after her delivery since her blood pressure was normal. She had some significant swelling as well in her feet and we started her on Lasix 20 mg twice daily. Now she complains of a mild headache for the last few days as well as not having had a bowel movement. She also has difficulty voiding she says. She says she feels like she needs to void all the time. In my office her blood pressure was 160/105. This was done manually by me. Her reflexes are flat. As result of the increased blood pressure we have elected to admit her overnight for observation. She has 2+ edema. Hospital Course Hospital Course: She was continue with her nifedipine and restarted on labetalol 400 mg twice daily. Since her blood pressure was elevated we elected to start magnesium sulfate. She has done 24 hours of magnesium sulfate at 2 g an hour along with a 4 g bolus. Her blood pressures have stabilized. She initially had elevated uric acid at 6.6 and it is now come down to 6.0. Her platelets have remained stable. Her liver function tests have elevated slightly to the 120 range. We were concerned about cardiomyopathy because her BNP was elevated at 495 and she had an echocardiogram and was seen by cardiology. She does not have cardiomyopathy. Her ejection fraction was normal. She had some slightly elevated pressures in her atria. She was started on 40 mg of Lasix daily. This did cause her potassium to drop to 2.9 and she is on potassium replacement. She is going to be discharged home this afternoon and will follow up with me in approximately 48 hours. She will get blood work for her PI at that time again as well. She will continue with her nifedipine 90 mg p.o. daily as well as labetalol 400 mg twice daily. She was given a prescription for potassium to take 20 mEq daily. She has Lasix 20 mg at home and will continue this prescription for a total of 10 days. Her condition on discharge is stable and improved. As I said she will follow up with me in 48 hours. Objective Vital signs: Temp Pulse Resp BP Pulse Ox 97.9 F 67 17 110/78 97 09/30/21 04:35 09/30/21 04:35 09/30/21 04:35 09/30/21 14:54 09/30/21 10:14 no acute distress - *Routine HEENT Exam Head: Present: normocephalic Eye: Present: EOMI, PERRL ENT: Present: mucous membranes moist Results Labs on day of discharge: Labs from last 24 hours 09/30/21 09/30/21 09/30/21 07:00 07:00 06:54 WBC 6.1 RBC 3.04 L Hgb 9.4 L Hct 29.0 L MCV 95.5 MCH 30.8 MCHC 32.3 RDW 14.4 Plt Count 385 MPV 7.4 Neut % (Auto) 68.4 Lymph % (Auto) 21.2 [place] % (Auto) 5.9 Eos % (Auto) 3.1 Baso % (Auto) 1.5 Neut # (Auto) 4.2 Lymph # (Auto) 1.3 [place] # (Auto) 0.4 Eos # (Auto) 0.2 Baso # (Auto) 0.1 PT 10.6 INR 0.93 APTT 27.3 Fibrinogen 178 L D-Dimer 2.10 H Sodium 139 Potassium 2.9 L* Chloride 110 H Carbon Dioxide 25 Anion Gap 6.9 BUN 5 L D Creatinine 0.60 Estimated Creat Clear 262 Estimated GFR 123 Est GFR ( Amer) 149 D Glucose 106 H Uric Acid 6.0 Calcium 6.9 L AST 81 H ALT 108 H D Urine Protein 09/30/21 09/29/21 03:30 16:10 WBC RBC Hgb Hct MCV MCH MCHC RDW Plt Count MPV Neut % (Auto) Lymph % (Auto) [place] % (Auto) Eos % (Auto) Baso % (Auto) Neut # (Auto) Lymph # (Auto) [place] # (Auto) Eos # (Auto) Baso # (Auto) PT INR APTT Fibrinogen D-Dimer Sodium Potassium Chloride Carbon Diox
--- NOTE | 2021-10-02 12:50 | CARE MANAGER ---
Contacted patient regarding follow up to hospital discharge. Patient states her blood pressure is still elevated and Dr. Foster placed her on additional antihypertensive medication today. Instructed her to follow up with ED/MD if headache becomes worse or if she begins to see spots. THey are going to schedule appt. with cardiology for next week. TINY Soto
== END 2021-09-30 17:54 | disposition home or self-care (01) | DRG 776 ==
PROVIDERS: Admitting Provider Nurse Practitioner Obstetrics & Gynecology; PCP Emergency Medicine; Visit Provider Nurse Practitioner Obstetrics & Gynecology
DX: O10.03 Pre-existing essential hypertension complicating the puerperium (principal); O87.2 Hemorrhoids in the puerperium; E87.6 Hypokalemia; O13.5 Gestational [pregnancy-induced] hypertension without significant proteinuria, complicating the puerperium; K59.00 Constipation, unspecified; O12.05 Gestational edema, complicating the puerperium
CPT/HCPCS: 80048; 81001; 81002; 83735; 83880; 84450; 84460; 84550; 85007; 85014; 85018; 85025; 85048; 85049; 85378; 85384; 85610; 85730; 87086; 87088; 87186; 93005; 93306; C9803; G0378; U0003; U0005

== ENCOUNTER → 2021-10-02 10:25 | Outpatient (CLI) | payer OTHER, SELFPAY ==
[2021-10-02 10:48] LABS: Basophils % 0.5 % (0.1-2.0); Eosinophils # 0.2 K/mm3 (0.0-0.4); Eosinophils % 2.7 % (0.1-12.0); Hematocrit 30.2 % (37.0-47.0); Hemoglobin 9.4 g/dL (12.2-16.2); Lymphocytes % 25.8 % (10-50); Mean Corpuscular HGB Conc 31.1 g/dL (31.8-35.4); Mean Corpuscular Hemoglobin 30.5 pg (27.0-31.2); Mean Corpuscular Volume 97.8 fl (81-99); Monocytes # 0.5 K/mm3 (0.1-1.0); Monocytes % 6.1 % (1.7-9.3); Neutrophils # 5.1 K/mm3 (1.8-7.8); Neutrophils % 64.9 % (37.0-80.0); Platelet Count 484 K/mm3 (142-424); Red Blood Count 3.09 M/mm3 (4.20-5.40); Red Cell Distribution Width 14.4 % (11.5-17.5); White Blood Count 7.9 K/mm3 (4.8-10.8)
[2021-10-02 11:11] LABS: D-Dimer 1.02 ug/mL (0.0-0.5)
[2021-10-02 11:21] LABS: Chloride 112 mmol/L (98-107); Sodium 140 mmol/L (136-145)
[2021-10-02 11:22] LABS: Potassium 3.7 mmoL/L (3.5-5.1)
[2021-10-02 11:24] LABS: Alanine Aminotransferase 54 U/L (12-78); Aspartate Amino Transferase 22 U/L (14-36); Blood Urea Nitrogen 11 mg/dl (7-17); Estimated Glomerular Filt Rate 88 ml/min (>60); GFR (African American) 107 ML/MIN (>60)
[2021-10-02 11:25] LABS: Activated Partial Thrombo Time 28.2 seconds (22.8-30.6); Anion Gap 10.7 mEq/L (5-15); Calcium 8.4 mg/dl (8.4-10.2); Carbon Dioxide 21 mmol/L (22.0-30.0); Glucose 81 mg/dl (74-100); INR 0.98 (0.9-1.1); Prothrombin Time 11.1 seconds (10.1-12.5)
[2021-10-02 11:34] LABS: NT Pro Brain Natriuretic Pep. 231 pg/mL (0-125)
[2021-10-02 11:40] LABS: Fibrinogen 392 mg/dL (229.9-363.5)
== END ==
PROVIDERS: Visit Provider Nurse Practitioner Obstetrics & Gynecology
DX: I10 Essential (primary) hypertension (principal)
CPT/HCPCS: 36415; 80048; 83880; 84450; 84460; 84550; 85025; 85378; 85384; 85610; 85730

== ENCOUNTER → 2021-12-29 11:05 | Outpatient (CLI) | payer OTHER, SELFPAY ==
--- NOTE | 2021-12-29 11:05 | US_ITS ---
FINAL REPORT CLINICAL HISTORY: abnormal bleeding; patient had Nexplanon placed in middle of November 2021, patient has had bleeding since 12/04/2021 FINDINGS: Transvaginal sonographic images of the pelvis were obtained. The uterus measures 9 x 6.3 x 4.7 cm. The endometrium measures 4 mm, which is within normal limits. No uterine mass is identified. The right ovary measures 3.3 cm in length and left ovary measures 3.4 cm in length. Normal blood flow seen to the ovaries. There is a 2 cm right ovarian cyst. There is no evidence of free fluid. IMPRESSION: Right ovarian cyst. Reviewed, Interpreted and Dictated by Tom Jones III, MD Transcribed by Pinky Lima Authenticated and [facility]
== END ==
PROVIDERS: PCP Emergency Medicine; Visit Provider Nurse Practitioner Obstetrics & Gynecology
DX: N93.9 Abnormal uterine and vaginal bleeding, unspecified (principal)
CPT/HCPCS: 76830

== ENCOUNTER 2022-06-07 17:25 | Emergency (ER) | payer OTHER, SELFPAY ==
--- NOTE | 2022-06-07 19:08 | EXP.UTC ---
Discharge Plan Disposition Patient Disposition: Home, Self-Care Condition: Good Prescriptions Prescriptions: New benzonatate [benzonatate] 100 mg capsule 100 mg PO TIDP PRN (Reason: Cough) Qty: 30 0RF ondansetron 4 mg Tablet,Disintegrating 4 mg PO Q8H PRN (Reason: Nausea) Qty: 12 0RF No Action lisinopril 10 mg tablet 10 mg PO DAILY Qty: 30 2RF citalopram [Celexa] 10 mg tablet 10 mg PO DAILY Qty: 30 2RF lisinopril 20 mg tablet 20 mg PO DAILY Qty: 30 5RF Nexplanon 68 mg implant SUBDERMAL estradiol [Estrace] 2 mg tablet 2 mg PO DAILY Qty: 30 4RF nifedipine 90 mg tablet extended release 24 hr 90 mg PO DAILY Qty: 30 0RF ondansetron 4 mg tablet,disintegrating 4 mg PO Q8H PRN (Reason: nausea and vomiting) Qty: 20 0RF promethazine 12.5 mg tablet 12.5 mg PO Q6H PRN (Reason: nausea and vomiting) Qty: 30 0RF (DME) COVID-19 antigen test Kit See Rx Instructions .Route Qty: 1 0RF Rx Instructions: As directed Referrals Follow up/Referrals: Fernando Ledesma MD [Primary Care Provider] - See instructions Activity Restrictions/Add. Instructions Additional Instructions/Restrictions: Drink plenty of fluids. Take tylenol or ibuprofen for pain or fever. Take the medications as directed. Follow up with your regular doctor. GO TO THE ER FOR ANY WORSENING SYMPTOMS Clinical Impressions Clinical Impression: Viral syndrome Instructions Patient Instructions: DI for Viral Syndrome Discharge ED Provider: Rubio Pitt [facility] General Stated complaint: headache and congestion Time Seen by Provider: 06/07/22 19:07 History of Present Illness Provider Complaint: She states that for the past 2 days she has had sore throat, chills, body aches and low grade fever. Related Data Home Medications Medication Instructions Recorded Confirmed etonogestrel 68 mg subdermal subdermal 12/18/21 12/18/21 implant (Nexplanon) Previous Rx's Medication Instructions Recorded lisinopril 10 mg tablet 10 mg PO DAILY #30 tabs 10/02/21 citalopram 10 mg tablet (Celexa) 10 mg PO DAILY #30 tabs 11/11/21 lisinopril 20 mg tablet 20 mg PO DAILY #30 tabs 11/17/21 estradiol 2 mg tablet (Estrace) 2 mg PO DAILY #30 tabs 12/28/21 nifedipine 90 mg tablet,extended 90 mg PO DAILY Hypertension #30 01/22/22 release 24 hr tabs ondansetron 4 mg disintegrating 4 mg PO Q8H PRN nausea and 01/22/22 tablet vomiting #20 tabs promethazine 12.5 mg tablet 12.5 mg PO Q6H PRN nausea and 01/22/22 vomiting #30 tabs COVID-19 antigen test #1 ea 03/08/22 benzonatate 100 mg capsule 100 mg PO TIDP PRN Cough #30 caps 06/07/22 ondansetron 4 mg disintegrating 4 mg PO Q8H PRN Nausea #12 tabs 06/07/22 tablet Allergies Allergy/AdvReac Type Severity Reaction Status Date / Time adhesive [ADHESIVE] Allergy Unknown SWELLING Verified 06/07/22 19:31 PFSH PFS Social History Smoking Status: Former smoker second hand exposure: Yes alcohol intake: never substance use type: denies use current occupational status: unemployed Travel in the last 8 weeks: None household members: family housing: house number of children: 1 current occupational exposures/hazards: No ROS Obtained: Yes All systems reviewed & no additional complaints except as documented Constitutional Constitutional: Reports chills and Reports fever(s) Eyes Eyes: Denies eye discharge ENT Ears, Nose, Mouth, and Throat: Reports as per HPI Cardiovascular Cardiovascular: Denies chest pain Respiratory Respiratory: Denies chest congestion and Reports cough Gastrointestinal Gastrointestingal: Reports nausea; Denies abdominal pain, 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, cramping, diarrhea or vomiting Musculoskeletal Musculoskeletal: Denies arthralgias Integumentary/Breasts Skin/Breast: Denies rash Neurologic Neurologic: Denies paresthesias Physical Exam General General appearan
[2022-06-07 19:30] VITALS: BP 112/63; PULSE 90; RESP 17; TEMP 36.7; O2SAT 100; BMI 36.3
[2022-06-07 19:45] LABS: UTC Influenza A Antigen Negative (Negative)
[2022-06-07 19:46] LABS: UTC Influenza B Antigen Negative (Negative)
[2022-06-07 20:01] VITALS: BP 112/63; PULSE 90; RESP 17; TEMP 36.7
[2022-06-07 20:08] LABS: Adenovirus,PCR Not Detected (NotDetected); Bordetella Pertussis Not Detected (NotDetected); Chlamydophila Pneumoniae, PCR Not Detected (NotDetected); Coronavirus 19, PCR Not Detected (NotDetected); Coronavirus 229E Not Detected (NotDetected); Coronavirus NL63 Not Detected (NotDetected); Coronavirus OC43 Not Detected (NotDetected); Coronovirus HKU1,PCR Not Detected (NotDetected); Human Metapneumovirus Not Detected (NotDetected); Influenza A, PCR Not Detected (NotDetected); Influenza AH1, 2009 Not Detected (NotDetected); Influenza AH1, PCR Not Detected (NotDetected); Influenza AH3,PCR Not Detected (NotDetected); Influenza B, PCR Not Detected (NotDetected); Mycoplasma Pneumoniae, PCR Not Detected (NotDetected); Parainfluenza 1, PCR Not Detected (NotDetected); Parainfluenza 2, PCR Not Detected (NotDetected); Parainfluenza 3, PCR Not Detected (NotDetected); Parainfluenza 4, PCR Not Detected (NotDetected); Respiratory Syncytial Virus Not Detected (NotDetected)
[2022-06-09 04:10] LABS: Rhinovirus/Enterovirus Detected (NotDetected)
== END 2022-06-07 20:02 | disposition home or self-care (01) ==
PROVIDERS: Emergency Provider Nurse Practitioner Family; PCP Internal Medicine Adolescent Medicine
DX: R51.9 Headache, unspecified (principal); R09.89 Other specified symptoms and signs involving the circulatory and respiratory systems; B34.1 Enterovirus infection, unspecified
CPT/HCPCS: 87581; 87632; 87798; 87804; 99212; C9803; G0463; U0003; U0005

== ENCOUNTER 2022-08-27 16:11 | Emergency (ER) | payer OTHER, SELFPAY ==
[2022-08-27 16:25] VITALS: PULSE 109; RESP 22; TEMP 36.8; O2SAT 97; BMI 34.2
--- NOTE | 2022-08-27 16:37 | EXP.UTC ---
Discharge Plan Disposition Patient Disposition: Home, Self-Care Condition: Good Prescriptions Prescriptions: New gentamicin 0.3 % drops 1 drp ophthalmic (eye) Q4H 7 Days Qty: 5 0RF Rx Instructions: right eye as directed No Action lisinopril 10 mg tablet 10 mg PO DAILY Qty: 30 2RF citalopram [Celexa] 10 mg tablet 10 mg PO DAILY Qty: 30 2RF lisinopril 20 mg tablet 20 mg PO DAILY Qty: 30 5RF Nexplanon 68 mg implant SUBDERMAL estradiol [Estrace] 2 mg tablet 2 mg PO DAILY Qty: 30 4RF nifedipine 90 mg tablet extended release 24 hr 90 mg PO DAILY Qty: 30 0RF ondansetron 4 mg tablet,disintegrating 4 mg PO Q8H PRN (Reason: nausea and vomiting) Qty: 20 0RF promethazine 12.5 mg tablet 12.5 mg PO Q6H PRN (Reason: nausea and vomiting) Qty: 30 0RF (DME) COVID-19 antigen test Kit See Rx Instructions .Route Qty: 1 0RF Rx Instructions: As directed benzonatate [benzonatate] 100 mg capsule 100 mg PO TIDP PRN (Reason: Cough) Qty: 30 0RF ondansetron 4 mg Tablet,Disintegrating 4 mg PO Q8H PRN (Reason: Nausea) Qty: 12 0RF Referrals Follow up/Referrals: Fernando Ledesma MD [Primary Care Provider] - See instructions Activity Restrictions/Add. Instructions Additional Instructions/Restrictions: Use drops as prescribed FOllow up with Eye Doctor or Family Doctor if no improvement or any worsening of symptoms Return if neededd Wash hands well before and after applying drops to eyes Cool compresses may help with iritaion Clinical Impressions Clinical Impression: Conjunctivitis Instructions Patient Instructions: Conjunctivitis, DI for Conjunctivitis Discharge ED Provider: Lay Lucas [facility] [place] HPI General Stated complaint: pOSSIBLE pINK EYE Time Seen by Provider: 08/27/22 16:37 History of Present Illness Provider Complaint: Patient states that her kids had pink eye last week and she woke up this morning with her right eye matted shut States that today she has continued to have drainage and redness to her eye so she came in Related Data Home Medications Medication Instructions Recorded Confirmed etonogestrel 68 mg subdermal subdermal 12/18/21 12/18/21 implant (Nexplanon) Previous Rx's Medication Instructions Recorded lisinopril 10 mg tablet 10 mg PO DAILY #30 tabs 10/02/21 citalopram 10 mg tablet (Celexa) 10 mg PO DAILY #30 tabs 11/11/21 lisinopril 20 mg tablet 20 mg PO DAILY #30 tabs 11/17/21 estradiol 2 mg tablet (Estrace) 2 mg PO DAILY #30 tabs 12/28/21 nifedipine 90 mg tablet,extended 90 mg PO DAILY Hypertension #30 01/22/22 release 24 hr tabs ondansetron 4 mg disintegrating 4 mg PO Q8H PRN nausea and 01/22/22 tablet vomiting #20 tabs promethazine 12.5 mg tablet 12.5 mg PO Q6H PRN nausea and 01/22/22 vomiting #30 tabs COVID-19 antigen test #1 ea 03/08/22 benzonatate 100 mg capsule 100 mg PO TIDP PRN Cough #30 caps 06/07/22 ondansetron 4 mg disintegrating 4 mg PO Q8H PRN Nausea #12 tabs 06/07/22 tablet gentamicin 0.3 % eye drops 1 drp ophthalmic (eye) Q4H 7 days 08/27/22 #5 mL Allergies Allergy/AdvReac Type Severity Reaction Status Date / Time adhesive [ADHESIVE] Allergy Unknown SWELLING Verified 06/07/22 19:31 [facility] Disclaimer: The information contained in this section may have been updated after the patient was seen, as this information can be updated by other users. Medical History (Updated 08/27/22 @ 16:41 by Lay Lucas APRN) Hypertension Surgical History (Updated 08/27/22 @ 16:38 by Akila Guerra RN) History of tonsillectomy Social History Smoking Status: Former smoker second hand exposure: Yes alcohol intake: never substance use type: denies use current occupational status: unemployed Travel in the last 8 weeks: None household members: family housing: house number of children: 1 current occupational exposures
[2022-08-27 17:04] VITALS: BP 0/0; PULSE 109; RESP 22; TEMP 36.8; O2SAT 97
== END 2022-08-27 17:06 | disposition home or self-care (01) ==
PROVIDERS: Emergency Provider Nurse Practitioner; PCP Internal Medicine Adolescent Medicine
DX: H10.9 Unspecified conjunctivitis (principal)
CPT/HCPCS: 99212; 99213; G0463

== ENCOUNTER 2022-12-22 21:13 | Emergency (ER) | payer OTHER, SELFPAY ==
[2022-12-22 21:14] VITALS: BP 135/94; PULSE 83; RESP 16; TEMP 36.8; O2SAT 99; BMI 30.7
[2022-12-22 21:23] VITALS: BP 135/94; PULSE 83; RESP 20; O2SAT 100
--- NOTE | 2022-12-22 21:27 | XR_ITS ---
PROCEDURE INFORMATION: Exam: XR Right Foot Exam date and time: 12/22/2022 9:47 PM Age: 27 years old Clinical indication: Foot; Patient HX: Nki, C/O right ankle pain/swelling TECHNIQUE: Imaging protocol: Radiologic exam of the right foot. Views: 3 or more views. COMPARISON: CR [id number] XR foot RT min 3V 01/25/2018 12:28 PM FINDINGS: Bones/joints: Small enthesophytes involving the calcaneus. Soft tissues: Mild soft tissue swelling of the right ankle without acute osseous abnormality. IMPRESSION: Mild soft tissue swelling of the right ankle without acute osseous abnormality.
--- NOTE | 2022-12-22 21:27 | XR_ITS ---
PROCEDURE INFORMATION: Exam: XR Right Ankle Exam date and time: 12/22/2022 9:45 PM Age: 27 years old Clinical indication: Patient HX: Nki, C/O right ankle pain/swelling TECHNIQUE: Imaging protocol: Radiologic exam of the right ankle. Views: 3 or more views. COMPARISON: CR [id number] VIEWS 06/28/2017 8:41 PM FINDINGS: Bones/joints: See Soft tissues finding. Soft tissues: Mild soft tissue swelling of the ankle without acute osseous abnormality. IMPRESSION: Mild soft tissue swelling of the ankle without acute osseous abnormality.
[2022-12-22 21:30] VITALS: BP 139/97; PULSE 80; RESP 20; O2SAT 98
--- NOTE | 2022-12-22 21:39 | HMH.EDLOEX ---
Discharge Plan Disposition Patient Disposition: Home, Self-Care Prescriptions Prescriptions: New meloxicam 15 mg tablet 15 mg PO DAILY Qty: 7 0RF No Action lisinopril 10 mg tablet 10 mg PO DAILY Qty: 30 2RF citalopram [Celexa] 10 mg tablet 10 mg PO DAILY Qty: 30 2RF lisinopril 20 mg tablet 20 mg PO DAILY Qty: 30 5RF Nexplanon 68 mg implant SUBDERMAL estradiol [Estrace] 2 mg tablet 2 mg PO DAILY Qty: 30 4RF nifedipine 90 mg tablet extended release 24 hr 90 mg PO DAILY Qty: 30 0RF ondansetron 4 mg tablet,disintegrating 4 mg PO Q8H PRN (Reason: nausea and vomiting) Qty: 20 0RF promethazine 12.5 mg tablet 12.5 mg PO Q6H PRN (Reason: nausea and vomiting) Qty: 30 0RF (DME) COVID-19 antigen test Kit See Rx Instructions .Route Qty: 1 0RF Rx Instructions: As directed benzonatate [benzonatate] 100 mg capsule 100 mg PO TIDP PRN (Reason: Cough) Qty: 30 0RF ondansetron 4 mg Tablet,Disintegrating 4 mg PO Q8H PRN (Reason: Nausea) Qty: 12 0RF gentamicin 0.3 % drops 1 drp ophthalmic (eye) Q4H 7 Days Qty: 5 0RF Rx Instructions: right eye as directed Referrals Follow up/Referrals: Camacho Hoffmann MD [Primary Care Provider] - See instructions Scarlet Soto DPM [Staff Physician] - See instructions Clinical Impressions Clinical Impression: Ankle sprain and strain Stand Alone Forms Stand Alone Forms: Work/School Release Instructions Patient Instructions: DI for Ankle Sprain Discharge ED Provider: Tahira (ED)Camacho Lower Extremity Injury HPI General Chief Complaint: Extremity Injury, Lower Stated Complaint: right ankle pain, unknown origin Time Seen by Provider: 12/22/22 21:39 Mode of Arrival: Ambulatory Source of Information: Patient and Medical Record Limitations: No Limitations Description of Symptoms (Recalled from ER Triage Doc. by RN): pt c/o rt ankle pain x 3 days. pt denies any trauma or fall History of Present Illness HPI Narrative: rt ankle pain with sts over the last few days w/o trauma or gu or febrile illness -no other jt swelling complaint: ankle injury Onset (ago): day(s) Injury: Right: ankle Type of Injury: unknown Severity: moderate Exacerbating factors: weight bearing and movement Associated symptoms: swelling and able to partially bear weight Other symptoms: none Related Data Home Medications Medication Instructions Recorded Confirmed etonogestrel 68 mg subdermal subdermal 12/18/21 12/18/21 implant (Nexplanon) Previous Rx's Medication Instructions Recorded lisinopril 10 mg tablet 10 mg PO DAILY #30 tabs 10/02/21 citalopram 10 mg tablet (Celexa) 10 mg PO DAILY #30 tabs 11/11/21 lisinopril 20 mg tablet 20 mg PO DAILY #30 tabs 11/17/21 estradiol 2 mg tablet (Estrace) 2 mg PO DAILY #30 tabs 12/28/21 nifedipine 90 mg tablet,extended 90 mg PO DAILY Hypertension #30 01/22/22 release 24 hr tabs ondansetron 4 mg disintegrating 4 mg PO Q8H PRN nausea and 01/22/22 tablet vomiting #20 tabs promethazine 12.5 mg tablet 12.5 mg PO Q6H PRN nausea and 01/22/22 vomiting #30 tabs COVID-19 antigen test #1 ea 03/08/22 benzonatate 100 mg capsule 100 mg PO TIDP PRN Cough #30 caps 06/07/22 ondansetron 4 mg disintegrating 4 mg PO Q8H PRN Nausea #12 tabs 06/07/22 tablet gentamicin 0.3 % eye drops 1 drp ophthalmic (eye) Q4H 7 days 08/27/22 #5 mL meloxicam 15 mg tablet 15 mg PO DAILY #7 tabs 12/22/22 Allergies Allergy/AdvReac Type Severity Reaction Status Date / Time adhesive [ADHESIVE] Allergy Unknown SWELLING Verified 06/07/22 19:31 [facility] Disclaimer: The information contained in this section may have been updated after the patient was seen, as this information can be updated by other users. Medical History (Updated 12/22/22 @ 23:05 by Camacho PERES)MD) Hypertension Surgical History (Updated 08/27/22 @ 16:38 by Akila Guerra RN) History of tonsillectomy [facility]
[2022-12-22 23:00] VITALS: BP 134/67; PULSE 79; RESP 18; TEMP 36.8; O2SAT 99
== END 2022-12-22 23:12 | disposition home or self-care (01) ==
PROVIDERS: Emergency Provider Emergency Medicine; PCP Emergency Medicine
DX: S96.911A Strain of unspecified muscle and tendon at ankle and foot level, right foot, initial encounter (principal); S93.401A Sprain of unspecified ligament of right ankle, initial encounter; I10 Essential (primary) hypertension; X58.XXXA Exposure to other specified factors, initial encounter
CPT/HCPCS: 73610; 73630; 99284

== ENCOUNTER 2023-02-10 18:18 | Emergency (ER) | payer OTHER, SELFPAY ==
[2023-02-10 18:19] VITALS: BP 138/81; PULSE 86; RESP 16; TEMP 36.7; O2SAT 99; BMI 37.1
--- NOTE | 2023-02-10 19:00 | EXP.UTC ---
Discharge Plan Disposition Patient Disposition: Home, Self-Care Condition: Good Prescriptions Prescriptions: New ibuprofen [IBU] 800 mg tablet 800 mg PO Q8HP PRN (Reason: Moderate Pain) Qty: 30 0RF promethazine 25 mg tablet 25 mg PO TID PRN (Reason: nausea and vomiting) Qty: 15 0RF No Action lisinopril 10 mg tablet 10 mg PO DAILY Qty: 30 2RF citalopram [Celexa] 10 mg tablet 10 mg PO DAILY Qty: 30 2RF lisinopril 20 mg tablet 20 mg PO DAILY Qty: 30 5RF Nexplanon 68 mg implant SUBDERMAL estradiol [Estrace] 2 mg tablet 2 mg PO DAILY Qty: 30 4RF nifedipine 90 mg tablet extended release 24 hr 90 mg PO DAILY Qty: 30 0RF ondansetron 4 mg tablet,disintegrating 4 mg PO Q8H PRN (Reason: nausea and vomiting) Qty: 20 0RF promethazine 12.5 mg tablet 12.5 mg PO Q6H PRN (Reason: nausea and vomiting) Qty: 30 0RF (DME) COVID-19 antigen test Kit See Rx Instructions .Route Qty: 1 0RF Rx Instructions: As directed benzonatate [benzonatate] 100 mg capsule 100 mg PO TIDP PRN (Reason: Cough) Qty: 30 0RF ondansetron 4 mg Tablet,Disintegrating 4 mg PO Q8H PRN (Reason: Nausea) Qty: 12 0RF gentamicin 0.3 % drops 1 drp ophthalmic (eye) Q4H 7 Days Qty: 5 0RF Rx Instructions: right eye as directed meloxicam 15 mg tablet 15 mg PO DAILY Qty: 7 0RF Referrals Follow up/Referrals: Fernando Ledesma MD [Primary Care Provider] - See instructions Activity Restrictions/Add. Instructions Additional Instructions/Restrictions: Go home and rest. I sent in a prescription for ibuprofen 800 mg tablets and promethazine. Since you had the shots here, don't take those medications for at least 6 to 8 hours from now. Follow up with your regular doctor. GO TO THE ER FOR ANY WORSENING SYMPTOMS OR CONCERN, ESPECIALLY BOWEL OR BLADDER ISSUES, SADDLE AREA NUMBNESS, FEVER, ETC Clinical Impressions Clinical Impression: Migraine Discharge ED Provider: Rubio Pitt [facility] General Stated complaint: [place] Mode of Arrival: Ambulatory Source of Information: Patient Limitations: No Limitations Time Seen by Provider: 02/10/23 19:00 Description of Symptoms (Recalled from Triage Doc. by RN): Patient reports having a migraine for the past 4 hours. Took ibuprofen at around 3pm with no relief. HEENT Symptoms (Recalled from RN notes): Yes Resp Symptoms (Recalled from RN notes): No Skin Symptoms (Recalled from RN notes): No MS Symptoms (Recalled from RN notes): No Functional Status (Recalled from RN notes): wnl Related Data Home Medications Medication Instructions Recorded Confirmed etonogestrel 68 mg subdermal subdermal 12/18/21 12/18/21 implant (Nexplanon) Previous Rx's Medication Instructions Recorded lisinopril 10 mg tablet 10 mg PO DAILY #30 tabs 10/02/21 citalopram 10 mg tablet (Celexa) 10 mg PO DAILY #30 tabs 11/11/21 lisinopril 20 mg tablet 20 mg PO DAILY #30 tabs 11/17/21 estradiol 2 mg tablet (Estrace) 2 mg PO DAILY #30 tabs 12/28/21 nifedipine 90 mg tablet,extended 90 mg PO DAILY Hypertension #30 01/22/22 release 24 hr tabs ondansetron 4 mg disintegrating 4 mg PO Q8H PRN nausea and 01/22/22 tablet vomiting #20 tabs promethazine 12.5 mg tablet 12.5 mg PO Q6H PRN nausea and 01/22/22 vomiting #30 tabs COVID-19 antigen test #1 ea 03/08/22 benzonatate 100 mg capsule 100 mg PO TIDP PRN Cough #30 caps 06/07/22 ondansetron 4 mg disintegrating 4 mg PO Q8H PRN Nausea #12 tabs 06/07/22 tablet gentamicin 0.3 % eye drops 1 drp ophthalmic (eye) Q4H 7 days 08/27/22 #5 mL meloxicam 15 mg tablet 15 mg PO DAILY #7 tabs 12/22/22 ibuprofen 800 mg tablet (IBU) 800 mg PO Q8HP PRN Moderate Pain 02/10/23 #30 tabs promethazine 25 mg tablet 25 mg PO TID PRN nausea and 02/10/23 vomiting #15 tabs Allergies Allergy/AdvReac Type Severity Reaction Status Date / Time adhesive [ADHESIVE] Allergy Unknown SWELLING Verified 06/07/22 19:31 Worker's
[2023-02-10 19:32] VITALS: BP 138/81; PULSE 86; RESP 16; TEMP 36.7; O2SAT 99
== END 2023-02-10 19:33 | disposition home or self-care (01) ==
PROVIDERS: Emergency Provider Nurse Practitioner Family; PCP Internal Medicine Adolescent Medicine
DX: G43.909 Migraine, unspecified, not intractable, without status migrainosus (principal); I10 Essential (primary) hypertension; F17.210 Nicotine dependence, cigarettes, uncomplicated
CPT/HCPCS: 96372; 99212; 99214; G0463

== ENCOUNTER 2023-03-06 21:45 | Emergency (ER) | payer OTHER, SELFPAY ==
[2023-03-06 21:47] VITALS: BP 158/97; PULSE 87; RESP 20; TEMP 37.1; O2SAT 99; BMI 37.1
--- NOTE | 2023-03-06 22:33 | HMH.EDGENADL ---
Discharge Plan Disposition Patient Disposition: Home, Self-Care Condition: Good Prescriptions Prescriptions: No Action lisinopril 10 mg tablet 10 mg PO DAILY Qty: 30 2RF citalopram [Celexa] 10 mg tablet 10 mg PO DAILY Qty: 30 2RF lisinopril 20 mg tablet 20 mg PO DAILY Qty: 30 5RF Nexplanon 68 mg implant SUBDERMAL estradiol [Estrace] 2 mg tablet 2 mg PO DAILY Qty: 30 4RF nifedipine 90 mg tablet extended release 24 hr 90 mg PO DAILY Qty: 30 0RF ondansetron 4 mg tablet,disintegrating 4 mg PO Q8H PRN (Reason: nausea and vomiting) Qty: 20 0RF promethazine 12.5 mg tablet 12.5 mg PO Q6H PRN (Reason: nausea and vomiting) Qty: 30 0RF (DME) COVID-19 antigen test Kit See Rx Instructions .Route Qty: 1 0RF Rx Instructions: As directed benzonatate [benzonatate] 100 mg capsule 100 mg PO TIDP PRN (Reason: Cough) Qty: 30 0RF ondansetron 4 mg Tablet,Disintegrating 4 mg PO Q8H PRN (Reason: Nausea) Qty: 12 0RF gentamicin 0.3 % drops 1 drp ophthalmic (eye) Q4H 7 Days Qty: 5 0RF Rx Instructions: right eye as directed meloxicam 15 mg tablet 15 mg PO DAILY Qty: 7 0RF ibuprofen [IBU] 800 mg tablet 800 mg PO Q8HP PRN (Reason: Moderate Pain) Qty: 30 0RF promethazine 25 mg tablet 25 mg PO TID PRN (Reason: nausea and vomiting) Qty: 15 0RF Referrals Follow up/Referrals: Fernando Ledesma MD [Primary Care Provider] - See instructions Activity Restrictions/Add. Instructions Additional Instructions/Restrictions: You were evaluated in the emergency department today. Please keep the Dermabond on your hand. Do not pick it off. Allow it to fall off on its own. Keep the wound clean and dry. Do not submerge in any water. Return to the emergency department for new or worsening symptoms Clinical Impressions Clinical Impression: Laceration of left thumb Stand Alone Forms Stand Alone Forms: Work/School Release Instructions Patient Instructions: DI for Laceration Repair Discharge ED Provider: Lydia Jordan General Adult HPI General Chief complaint: Wound/Laceration Stated complaint: AO laceration to left thumb, and palm Time Seen by Provider: 03/06/23 22:08 Mode of Arrival: Ambulatory Source of Information: Patient Limitations: No Limitations Description of Symptoms (Recalled from ER Triage Doc. by RN): Patient reports cutting up food tonight and kitchen knife slipped, laceration present to left thumb. History of Present Illness HPI narrative: This patient is a 27-year-old female who denies significant past medical history presented to the emergency department for evaluation with concern for laceration of the left thumb. Patient reports that she was trying to cut an onion just prior to arrival when she cut the proximal aspect of her left thumb. No other injuries noted. She is unsure when her last tetanus shot was. No numbness, tingling, or other issues. Related Data Home Medications Medication Instructions Recorded Confirmed etonogestrel 68 mg subdermal subdermal 12/18/21 12/18/21 implant (Nexplanon) Previous Rx's Medication Instructions Recorded lisinopril 10 mg tablet 10 mg PO DAILY #30 tabs 10/02/21 citalopram 10 mg tablet (Celexa) 10 mg PO DAILY #30 tabs 11/11/21 lisinopril 20 mg tablet 20 mg PO DAILY #30 tabs 11/17/21 estradiol 2 mg tablet (Estrace) 2 mg PO DAILY #30 tabs 12/28/21 nifedipine 90 mg tablet,extended 90 mg PO DAILY Hypertension #30 01/22/22 release 24 hr tabs ondansetron 4 mg disintegrating 4 mg PO Q8H PRN nausea and 01/22/22 tablet vomiting #20 tabs promethazine 12.5 mg tablet 12.5 mg PO Q6H PRN nausea and 01/22/22 vomiting #30 tabs COVID-19 antigen test #1 ea 03/08/22 benzonatate 100 mg capsule 100 mg PO TIDP PRN Cough #30 caps 06/07/22 ondansetron 4 mg disintegrating 4 mg PO Q8H PRN Nausea #12 tabs 06/07/22 tablet gentamicin 0.3 % eye drops 1 drp ophthalmic (eye) Q4H 7 days 08/27/22 #5 mL m
[2023-03-06 22:38] VITALS: BP 158/103; PULSE 77; RESP 14; TEMP 36.7; O2SAT 100
== END 2023-03-06 22:43 | disposition home or self-care (01) ==
PROVIDERS: Emergency Provider Emergency Medicine; PCP Internal Medicine Adolescent Medicine
DX: S61.012A Laceration without foreign body of left thumb without damage to nail, initial encounter (principal); W26.0XXA Contact with knife, initial encounter; Y93.G1 Activity, food preparation and clean up; I10 Essential (primary) hypertension; F17.210 Nicotine dependence, cigarettes, uncomplicated; Z23 Encounter for immunization
CPT/HCPCS: 12001; 90715; 96372; 99283

== ENCOUNTER 2023-03-13 14:00 | Emergency (ER) | payer OTHER, SELFPAY ==
[2023-03-13 14:10] VITALS: BP 140/93; PULSE 99; RESP 21; TEMP 37.1; O2SAT 98; BMI 37.1
--- NOTE | 2023-03-13 14:23 | EXP.UTC ---
Discharge Plan Disposition Patient Disposition: Home, Self-Care Condition: Good Prescriptions Prescriptions: New prednisone [prednisone] 20 mg tablet 20 mg PO BID 5 Days Qty: 10 0RF pseudoephedrine HCl [12 Hour Decongestant] 120 mg Tablet Extended Release 120 mg PO Q12H Qty: 20 0RF amoxicillin-pot clavulanate 875-125 mg Tablet 1 tab PO Q12H Qty: 20 0RF No Action lisinopril 10 mg tablet 10 mg PO DAILY Qty: 30 2RF citalopram [Celexa] 10 mg tablet 10 mg PO DAILY Qty: 30 2RF lisinopril 20 mg tablet 20 mg PO DAILY Qty: 30 5RF Nexplanon 68 mg implant SUBDERMAL estradiol [Estrace] 2 mg tablet 2 mg PO DAILY Qty: 30 4RF nifedipine 90 mg tablet extended release 24 hr 90 mg PO DAILY Qty: 30 0RF ondansetron 4 mg tablet,disintegrating 4 mg PO Q8H PRN (Reason: nausea and vomiting) Qty: 20 0RF promethazine 12.5 mg tablet 12.5 mg PO Q6H PRN (Reason: nausea and vomiting) Qty: 30 0RF (DME) COVID-19 antigen test Kit See Rx Instructions .Route Qty: 1 0RF Rx Instructions: As directed benzonatate [benzonatate] 100 mg capsule 100 mg PO TIDP PRN (Reason: Cough) Qty: 30 0RF ondansetron 4 mg Tablet,Disintegrating 4 mg PO Q8H PRN (Reason: Nausea) Qty: 12 0RF gentamicin 0.3 % drops 1 drp ophthalmic (eye) Q4H 7 Days Qty: 5 0RF Rx Instructions: right eye as directed meloxicam 15 mg tablet 15 mg PO DAILY Qty: 7 0RF ibuprofen [IBU] 800 mg tablet 800 mg PO Q8HP PRN (Reason: Moderate Pain) Qty: 30 0RF promethazine 25 mg tablet 25 mg PO TID PRN (Reason: nausea and vomiting) Qty: 15 0RF Referrals Follow up/Referrals: Fernando Ledesma MD [Primary Care Provider] - See instructions Activity Restrictions/Add. Instructions Additional Instructions/Restrictions: Take all medicine as prescribed until gone Follow up with Dr Ledesma if not improving Clinical Impressions Clinical Impression: Otitis media Qualifiers: Otitis media type: suppurative Chronicity: acute Laterality: left Recurrence: non-recurrent Spontaneous tympanic membrane rupture: without spontaneous rupture Qualified Code(s): H66.002 - Acute suppurative otitis media without spontaneous rupture of ear drum, left ear Instructions Patient Instructions: DI for Otitis Media (Middle Ear Infection)-Child Discharge ED Provider: Jessa Allan [facility] [place] General Stated complaint: congestion, runny nose, cough Time Seen by Provider: 03/13/23 14:27 History of Present Illness Provider Complaint: Cough, congestion X 2-3 days. Fever yesterday. Headache, body aches, chills. Denies ear pain. Has sore throat. Denies vomiting and diarrhea. Productive cough. Onset (ago): day(s) Location: head and chest Relieving factors: none Exacerbating factors: none Associated symptoms: denies other symptoms Treatments prior to arrival: none Related Data Home Medications Medication Instructions Recorded Confirmed etonogestrel 68 mg subdermal subdermal 12/18/21 12/18/21 implant (Nexplanon) Previous Rx's Medication Instructions Recorded lisinopril 10 mg tablet 10 mg PO DAILY #30 tabs 10/02/21 citalopram 10 mg tablet (Celexa) 10 mg PO DAILY #30 tabs 11/11/21 lisinopril 20 mg tablet 20 mg PO DAILY #30 tabs 11/17/21 estradiol 2 mg tablet (Estrace) 2 mg PO DAILY #30 tabs 12/28/21 nifedipine 90 mg tablet,extended 90 mg PO DAILY Hypertension #30 01/22/22 release 24 hr tabs ondansetron 4 mg disintegrating 4 mg PO Q8H PRN nausea and 01/22/22 tablet vomiting #20 tabs promethazine 12.5 mg tablet 12.5 mg PO Q6H PRN nausea and 01/22/22 vomiting #30 tabs COVID-19 antigen test #1 ea 03/08/22 benzonatate 100 mg capsule 100 mg PO TIDP PRN Cough #30 caps 06/07/22 ondansetron 4 mg disintegrating 4 mg PO Q8H PRN Nausea #12 tabs 06/07/22 tablet gentamicin 0.3 % eye drops 1 drp ophthalmic (eye) Q4H 7 days 08/27/22 #5 mL meloxicam 15 mg tablet 15 mg PO DAILY #7 tabs 12/22/22 ibupr
[2023-03-13 14:27] LABS: UTC Strep Screen (Rapid) Negative (Negative)
[2023-03-13 14:30] LABS: Coronavirus 19, PCR Not Detected (NotDetected); Influenza A, PCR Not Detected (NotDetected); Influenza B, PCR Not Detected (NotDetected)
[2023-03-13 14:36] VITALS: BP 140/93; PULSE 99; RESP 21; TEMP 37.1; O2SAT 98
== END 2023-03-13 14:41 | disposition home or self-care (01) ==
PROVIDERS: Emergency Provider Physician Assistant; PCP Internal Medicine Adolescent Medicine
DX: H66.002 Acute suppurative otitis media without spontaneous rupture of ear drum, left ear (principal); R09.81 Nasal congestion; R05.9 Cough, unspecified; F17.210 Nicotine dependence, cigarettes, uncomplicated; I10 Essential (primary) hypertension
CPT/HCPCS: 87636; 87880; 99212; 99214; G0463

== ENCOUNTER 2023-09-06 14:09 | Emergency (ER) | payer OTHER, SELFPAY ==
[2023-09-06 14:47] VITALS: PULSE 101; RESP 20; TEMP 37.8; O2SAT 97; BMI 37.3
--- NOTE | 2023-09-06 14:51 | ED_ITS ---
Discharge Plan Disposition Patient Disposition: Home, Self-Care Condition: Good Prescriptions Prescriptions: New oydkdojsaoevnlp-onasyezmc-ZL [Bromfed DM] 2-30-10 mg/5 mL syrup 10 ml PO Q6H PRN (Reason: cold symptoms) Qty: 200 0RF Referrals Follow up/Referrals: Fernando Ledesma MD [Primary Care Provider] - See instructions Activity Restrictions/Add. Instructions Additional Instructions/Restrictions: * Too late to start Tamiflu. Most effective when started within 48 hours of symptoms onset * Lots of rest * Increase Fluids water, Gatorade, powerade, pedialyte,if infa nt/toddler/child * Alternate Tylenol and / or ibuprofen as discussed for fever, aches, chills Follow up IMMEDIATELY with your family doctor for new or worsening Symptoms OR no noticeable improvement over the next 48-72 hours, 911 for difficulty or breathing * You or your child area contagious until no fever, aches, chills for 24 hours with medication for symptoms * Help Prevent the spread of influenza: * ?Wash your hands often. Use soap and water. Wash your hands after you use the bathroom, change a child's diapers, or sneeze. Wash your hands before you prepare or eat food. Use gel hand cleanser that has 60% alcohol, when soap and water are not available. Do not touch your eyes, nose, or mouth unless you have washed your hands first. * Cover your mouth when you sneeze or cough. Cough into a tissue or the bend of your arm. If you use a tissue, throw it away immediately and wash your hands. * Clean shared items with a germ-killing graffiti cleaner. Clean table surfaces, doorknobs, and light switches. Do not share towels, silverware, and dishes with people who are sick. Wash bed sheets, towels, silverware, and dishes with soap and water. * Wear a mask over your mouth and nose if you are sick. The face mask may help protect others from becoming infected with the flu. Wear the mask when in common areas of your home or if you seek care with a healthcare provider. * Stay away from others if you are sick. Stay at home until 24 hours after your fever and symptoms are gone. Clinical Impressions Clinical Impression: Influenza Stand Alone Forms Stand Alone Forms: Work/School Release Instructions Patient Instructions: DI for Influenza -- Adult, Influenza Discharge ED Provider: Lay Lucas [facility] [place] HPI General Stated complaint: headache, cough, body aches, congestion Mode of Arrival: Ambulatory Source of Information: Patient Limitations: No Limitations Time Seen by Provider: 09/06/23 14:51 Description of Symptoms (Recalled from Triage Doc. by RN): PATIENT C/O HEADACHE, BODY ACHES, FEVER, COUGH, AND LOSS OF TASTE X 2 DAYS HEENT Symptoms (Recalled from RN notes): Yes Resp Symptoms (Recalled from RN notes): Yes Skin Symptoms (Recalled from RN notes): No MS Symptoms (Recalled from RN notes): No Functional Status (Recalled from RN notes): WNL History of Present Illness Provider Complaint: Pt states that she has been sick for the last 2-3 days States everyone in the house is sick States that she has been having fever, body aches, chills and cough and everything is tasting funny or has no taste so today when her daughter started with the same symptoms she came in to get checked Related Data Previous Rx's Medication Instructions Recorded onfcsikcbrijqbw-ltotgmufufgrnip-HG 10 ml PO Q6H PRN cold symptoms 09/06/23 2 mg-30 mg-10 mg/5 mL oral syrup #200 mL (Bromfed DM) Allergies Allergy/AdvReac Type Severity Reaction Status Date / Time adhesive [ADHESIVE] Allergy Unknown SWELLING Verified 06/07/22 19:31 Worker's Comp Is this a Worker's Comp case?: No [facility] Disclaimer: The information contained in this section may have been updated after the patient was seen, as this information can be updated by other users. Medical History Hypertension Surgical History History of tonsillectomy Social History Smoking Status: Current every day smoker tobacco type: cigarettes packs per day: 1 second hand exposure: Yes alcohol intake: never substance use type: denies use current occupational status: unemployed Travel in the last 8 weeks: None household members: family housing: house number of children: 1 current occupational exposures/hazards: No ROS Obtained: Yes All systems reviewed & no additional complaints except as documented and Yes Systems reviewed as appropriate & no additional complaints except as documented Constitutional Constitutional: Reports system reviewed and no additional complaints, except as documented, Reports as per HPI, Reports body ache, Reports chills, Reports fever(s) and Reports headache(s) ENT Ears, Nose, Mouth, and Throat: Reports system reviewed and no additional complaints, except as documented, Reports as per HPI and Reports headache(s) Cardiovascular Cardiovascular: Reports system reviewed and no additional complaints, except as documented and Reports as per HPI Respiratory Respiratory: Reports system reviewed and no additional complaints, except as documented and Reports as per HPI Gastrointestinal Gastrointestingal: Reports system reviewed and no additional complaints, except as documented and as per HPI Neurologic Neurologic: Reports headache(s) Physical Exam General General appearance: alert and in no apparent distress ENT ENT exam: Present mucous membranes moist Expanded ENT Exam Nose exam: Absent sinus tenderness Throat exam: Present normal inspection Chest Chest inspection: Present normal inspection and symmetric chest wall rise Respiratory Respiratory exam: Present normal lung sounds bilaterally; Absent respiratory distress or wheezes Cardiovascular Cardiovascular exam: Present regular rate, normal rhythm and normal heart sounds Abdominal Exam Abdominal exam: Present soft and normal bowel sounds; Absent distention or tenderness Neurological Exam Neurological exam: Present alert, oriented X3 and normal gait Medical Decision Making Bright Inquiry Pt receiving controlled substance: No Bright was queried for this patient: No Vital Signs: 09/06/23 14:47 Temperature 100.0 F H Temperature Source Oral Pulse Rate [Right] 101 H Respiratory Rate 20 02 Sat by Pulse Oximetry 97 Oxygen Delivery Method Room Air Lab Data Lab results reviewed: Yes I reviewed the patient's lab results.
[2023-09-06 14:58] LABS: UTC Influenza A Antigen Positive (Negative)
[2023-09-06 14:59] LABS: UTC Influenza B Antigen Negative (Negative)
[2023-09-06 15:00] VITALS: BP 0/0; PULSE 101; RESP 20; TEMP 37.8; O2SAT 97
== END 2023-09-06 15:09 | disposition home or self-care (01) ==
PROVIDERS: Emergency Provider Nurse Practitioner; PCP Internal Medicine Adolescent Medicine
DX: J10.1 Influenza due to other identified influenza virus with other respiratory manifestations (principal); R51.9 Headache, unspecified; R05.9 Cough, unspecified; R50.9 Fever, unspecified; R43.9 Unspecified disturbances of smell and taste; F17.210 Nicotine dependence, cigarettes, uncomplicated
CPT/HCPCS: 87804; 99212; 99214; G0463

== ENCOUNTER 2024-01-15 13:56 | Emergency (ER) | payer OTHER, SELFPAY ==
[2024-01-15 14:10] VITALS: BP 130/76; PULSE 88; RESP 18; TEMP 37; O2SAT 98; BMI 38.1
--- NOTE | 2024-01-15 14:22 | ED_ITS ---
Discharge Plan Disposition Patient Disposition: Home, Self-Care Condition: Good Prescriptions Prescriptions: New prednisone 10 mg tablet 10 mg PO BID 3 Days Qty: 6 0RF azithromycin [Zithromax] 250 mg tablet 250 mg PO UD DOSE PK Qty: 6 0RF Rx Instructions: Take two (2) tablets today, then one (1) tablet days #2 thru #5 zfsjityiimsxvyq-jrtdlacqd-RE [Bromfed DM] 2-30-10 mg/5 mL Syrup 5 ml PO Q6H PRN (Reason: Cough) Qty: 240 0RF Referrals Follow up/Referrals: Provider,Referral, MD [Primary Care Provider] - See instructions Activity Restrictions/Add. Instructions Additional Instructions/Restrictions: Drink plenty of fluids. Take tylenol or ibuprofen for pain or fever. Take the medications as directed. Follow up with your regular doctor. GO TO THE ER FOR ANY WORSENING SYMPTOMS Clinical Impressions Clinical Impression: Sinusitis, Viral syndrome Instructions Patient Instructions: Sinusitis, DI for Sinusitis Discharge ED Provider: Rubio Pitt [facility] General Stated complaint: cough chest congestion fever Time Seen by Provider: 01/15/24 14:22 History of Present Illness Provider Complaint: She states that for the past 3 days she has had sinus congestion, fever, body aches, and chills. Related Data Previous Rx's Medication Instructions Recorded azithromycin 250 mg tablet 250 mg PO UD DOSE PK #6 tabs 01/15/24 (Zithromax) ursrwfywvisyvjy-usjorxfltvfuaem-FE 5 ml PO Q6H PRN Cough #240 mL 01/15/24 2 mg-30 mg-10 mg/5 mL oral syrup (Bromfed DM) prednisone 10 mg tablet 10 mg PO BID 3 days #6 tabs 01/15/24 Allergies Allergy/AdvReac Type Severity Reaction Status Date / Time adhesive [ADHESIVE] Allergy Unknown SWELLING Verified 06/07/22 19:31 [facility] Disclaimer: The information contained in this section may have been updated after the patient was seen, as this information can be updated by other users. Medical History Hypertension Surgical History History of tonsillectomy Social History Smoking Status: Current every day smoker tobacco type: cigarettes packs per day: 1 second hand exposure: Yes alcohol intake: never substance use type: denies use current occupational status: unemployed Travel in the last 8 weeks: None household members: family housing: house number of children: 1 current occupational exposures/hazards: No ROS Obtained: Yes All systems reviewed & no additional complaints except as documented Constitutional Constitutional: Reports chills and Reports fever(s) Eyes Eyes: Denies eye discharge ENT Ears, Nose, Mouth, and Throat: Reports as per HPI Cardiovascular Cardiovascular: Denies chest pain Respiratory Respiratory: Denies chest congestion and Reports cough Gastrointestinal Gastrointestingal: Reports nausea; Denies abdominal pain, 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, 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, diarrhea or vomiting Musculoskeletal Musculoskeletal: Denies arthralgias Integumentary/Breasts Skin/Breast: Denies rash Neurologic Neurologic: Denies paresthesias Physical Exam General General appearance: alert and in no apparent distress Eye Eye exam: Present normal appearance, PERRL and EOMI ENT ENT exam: Present mucous membranes moist and normal external ear exam Expanded ENT Exam External ear exam: Present normal external inspection TM/Canal exam: Bilateral TM: erythema and bulging Nose exam: Absent sinus tenderness Nasal speculum exam: Bilateral: normal Mouth exam: Present normal external inspection; Absent drooling Teeth exam: Present normal inspection Throat exam: Present tonsillar erythema and tonsillomegaly Neck Neck exam: Present normal inspection, full ROM and trachea midline; Absent tenderness, lymphadenopathy or thyromegaly Chest Chest inspection: Present normal inspection and symmetric chest wall rise; Absent tenderness or rash Respiratory Respiratory exam: Present normal lung sounds bilaterally; Absent respiratory distress, wheezes, stridor or accessory muscle use Cardiovascular Cardiovascular exam: Present regular rate, normal rhythm and normal heart sounds Abdominal Exam Abdominal exam: Present soft; Absent distention, tenderness, guarding, rebound or rigidity Extremities Exam Extremities exam: Present normal inspection, full ROM and normal capillary refill; Absent tenderness or calf tenderness Back Exam Back exam: Present normal inspection and full ROM; Absent tenderness Neurological Exam Neurological exam: Present alert and oriented X3 Psychiatric Psychiatric exam: Present normal affect and normal mood Skin Skin exam: Present warm, dry, intact and normal color Lymphatic Lymphatic Findings: no adenopathy Medical Decision Making Medical Records Medical records reviewed: No I reviewed the patient's medical records. Bright Inquiry Pt receiving controlled substance: No Lab Data Lab results reviewed: Yes I reviewed the patient's lab results.
[2024-01-15 14:29] LABS: UTC Strep Screen (Rapid) Negative (Negative)
[2024-01-15 14:57] VITALS: BP 130/76; PULSE 88; RESP 18; TEMP 37; O2SAT 98
[2024-01-15 15:02] LABS: Coronavirus 19, PCR Not Detected (NotDetected); Influenza A, PCR Not Detected (NotDetected); Influenza B, PCR Not Detected (NotDetected)
== END 2024-01-15 15:01 | disposition home or self-care (01) ==
PROVIDERS: Emergency Provider Nurse Practitioner Family
DX: J01.90 Acute sinusitis, unspecified (principal); R50.9 Fever, unspecified; B34.9 Viral infection, unspecified
CPT/HCPCS: 87636; 87880; 99212; 99214; G0463

== ENCOUNTER 2024-05-07 16:28 | Emergency (ER) | payer OTHER, SELFPAY ==
[2024-05-07 16:50] VITALS: BP 153/97; PULSE 82; RESP 18; TEMP 37.2; O2SAT 98; BMI 39.9
--- NOTE | 2024-05-07 16:55 | EXP.UTC ---
Discharge Plan Disposition Patient Disposition: Home, Self-Care Condition: Good Prescriptions Prescriptions: New fkhonymklfsacvd-nrfakrcqn-PP [Bromfed DM] 2-30-10 mg/5 mL Syrup 5 ml PO Q6H PRN (Reason: Cough) Qty: 240 0RF ondansetron 4 mg Tablet,Disintegrating 4 mg PO Q8H PRN (Reason: Nausea) Qty: 12 0RF No Action Nexplanon 68 mg implant 68 mg subdermal ONCE Referrals Follow up/Referrals: Provider,Referral, MD [Primary Care Provider] - See instructions Activity Restrictions/Add. Instructions Additional Instructions/Restrictions: Drink plenty of fluids. Take tylenol or ibuprofen for pain or fever. Take the medications as directed. Follow up with your regular doctor. GO TO THE ER FOR ANY WORSENING SYMPTOMS Clinical Impressions Clinical Impression: COVID-19 Stand Alone Forms Stand Alone Forms: Work/School Release Instructions Patient Instructions: Coronavirus Disease 2019, Preventing the Spread of Coronavirus Discharge Instructions Print Language Print Language: German Discharge ED Provider: Rubio Pitt [facility] [place] [facility] [place] General Stated complaint: sore throat,cough,DALTON,body aches,cobngestion Time Seen by Provider: 05/07/24 16:49 Related Data Home Medications ?Medication ?Instructions ?Recorded ?Confirmed etonogestrel 68 mg subdermal 68 mg subdermal ONCE 01/23/24 05/07/24 implant (Nexplanon) Previous Rx's ?Medication ?Instructions ?Recorded bcmxdsmwptmbmtj-zaiirvbrknbcmbo-XN 5 ml PO Q6H PRN Cough #240 mL 05/07/24 2 mg-30 mg-10 mg/5 mL oral syrup (Bromfed DM) ondansetron 4 mg disintegrating 4 mg PO Q8H PRN Nausea #12 tabs 05/07/24 tablet Allergies Allergy/AdvReac Type Severity Reaction Status Date / Time adhesive [ADHESIVE] Allergy Unknown SWELLING Verified 01/23/24 14:13 [facility] Disclaimer: The information contained in this section may have been updated after the patient was seen, as this information can be updated by other users. Medical History Hypertension Surgical History History of tonsillectomy Social History Smoking Status: Current every day smoker tobacco type: cigarettes packs per day: 1 second hand exposure: Yes alcohol intake: never substance use type: denies use current occupational status: unemployed Travel in the last 8 weeks: None household members: family housing: house number of children: 1 current occupational exposures/hazards: No ROS Obtained: Yes All systems reviewed & no additional complaints except as documented Constitutional Constitutional: Reports chills and Reports fever(s) Eyes Eyes: Denies eye discharge ENT Ears, Nose, Mouth, and Throat: Reports as per HPI Cardiovascular Cardiovascular: Denies chest pain Respiratory Respiratory: Denies chest congestion and Reports cough Gastrointestinal Gastrointestingal: Reports nausea; Denies abdominal pain, 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, cramping, diarrhea or vomiting Musculoskeletal Musculoskeletal: Denies arthralgias Integumentary/Breasts Skin/Breast: Denies rash Neurologic Neurologic: Denies paresthesias Physical Exam General General appearance: alert and in no apparent distress Head Head exam: atraumatic, normocephalic and normal inspection Eye Eye exam: Present normal appearance, PERRL and EOMI ENT ENT exam: Present normal exam, normal oropharynx, mucous membranes moist, TM's normal bilaterally and normal external ear exam Neck Neck exam: Present normal inspection, full ROM and trachea midline; Absent meningismus or lymphadenopathy Chest Chest inspection: Present normal inspection and symmetric chest wall rise; Absent tenderness Respiratory Respiratory exam: Present normal lung sounds bilaterally; Absent respiratory distress Cardiovascular Cardiovascular exam: Present regular rate and normal rhythm; Absent JVD Abdominal Exam Abdominal exam: Present soft and normal bowel sounds; Absent distention, tenderness or guarding Extremities Exam Extremities exam: Present normal inspection, full ROM and normal capillary refill; Absent calf tenderness Back Exam Back exam: Present normal inspection; Absent tenderness Neurological Exam Neurological exam: Present alert and oriented X3 Psychiatric Psychiatric exam: Present normal affect and normal mood Skin Skin exam: Present warm, dry, intact and normal color Lymphatic Lymphatic Findings: no adenopathy Medical Decision Making Medical Records Medical records reviewed: No I reviewed the patient's medical records. Screening: Per USPSTF and CDC recommendations, given the prevalence of disease in our region, it is our hospital?s policy to screen for HIV and viral Hepatitis for all patients aged 18 and over and those with ongoing risk factors. Bright Inquiry Pt receiving controlled substance: No Lab Data Lab results reviewed: Yes I reviewed the patient's lab results.
[2024-05-07 16:59] LABS: Influenza A, PCR Not Detected (NotDetected); Influenza B, PCR Not Detected (NotDetected)
[2024-05-07 17:42] VITALS: BP 153/97; PULSE 82; RESP 18; TEMP 37.2; O2SAT 98
[2024-05-07 18:44] LABS: Coronavirus 19, PCR Detected (NotDetected)
== END 2024-05-07 18:00 | disposition home or self-care (01) ==
PROVIDERS: Emergency Provider Nurse Practitioner Family
DX: U07.1 COVID-19 (principal); R05.9 Cough, unspecified; R50.9 Fever, unspecified; R51.9 Headache, unspecified; M79.10 Myalgia, unspecified site; R09.81 Nasal congestion; J02.9 Acute pharyngitis, unspecified
CPT/HCPCS: 87636; 99212; G0381

== ENCOUNTER 2024-07-06 15:05 | Emergency (ER) | payer OTHER, SELFPAY ==
[2024-07-06 15:35] VITALS: BP 131/87; PULSE 90; RESP 21; TEMP 36.9; O2SAT 99; BMI 44.6
--- NOTE | 2024-07-06 16:07 | ED_ITS ---
Discharge Plan Disposition Patient Disposition: Home, Self-Care Condition: Good Prescriptions Prescriptions: No Action Nexplanon 68 mg implant 68 mg subdermal ONCE Referrals Follow up/Referrals: Fernando Ledesma MD [Primary Care Provider] - See instructions Activity Restrictions/Add. Instructions Additional Instructions/Restrictions: *Monitor Temp, Over the counter Motrin or Tylenol as directed/as needed Tylenol every 4 hours and Motrin every 6 hours (as long as your family doctor has told you that you can take it) for fever or pain. and straight to ER if unable to lower temp less than 101.0 after medication given *Warm salt water gargles may help to soothe the throat *Throat Lozenges? *Warm fluids like tea with honey may help to soothe the throat? *Sleep elevated *Humidifier/Vaporizer Follow up IMMEDIATELY for new or worsening symptoms or no Noticeable improvement over the next 48-72 hours. 911 for difficulty breathing or swallowing Clinical Impressions Clinical Impression: Viral syndrome Instructions Patient Instructions: DI for Viral Syndrome Print Language Print Language: Togolese Discharge ED Provider: Lya Lucas [facility] [place] HPI General Stated complaint: flu-exp- joshua, cough, ear ache Mode of Arrival: Ambulatory Source of Information: Patient Limitations: No Limitations Time Seen by Provider: 07/06/24 16:07 Description of Symptoms (Recalled from Triage Doc. by RN): PATIENT C/O COUGH, CONGESTION AND FEVER X 2 DAYS. EXPOSED TO FLU HEENT Symptoms (Recalled from RN notes): Yes Resp Symptoms (Recalled from RN notes): Yes Skin Symptoms (Recalled from RN notes): No MS Symptoms (Recalled from RN notes): No Functional Status (Recalled from RN notes): WNL History of Present Illness Provider Complaint: Patient states that she was exposed to the flu and has been having symptoms for the last few days States that she has been having nasal congestion and body aches so today she came in wanting to get tested for flu Related Data Home Medications ?Medication ?Instructions ?Recorded ?Confirmed etonogestrel 68 mg subdermal 68 mg subdermal ONCE 01/23/24 07/06/24 implant (Nexplanon) Allergies Allergy/AdvReac Type Severity Reaction Status Date / Time adhesive (ADHESIVE) Allergy Unknown SWELLING Verified 01/23/24 14:13 Worker's Comp Is this a Worker's Comp case?: No [facility] Disclaimer: The information contained in this section may have been updated after the patient was seen, as this information can be updated by other users. Medical History Hypertension Surgical History History of tonsillectomy Social History Smoking Status: Current every day smoker tobacco type: cigarettes packs per day: 1 second hand exposure: Yes alcohol intake: never substance use type: denies use current occupational status: unemployed Travel in the last 8 weeks: None household members: family housing: house number of children: 1 current occupational exposures/hazards: No Have you lived/traveled outside [place] in past 30 days?: No Contact w/someone who lives/traveled outside [place] past 30 days?: No Exposure to someone with infectious disease in past 14 days?: Yes Do you have a fever (greater than 100.4 F or 38 C)?: No Have you tested positive for COVID-19: No Exposed to someone with COVID-19 in past 14 days?: No Do you have a sore throat?: No Do you have a cough?: Yes Do you have any weakness?: No Do you have any diarrhea?: No Are you experiencing any unusual bleeding?: No Do you have any muscle aches/pain?: No Do you have any abdominal pain?: No Are you experiencing loss of taste or smell?: No ROS Obtained: Yes All systems reviewed & no additional complaints except as documented and Yes Systems reviewed as appropriate & no additional complaints except as documented Constitutional Constitutional: Reports system reviewed and no additional complaints, except as documented, Reports as per HPI, Reports body ache and Reports chills ENT Ears, Nose, Mouth, and Throat: Reports system reviewed and no additional complaints, except as documented, Reports as per HPI, Reports nasal congestion and Reports nasal discharge Cardiovascular Cardiovascular: Reports system reviewed and no additional complaints, except as documented and Reports as per HPI Respiratory Respiratory: Reports system reviewed and no additional complaints, except as documented and Reports as per HPI Gastrointestinal Gastrointestingal: Reports system reviewed and no additional complaints, except as documented and as per HPI Physical Exam General General appearance: alert and in no apparent distress ENT ENT exam: Present mucous membranes moist Expanded ENT Exam Nose exam: Present other (clear drainage note) Throat exam: Present normal inspection Respiratory Respiratory exam: Present normal lung sounds bilaterally; Absent respiratory distress or wheezes Cardiovascular Cardiovascular exam: Present regular rate, normal rhythm and normal heart sounds Abdominal Exam Abdominal exam: Present soft and normal bowel sounds; Absent distention or tenderness Neurological Exam Neurological exam: Present alert, oriented X3 and normal gait Medical Decision Making Medical Records Screening: Per USPSTF and CDC recommendations, given the prevalence of disease in our region, it is our hospital?s policy to screen for HIV and viral Hepatitis for all patients aged 18 and over and those with ongoing risk factors. Bright Inquiry Pt receiving controlled substance: No Bright was queried for this patient: No Vital Signs: 07/06/24 15:35 Temperature 98.5 F Temperature Source Oral Pulse Rate [Left Brachial] 90 Respiratory Rate 21 Blood Pressure [Left Arm] 131/87 Blood Pressure Mean [Left Arm] 101 Blood Pressure Source [Left Arm] Automatic Cuff Blood Pressure Position [Left Arm] Sitting 02 Sat by Pulse Oximetry 99 Oxygen Delivery Method Room Air Lab Data Lab results reviewed: Yes I reviewed the patient's lab results.
[2024-07-06 16:12] LABS: UTC Influenza A Antigen Negative (Negative); UTC Influenza B Antigen Negative (Negative)
[2024-07-06 16:20] VITALS: BP 131/87; PULSE 90; RESP 21; TEMP 36.9; O2SAT 99
== END 2024-07-06 16:28 | disposition home or self-care (01) ==
PROVIDERS: Emergency Provider Nurse Practitioner; PCP Internal Medicine Adolescent Medicine
DX: B34.9 Viral infection, unspecified (principal)
CPT/HCPCS: 87804; 99213; G0381

== ENCOUNTER 2024-12-11 13:19 | Outpatient (CLI) | payer OTHER, SELFPAY ==
--- NOTE | 2024-12-11 13:24 | US_ITS ---
PROCEDURE: US TRANSVAGINAL CLINICAL INDICATION: Needs ALBERT for heavy bleeding COMPARISON: No exams were available for comparison FINDINGS: Transvaginal sonographic images of the pelvis were obtained. UTERUS: 8.9cm x 7.5 cm x 5.1cm retroflexed with a combined endometrial thickness of 31.3mm. The endometrium is thickened and in-homogeneous possibly full of blood clots. There is fluid in the fundus of the endometrial cavity. LEFT OVARY: 2.9 cmx1.6 cmx1.8cm with a volume of 4.4ml. RIGHT OVARY: 3.9 cmx 2.4cmx3.4cm with a volume of 16.4ml. There is a follicle measuring 2.8 cm x 1.7 cm x 2.4 cm. Both ovaries are seen and appear normal. Doppler flow to both ovaries are seen. There is a moderate amount of fluid in the cul-de-sac. There is fluid anterior to the uterus as well. IMPRESSION: 1. Anteverted retroflexed uterus upper limits of normal in size. The endometrium is markedly thickened measuring 31 mm and is likely consistent of blood clots. There is some fluid within the endometrial cavity, likely blood 2. Both ovaries are seen and appear normal. There is a dominant follicle in the right ovary measuring 2.8 cm. 3. There is moderate fluid in the cul-de-sac along with fluid anterior to the uterus. Possibly retrograde blood flow. Dictated by: Osvaldo Foster MD 12/11/2024 15:41 Osvaldo Foster MD in [place] 12/11/2024 15:41
== END 2024-12-11 23:59 | disposition home or self-care (01) ==
LOC: RAD 13:20
PROVIDERS: PCP Nurse Practitioner Obstetrics & Gynecology; Visit Provider Nurse Practitioner Obstetrics & Gynecology
DX: N83.01 Follicular cyst of right ovary (principal); R93.89 Abnormal findings on diagnostic imaging of other specified body structures; N93.9 Abnormal uterine and vaginal bleeding, unspecified; N92.6 Irregular menstruation, unspecified
CPT/HCPCS: 76830

== ENCOUNTER 2024-12-12 14:59 | Outpatient (CLI) | payer OTHER, SELFPAY ==
[2024-12-12 15:34] LABS: Basophils % 0.5 % (0.1-2.0); Hemoglobin 8.2 g/dL (12.2-16.2); Immature Granulocytes # 0.01 10^3uL; Immature Granulocytes % 0.2 %; Lymphocytes # 1.7 K/mm3 (0.7-4.5); Lymphocytes % 41.2 % (10-50); Mean Corpuscular HGB Conc 32.8 g/dL (31.8-35.4); Mean Corpuscular Hemoglobin 29.9 pg (27.0-31.2); Mean Corpuscular Volume 91.2 fl (81-99); Mean Platelet Volume 9.4 fl (7.4-10.4); Monocytes # 0.3 K/mm3 (0.1-1.0); Monocytes % 7.7 % (1.7-9.3); Neutrophils % 49.4 % (37.0-80.0); Nucleated Red Blood Cells # 0 10^3/uL; Nucleated Red Blood Cells % 0 %; Platelet Count 291 K/mm3 (142-424); Red Blood Count 2.74 M/mm3 (4.20-5.40); Red Cell Distribution Width 12.4 % (11.5-17.5); Red Cell Distribution Width-SD 40.8 fL
[2024-12-12 16:15] LABS: Alanine Aminotransferase 16 U/L (12-78); Albumin Level 3.7 g/dl (3.5-5.0); Albumin/Globulin Ratio 1.5 (1.1-1.8); Alkaline Phosphatase 61 U/L (38-126); Anion Gap 11.7 mEq/L (5-15); Aspartate Amino Transferase 17 U/L (14-36); Blood Urea Nitrogen 7 mg/dl (7-17); Calcium 8.5 mg/dl (8.4-10.2); Carbon Dioxide 22 mmol/L (22.0-30.0); Chloride 110 mmol/L (98-107); Estimated Glomerular Filt Rate 86 ml/min (>60); GFR (African American) 104 ML/MIN (>60); Globulin 2.4 g/dL (1.3-3.2); Glucose 108 mg/dl (74-100); Potassium 3.7 mmoL/L (3.5-5.1); Sodium 140 mmol/L (136-145); Total Protein,Serum 6.1 g/dl (6.3-8.2)
[2024-12-12 16:33] LABS: HCG,Quantitative < 2 mIU/ml (0-5.42)
== END 2024-12-12 23:59 | disposition home or self-care (01) ==
LOC: LAB 15:00
PROVIDERS: Visit Provider Nurse Practitioner Obstetrics & Gynecology
DX: N85.7 Hematometra (principal)
CPT/HCPCS: 36415; 80053; 84702; 85025

== ENCOUNTER 2024-12-13 09:43 | Day surgery (SDC) | payer OTHER, SELFPAY ==
[2024-12-13] VITALS (10 sets, daily range): BP systolic 128–164; BP diastolic 61–98; PULSE 70–94; RESP 16–18; TEMP 36.3–36.8; O2SAT 96–100; BMI 42.5
[2024-12-13] MEDS: 0.9 % SODIUM CHLORIDE 1000ML 1,000 ML 25 ML IV (10:37)
--- NOTE | 2024-12-13 10:53 | P.PNANES_ITS ---
[facility] Disclaimer: The information contained in this section may have been updated after the patient was seen, as this information can be updated by other users. Medical History Hypertension Surgical History History of tonsillectomy Family History Other Family history of cancer Family history of diabetes mellitus type II Social History Smoking Status: Current every day smoker tobacco type: cigarettes packs per day: 1 second hand exposure: Yes alcohol intake: never substance use type: denies use current occupational status: unemployed Travel in the last 8 weeks?: None household members: family housing: house number of children: 1 current occupational exposures/hazards: No Have you lived/traveled outside [place] in past 30 days?: No Contact w/someone who lives/traveled outside [place] past 30 days?: No Exposure to someone with infectious disease in past 14 days?: No Do you have a fever (greater than 100.4 F or 38 C)?: No Have you tested positive for COVID-19?: No Exposed to someone with COVID-19 in past 14 days?: No Do you have a sore throat?: No Do you have a cough?: No Do you have any weakness?: No Do you have any diarrhea?: No Are you experiencing any unusual bleeding?: No Do you have any muscle aches/pain?: No Do you have any abdominal pain?: No Are you experiencing loss of taste or smell?: No [facility] Anesthesia Checklist Patient Identification Patient Identification: Arm Band Structural Data Admitted From: Home Planned Operative Procedure/s: Hysteroscopy, D&C Consent for Planned Operative Procedure(s) Verified: Yes Verified Documents: Surgical Consent and History and Physical NPO Status Verified Time NPO: 00:00 Additional verifications Anesthesia Reactions: No Hx Blood Transfusions: No Blood Transfusion Reaction: No Airway Assessment Mallampati Score:: Class II C-Spine Mobility Assessed: Yes TMJ Mobility Assessed: Yes Dentition: Good Dentition Neurological Assessment Level of Consciousness: Awake, Alert and Appropriate Anesthesia Plan Anesthesia Risk discussed: Yes Anesthesia Plan: Verified ASA Class: III Anesthesia Type: General
[2024-12-13] MEDS: CEFAZOLIN SODIUM 2 GM in 0.9 % SODIUM CHLORIDE 100 ML IV (11:30)
--- NOTE | 2024-12-13 12:03 | P.OP_ITS ---
Date of procedure: 12/13/24 Pre-op Diagnosis:: Menorrhagia, anemia, Post-op Diagnosis:: Menorrhagia, anemia, endometrial polyp Procedure performed:: Hysteroscopy, dilation and curettage with Pickett suction. MyoSure polypectomy. Surgeon:: Osvaldo Foster MD PROTECTIVE OFFICER:: Other (Minerva Valle) Anesthesia: LMA Estimated blood loss (mL): 50 Clinical Note:: She is a 29-year-old lady who complains of extremely heavy periods. Her hemoglobin blood counts were down to 8.2 yesterday. She has been using for over a month. An ultrasound showed that she had a large clot inside the lining of the uterus preventing the uterus from clamping down. As result of that we elected perform a hysteroscopy, D&C. Operative findings:: She had an anteverted bulky uterus. The endometrium looked erythematous. On the anterior wall just adjacent to the left tubal ostia there was a 1-1/2 cm flat polyp. There was also another small polyp on the left side anteriorly. Operative note:: She was taken the operating room where LMA anesthesia was found to be adequate. She was prepped abnormal sterile fashion in the lithotomy position. The anterior lip of the cervix was grasped with a tenaculum and a weighted speculum is placed in vagina. The cervix was already dilated and using a #9 curved Pickett suction curette I evacuated the uterine contents of clot. This was followed by examination with a hysteroscope. The findings were as previously dictated. I then changed scopes to a MyoSure and spoke to the patient's mother will reobtain consent for a polypectomy. Using the MyoSure device I was able to easily shave off the polyps within the endometrial cavity. There was good hemostasis after this. I then injected a total of 30 cc of 0.25% ropivacaine at the 3:00, 5:00, 7:00, and 9:00 positions of the cervix. I then inserted 600 mcg of Cytotec into the patient's rectum. She tolerated procedure well and was taken recovery room in excellent condition. All sponge and instrument counts were correct. The estimated blood loss intraoperatively was less than 50 cc. Condition: stable Disposition: PACU Specimens:: Endometrial curettings, endometrial polyp Complications:: None
--- NOTE | 2024-12-13 12:10 | EXP.ANES.I ---
[facility] Anesthesia Record Part I Anesthesia Record I Intake, IV Amount: 800 Hydration: Adequate Estimated blood loss (mL): 20 Urine output (mL): 75 Blood Pressure: 140/61 SaO2: 96 Pulse Rate: 94 Airway Patency: Patent Respiratory Rate: 18 Temperature: 98.3 F Patient is:: Awake, Drowsy and Stable Stable to PACU at:: 12:14
[2024-12-13 13:11] LABS: Hematocrit 24.5 % (37.0-47.0); Hemoglobin 7.8 g/dL (12.2-16.2)
[2024-12-13] MEDS: ROPIVACAINE 0.5% 30ML VIAL 150 MG (13:39)
[2024-12-13] MEDS: SODIUM CHLORIDE IRRIG SOLUTION 3,000 ML 3000 ML IR (13:39)
--- NOTE | 2024-12-13 14:52 | P.PNANES_ITS ---
[facility] Anesthesia Record Part II Anesthesia Record Part II Discharge Time: 13:05 Destination: Surgical Day Care (OP Surgery) PACU nurse assessment reviewed?: Yes Patient Condition:: Good Anesthesia Complications:: None Swallowing reflex intact?: Yes Airway Patency: Patent Cyanosis?: No Blood Pressure: 128/75 SaO2: 100 Respiratory Rate: 16 Pulse Rate: 70 Temperature: 97.5 F Mental Status: Alert & Oriented Pain level:: 0 Nausea and/or vomitting:: None Intake, IV Amount: 0 Hydration: Adequate
[2024-12-13 16:12] LABS: Ferritin 8.41 ng/ml (6.24-137)
== END 2024-12-13 13:05 | disposition home or self-care (01) ==
PROVIDERS: Visit Provider Nurse Practitioner Obstetrics & Gynecology
PROC: 0UDB8ZZ Extraction of Endometrium, Via Natural or Artificial Opening Endoscopic (ICD-10-PCS; CPT 58558; principal; 2024-12-13 11:00)
DX: N92.0 Excessive and frequent menstruation with regular cycle (principal); D64.9 Anemia, unspecified; N84.0 Polyp of corpus uteri; F17.210 Nicotine dependence, cigarettes, uncomplicated; Z79.3 Long term (current) use of hormonal contraceptives; Z91.09 Other allergy status, other than to drugs and biological substances
CPT/HCPCS: 58558; 36415; 82728; 85014; 85018; J0690; J1100; J1200; J2003; J2250; J2405; J2704; J2795; J3010; J7030

== ENCOUNTER 2025-07-02 08:54 | Outpatient (CLI) | payer OTHER, SELFPAY ==
[2025-07-02 09:22] LABS: Hematocrit 39.3 % (37.0-47.0); Hemoglobin 12.1 g/dL (12.2-16.2); Immature Granulocytes % 0 %; Mean Corpuscular HGB Conc 30.8 g/dL (31.8-35.4); Mean Corpuscular Hemoglobin 25.2 pg (27.0-31.2); Mean Corpuscular Volume 81.7 fl (81-99); Nucleated Red Blood Cells % 0 %; Platelet Count 296 K/mm3 (142-424); Red Blood Count 4.81 M/mm3 (4.20-5.40); Red Cell Distribution Width-SD 49.9 fL; White Blood Count 4.5 K/mm3 (4.8-10.8)
[2025-07-02 10:08] LABS: Hemoglobin A1C 5.3 % (4.0-6.0)
[2025-07-02 10:19] LABS: Alanine Aminotransferase 19 U/L (12-78); Albumin Level 4.4 g/dl (3.5-5.0); Albumin/Globulin Ratio 1.5 (1.1-1.8); Alkaline Phosphatase 99 U/L (38-126); Anion Gap 12.2 mEq/L (5-15); Aspartate Amino Transferase 24 U/L (14-36); Bilirubin,Total 0.7 mg/dl (0.2-1.3); Blood Urea Nitrogen 10 mg/dl (7-17); Calcium 9.4 mg/dl (8.4-10.2); Carbon Dioxide 20 mmol/L (22.0-30.0); Chloride 111 mmol/L (98-107); Cholesterol 166 mg/dl (140-200); Creatinine,Serum 0.90 mg/dl (0.52-1.04); Estimated Glomerular Filt Rate 75 ml/min (>60); GFR (African American) 91 ML/MIN (>60); Globulin 2.9 g/dL (1.3-3.2); Glucose 101 mg/dl (74-100); HDL Cholesterol 35 mg/dl (40-60); Potassium 4.2 mmoL/L (3.5-5.1); Sodium 139 mmol/L (136-145); Total Protein,Serum 7.3 g/dl (6.3-8.2); Triglycerides 149 mg/dl (30-150)
[2025-07-02 10:54] LABS: Thyroid Stimulating Hormone 2.10 uIU/mL (0.465-4.68)
== END 2025-07-02 23:59 | disposition home or self-care (01) ==
LOC: LAB 08:56
PROVIDERS: PCP Nurse Practitioner Family; Visit Provider Nurse Practitioner Family
DX: I10 Essential (primary) hypertension (principal)
CPT/HCPCS: 36415; 80053; 80061; 83036; 84443; 85025